=== PATIENT | female | born 1945 | race Caucasian/White ===

== ENCOUNTER 2016-06-28 12:12 | Inpatient (IN) | payer MEDICARE, OTHER ==
[2016-06-28] MEDS ORDERED: Ondansetron INJ* 2 MG/ML VIAL IV ONE (12:47)
[2016-06-28] MEDS ORDERED: NS 0.9% 1000 ML* 2,000 ML IV ONE (12:47)
[2016-06-28] MEDS ORDERED: HYDROmorphone* 2 MG/ML 1 ML SYR IV SLOW PU ONE (12:47)
[2016-06-28] MEDS ORDERED: Ondansetron INJ* 2 MG/ML VIAL IV PRN (13:35)
[2016-06-28 13:40] LABS: Hematocrit 31 % (35-47); Hemoglobin 10.1 g/dl (12.0-16.0); Mean Corpuscular HGB Conc 33 g/dl (31-36); Mean Corpuscular Hemoglobin 32 pg (27-31); Mean Corpuscular Volume 96 fL (80-97); Mean Platelet Volume 8 um3 (7.4-10.4); Red Blood Count 3.18 10^6/ul (4.0-5.4); Red Cell Distribution Width 15 % (10.5-15); White Blood Count 10.7 10^3/ul (3.5-10.8)
[2016-06-28] MEDS ORDERED: Loperamide CAP* 2 MG PO PRN (13:48)
[2016-06-28 13:55] LABS: Calcium 9.7 mg/dL (8.6-10.3); EGFR African American 76.4 (>60); EGFR Non-African American 59.4 (>60)
[2016-06-28] MEDS ORDERED: Cyclobenzaprine TAB* 10 MG PO PRN (14:13)
[2016-06-28] MEDS ORDERED: Al Hydrox/Mg Hydrox/Simet LIQ* 30 ML UDC PO PRN (14:27)
[2016-06-28] MEDS ORDERED: fentaNYL PATCH 12 MCG/HR TRANSDERM SCH (15:00)
[2016-06-28] MEDS: oxyCODONE TAB* 5 MG TAB PO PRN ×2 (15:47→22:02)
[2016-06-28] MEDS: Enoxaparin(*) 40 MG/0.4 ML SYR SUBCUT SCH (15:47)
[2016-06-28] MEDS: NS 0.9% 1000 ML* 1,000 ML IV SCH (15:56)
--- NOTE | 2016-06-28 16:33 | ED ---
Mod[place] Yan Adam, scribed for Gentry Hanley MD on 06/28/16 at 1237 . Back Pain - HPI Summary HPI Summary: Pt is a 71 year old female presenting with lower back pain. She was on hydrocodone for chronic back pain for years and she recently changed to oxycodone but she states that she has been vomiting them up recently. She also c /o diarrhea. She denies any burning during urination, blood in the urine, or any other urinary symptoms. Pt states that the back pain developed 6-7 weeks ago and after it persisted for 3 weeks she went to Dr. Cian. He set her up with a pain patch which she states does not alleviate the pain. Then she called Dr. Hathaway who set her up with an MRI on 06/21. She states that he called her and told her that the MRI revealed a slipped disc. The impression from the MRI report indicates degenerative disc disease, osteoarthritis, scoliosis, and multilevel neural foraminal narrowing. However, there is also an addendum stating: "On further review, there is an enhancing lesion of the pedicle of L2 on the right consistent with metastatic disease.. There is no significant epidural extension. There is mild paravertebral enhancement. This is best seen on axial image 21 of series 9." The pt is followed by Dr. Hathaway for her lung cancer. - History of Current Complaint Chief Complaint: EDBackInjuryPain Stated Complaint: BACK PAIN Time Seen by Provider: 06/28/16 12:28 Hx Obtained From: Patient Onset/Duration: Gradual Onset, Lasting Weeks, Still Present Onset/Duration: Atraumatic Timing: Constant Back Pain Location: Is Discrete @ - Lower back Severity Initially: Moderate Severity Currently: Moderate Pain Intensity: 10 Pain Scale Used: 0-10 Numeric Aggravating Symptom(s): Movement Alleviating Symptom(s): Nothing Associated Signs And Symptoms: Positive: Other - Nausea, vomiting, diarrhea - Allergies/Home Medications Allergies/Adverse Reactions: Allergies Allergy/AdvReac Type Severity Reaction Status Date / Time Carbamazepine Allergy Altered Verified 06/28/16 12:13 Mental Status Latex Allergy Unknown Verified 06/28/16 12:13 Reaction Details Nickel Allergy Unknown Verified 06/28/16 12:13 Reaction Details Hydrochlorothiazide AdvReac Mild See Comment Verified 06/28/16 12:13 w/Triamterene [From Dyazide] Home Medications: Home Medications Docusate CAP* [Colace Cap*] 100 mg PO DAILY 06/28/16 [History Confirmed 06/28/16 ] Fluocinolone Acetonide 0.01 % TOPICAL TID PRN 06/28/16 [History Confirmed ] Lidocaine PATCH 5%* [Lidoderm 5% Patch*] 1 patch TRANSDERM Q12HR 06/28/16 [ History Confirmed 06/28/16] Meloxicam(NF) [Mobic(NF)] 7.5 mg PO DAILY 06/28/16 [History Confirmed 06/28/16] Oxycodone TAB(NF) [Oxycodone HCl 10 MG] 10 - 20 mg PO Q4HR PRN MDD 80 mg [History Confirmed 06/28/16] Spironolactone TAB* [Aldactone TAB*] 25 mg PO DAILY 06/28/16 [History Confirmed 06/28/16] PMH/Surg Hx/FS Hx/Imm Hx Endocrine/Hematology History: Reports: Hx Systemic Lupus Erythematosus, Hx Thyroid Disease, Other Endocrine/Hematological Disorders - lupus Denies: Hx Diabetes Cardiovascular History: Reports: Hx Hypercholesterolemia, Hx Hypertension Denies: Hx Congestive Heart Failure, Hx Pacemaker/ICD Respiratory History: Reports: Hx Asthma, Hx Lung Cancer, Other Respiratory Problems/Disorders - ON 2L N/C AT HOME, O2 SAO2 ALWAYS LOW GI History: Reports: Other GI Disorders - hx of ulcers History: Denies: Hx Renal Disease Musculoskeletal History: Reports: Hx Arthritis - OSTEO, Hx Rheumatoid Arthritis , Hx Back Problems, Hx Scoliosis Sensory History: Reports: Hx Contacts or Glasses Denies: Hx Cataracts, Hx Hearing Aid Opthamlomology History: Reports: Hx Contacts or Glasses Denies: Hx Cataracts Neurological History: Reports: Other Neuro Impairments/Disorders - TRIGEMINAL NEURALAGIA Psychiatric History: Reports: Hx Depression Denies: Hx Panic Disorder - Cancer History Cancer Type, Location and Year: lung cancer-NO TREATMENT AT THIS TIME Hx Chemotherapy: Yes Hx Radiation Therapy: Yes - Surgical History Surgery Procedure, Year, and Place: Tonsillectomy and Adenoidectomy, D&C. Rt INDEX FINGER DEBRIDEMENT - FROM INFECTION Hx Anesthesia Reactions: No - Immunization History Date of Tetanus Vaccine: Up to date Date of Influenza Vaccine: Fall 2012 Infectious Disease History: No Infectious Disease History: Denies: Traveled Outside the [place] in Last 30 Days - Family History Known Family History: Positive: Other - cancer Family History: daughter lung cancer. mother, aunt breast cancer. sister colon and panceratic cancer - Social History Occupation: Retired Lives: With Family - Alcohol Use: Occasionally Alcohol Amount: 1 GLASS WINE MONTHLY Hx Substance Use: No Substance Use Type: Reports: None Hx Tobacco Use: Yes Smoking Status (MU): Former Smoker Review of Systems Negative: Fever, Chills Negative: Erythema Negative: Sore Throat Negative: Chest Pain Negative: Shortness Of Breath, Cough Positive: Vomiting, Diarrhea, Nausea. Negative: Abdominal Pain Negative: burning, dysuria, hematuria Positive: Myalgia - Lower back Negative: Rash Neurological: Other - Negative dizziness All Other Systems Reviewed And Are Negative: Yes Physical Exam - Summary Physical Exam Summary: Constitutional: Well-developed, Well-nourished, Alert. (-) Distressed Skin: Warm, Dry HENT: Normocephalic; Atraumatic Eyes: Conjunctiva normal Neck: Musculoskeletal ROM normal neck. (-) JVD, (-) Stridor, (-) Tracheal deviation Cardio: Rhythm regular, rate normal, Heart sounds normal; Intact distal pulses; The pedal pulses are 2+ and symmetric. Radial pulses are 2+ and symmetric. (-) Murmur Pulmonary/Chest wall: Effort normal. (-) Respiratory distress, (-) Wheezes, (-) Rales Abd: Soft, (-) Tenderness, (-) Distension, (-) Guarding, (-) Rebound Musculoskeletal: Profound tenderness in the lumbar area. Even the skin is sensitive to touch. Intact symmetric strength and sensation in bilateral lower extremities. Lymph: (-) Cervical adenopathy Neuro: Alert, Oriented x3 Psych: Mood and affect Normal Triage Information Reviewed: Yes Vital Signs On Initial Exam: Initial Vitals Temp Pulse Resp BP Pulse Ox 97.7 F 96 18 99/69 95 06/28/16 12:13 06/28/16 12:13 06/28/16 12:13 06/28/16 12:13 06/28/16 12:13 Vital Signs Reviewed: Yes Diagnostics - Vital Signs Vital Signs Temp Pulse Resp BP Pulse Ox 06/28/16 12:13 97.7 F 96 18 99/69 95 - Laboratory Lab Results: Lab Results 06/28/16 06/28/16 Range/Units 13:30 13:30 WBC 10.7 (3.5-10.8) 10^3/ul RBC 3.18 L (4.0-5.4) 10^6/ul Hgb 10.1 L (12.0-16.0) g/dl Hct 31 L (35-47) % MCV 96 (80-97) fL MCH 32 H (27-31) pg MCHC 33 (31-36) g/dl RDW 15 (10.5-15) % Plt Count 154 (150-450) 10^3/ul MPV 8 (7.4-10.4) um3 Sodium 134 (133-145) mmol/L Potassium 4.0 (3.5-5.0) mmol/L Chloride 95 L (101-111) mmol/L Carbon Dioxide 30 (22-32) mmol/L Anion Gap 9 (2-11) mmol/L BUN 27 H (6-24) mg/dL Creatinine 0.93 (0.51-0.95) mg/dL Est GFR ( Amer) 76.4 (>60) Est GFR (Non-Af Amer) 59.4 (>60) BUN/Creatinine Ratio 29.0 H (8-20) Glucose 112 H (70-100) mg/dL Calcium 9.7 (8.6-10.3) mg/dL Result Diagrams: 06/28/16 13:30 06/28/16 13:30 Lab Statement: Any lab studies that have been ordered have been reviewed, and results considered in the medical decision making process. Back Pain Course/Dx - Diagnoses Provider Diagnoses: Metastatic disease of bone, Low back pain, Failure to thrive - Provider Notifications Discussed Care of Patient With: Dr. Watson at 12:55. She agrees with the plan to give the patient IV fluids and pain control. Someone from oncology will come to the ED to consult with the patient and discuss the current status of her cancer. Tatum from oncology services at 13:35. They will admit the patient. Discharge - Discharge Plan Condition: Fair Disposition: ADMITTED TO [facility] The documentation as recorded by the Modesto silvestre Adam accurately reflects the service I personally performed and the decisions made by , Gentry Hanley MD.
[2016-06-28] MEDS: HYDROmorphone* 2 MG/ML 1 ML SYR IV SLOW PU PRN ×2 (18:29→23:32)
[2016-06-28] MEDS: fentaNYL Patch Check Q Shift 1 NOTE SCH (19:09)
[2016-06-28] MEDS ORDERED: Iodixanol* (CONTRAST) 320 MG/ML 100 ML SDV IV ONE (20:12)
--- NOTE | 2016-06-28 20:36 | RAD ---
HISTORY: Lung cancer COMPARISONS: CT of the chest dated June 06, 2016, PET/CT dated March 09, 2016 TECHNIQUE: Multiple contiguous axial CT scans were obtained of the chest, abdomen, and pelvis after the administration of intravenous contrast. Coronal and sagittal multiplanar reformations are submitted for review.. Oral contrast was administered. Delayed images were obtained through the abdomen and pelvis. FINDINGS: CHEST NECK AND THYROID: The lower neck and thyroid are unremarkable. CHEST WALL: There is no lower cervical, axillary, or supraclavicular lymphadenopathy by size criteria. HEART AND PERICARDIUM: The heart is unremarkable. AORTA AND PULMONARY VASCULATURE: There is calcification of the thoracic aorta. The pulmonary vasculature is unremarkable. MEDIASTINUM: There is no mediastinal lymphadenopathy by size criteria. ELLE: There are enlarged right hilar lymph nodes measuring up to 2 cm in short axis. AIRWAY AND ESOPHAGUS: There is bronchiectasis of the left upper lobe LUNG PARENCHYMA: There is diffuse centrilobular edematous change. There is persistent airspace disease of the left upper lobe. There is a 0.4 cm nodule of the left upper lobe on axial image 24. There is a transient nodule of the left lower lobe on axial image 32 measuring 0.6 cm. PLEURA: No pleural abnormalities are noted. BONES AND SOFT TISSUES: Degenerative changes are noted of the spine ABDOMEN/PELVIS: LIVER: The liver is normal in shape, size, contour, and attenuation. BILE DUCTS: There is no intrahepatic or extrahepatic biliary dilatation. GALLBLADDER: The gallbladder is normal, without pericholecystic inflammatory change. PANCREAS: The pancreas is normal, without mass or ductal dilatation. SPLEEN: Normal in size and appearance. UPPER GI TRACT: Evaluation of the gastrointestinal tract is limited by incomplete gastric distention. The upper GI tract is unremarkable. SMALL BOWEL \T\ MESENTERY: The small bowel is normal in contour, course, and caliber. There is no obstruction or dilatation. COLON: There are multiple diverticula of the distal colon. There is no pericolonic inflammatory change. ADRENALS: Normal bilaterally. KIDNEYS: The kidneys are normal in shape, size, contour, and axis. There is no hydronephrosis or nephrolithiasis. BLADDER: The bladder is smooth in contour. PELVIC ORGANS: The uterus is fibroid AORTA: There is calcific atherosclerotic disease of the abdominal aorta and its branches, without aneurysmal dilatation IVC: Unremarkable LYMPH NODES: There is no lymphadenopathy by size criteria. ABDOMINAL WALL: There is no evidence for abdominal wall hernia. BONES: There is a scoliotic curvature of the spine. There is degenerative change of the hips and spine OTHER: None IMPRESSION: PERSISTENT AIRSPACE DISEASE OF THE LEFT LUNG WITH MULTIPLE LEFT LUNG NODULES MEASURING UP TO 0.6 CM. RIGHT HILAR LYMPHADENOPATHY. ATHEROSCLEROSIS. DIVERTICULOSIS
[2016-06-28] MEDS: Lidocaine PATCH 5%* 1 PATCH TRANSDERM SCH (21:51)
[2016-06-28] MEDS: Gabapentin CAP(*) 300 MG PO SCH (22:02)
[2016-06-28] MEDS: Amitriptyline TAB* 25 MG PO PRN (22:12)
[2016-06-29] MEDS: NS 0.9% 1000 ML* 1,000 ML IV SCH ×2 (04:04→15:00)
[2016-06-29] MEDS: HYDROmorphone* 2 MG/ML 1 ML SYR IV SLOW PU PRN (04:47)
[2016-06-29] MEDS: Levothyroxine TAB* 125 MCG TAB PO SCH (06:16)
[2016-06-29 06:46] LABS: Hematocrit 28 % (35-47); Hemoglobin 9.3 g/dl (12.0-16.0); Mean Corpuscular HGB Conc 33 g/dl (31-36); Mean Corpuscular Hemoglobin 32 pg (27-31); Mean Corpuscular Volume 98 fL (80-97); Mean Platelet Volume 8 um3 (7.4-10.4); Red Blood Count 2.89 10^6/ul (4.0-5.4); Red Cell Distribution Width 14 % (10.5-15); White Blood Count 6.4 10^3/ul (3.5-10.8)
[2016-06-29 06:52] LABS: Albumin 3.1 g/dL (3.2-5.2); BUN/Creatinine Ratio 23.8 (8-20); Calcium 8.9 mg/dL (8.6-10.3); EGFR Non-African American 66.8 (>60); Globulin 3.4 g/dL (2-4); Total Bilirubin 0.8 mg/dL (0.2-1.0); Total Protein 6.5 g/dL (6.4-8.9)
[2016-06-29] MEDS: fentaNYL Patch Check Q Shift 1 NOTE SCH ×2 (07:13→19:09)
[2016-06-29 07:50] LABS: Urine Bacteria Absent (Absent); Urine Bilirubin Negative (Negative); Urine Glucose Negative (Negative); Urine Nitrite Negative (Negative)
[2016-06-29] MEDS: Aspirin Low Dose CHEW TAB* 81 MG PO SCH (08:51)
[2016-06-29] MEDS: Docusate CAP* 100 MG PO SCH (08:51)
[2016-06-29] MEDS: Gabapentin CAP(*) 300 MG PO SCH ×3 (08:51→20:30)
[2016-06-29] MEDS: Cetirizine* 10 MG TAB PO SCH (08:51)
[2016-06-29] MEDS: Atorvastatin* 10 MG TAB PO SCH (08:51)
[2016-06-29] MEDS: Cholecalciferol TAB* 1000 UNITS PO SCH (08:51)
[2016-06-29] MEDS: Omeprazole CAP* 20 MG PO SCH (08:52)
[2016-06-29] MEDS: Meloxicam(NF) 7.5 MG TAB PO SCH (11:17)
[2016-06-29] MEDS: Lidocaine Patch REMOVE* 1 NOTE MISC PATCH OFF SCH (11:25)
[2016-06-29] MEDS: Lidocaine PATCH 5%* 1 PATCH TRANSDERM SCH (11:25)
--- NOTE | 2016-06-29 12:23 | CONSULT ---
Consult Consult: Neurosurgery Consult Date of consult: 06/29/16 Reason for consult: Left lower extremity and low back pain HPI: This is a 71 year old female with past medical history significant for lung cancer, HTN, HLD, lupus, and hypothyroidism, who presented to the [facility] complaining of low back, left hip and left lower extremity pain for the past 6- 7 weeks. Currently she is experiencing low back pain with radiation primarily to the left hip and occasionally down the posterior thigh and into the lower leg , sparing the foot. Symptoms are worse with movement such as getting up out of bed. She has modified her gait to allow less weight bearing on the left leg, stating that she shuffles the left leg secondary to pain with weight bearing. Symptoms improve with laying down and limiting movement. She denies numbness, tingling and weakness of the lower extremities bilaterally. No pain in the right leg. She reports previous episodes of low back pain over the past 30 years for which she self medicated with pain medications and applied heat; symptoms always resolved. Allergies: 1. Carbamazepine 2. Latex 3. Nickel 4. Hydrochlorothiazide with Triamterene Home medications: 1. Amitriptyline TAB* [Elavil TAB*] 25 - 50 mg PO BEDTIME PRN 11/18/15 [History Confirmed 06/28/16] 2. Aspirin Low Dose CHEW TAB* [Aspirin Low Dose TAB*] 81 mg PO DAILY 11/18/15 [ History Confirmed 06/28/16] 3. Cholecalciferol TAB* [Vitamin D TAB*] 1,000 unit PO DAILY 11/18/15 [History Confirmed 06/28/16] 4. Gabapentin CAP(*) [Neurontin 300 CAP(*)] 900 mg PO TID 11/18/15 [History Confirmed 06/28/16] 5. Lansoprazole CAP (NF) [Prevacid CAP (NF)] 30 mg PO DAILY 11/18/15 [History Confirmed 06/28/16] 6. LevoCETirizine TAB (NF) [Xyzal TAB (NF)] 5 mg PO DAILY 11/18/15 [History Confirmed 06/28/16] 7. Levothyroxine TAB* [Synthroid 125 MCG TAB*] 125 mcg PO 0800 11/18/15 [ History Confirmed 06/28/16] 8. Pravastatin (NF) [Pravachol (NF)] 40 mg PO DAILY 11/18/15 [History Confirmed 06/28/16] 9. Acetaminophen TAB* [Tylenol TAB*] 650 mg PO Q6H PRN #0 tab 11/22/15 [Rx Confirmed 06/28/16] 10. Al Hydrox/Mg Hydrox/Matthew BULK* [Mylanta - BULK BOT*] 1 wyatt PO DAILY PRN 01/15 [History Confirmed 06/28/16] 11. Docusate CAP* [Colace Cap*] 100 mg PO DAILY 06/28/16 [History Confirmed ] 12. Fluocinolone Acetonide 0.01 % TOPICAL TID PRN 06/28/16 [History Confirmed ] 13. Lidocaine PATCH 5%* [Lidoderm 5% Patch*] 1 patch TRANSDERM Q12HR 06/28/16 [ History Confirmed 06/28/16] 14. Meloxicam(NF) [Mobic(NF)] 7.5 mg PO DAILY 06/28/16 [History Confirmed ] 15. Oxycodone TAB(NF) [Oxycodone HCl 10 MG] 10 - 20 mg PO Q4HR PRN MDD 80 mg [History Confirmed 06/28/16] 16. Spironolactone TAB* [Aldactone TAB*] 25 mg PO DAILY 06/28/16 [History Confirmed 06/28/16] Past medical history: 1. Lung cancer 2. HTN 3. Hypothyroidism 4. COPD 5. Hyperlipidemia 6. Lupus 7. GERD 8. Trigeminal neuralgia 9. Depression 10. Scoliosis Social history: The patient is retired and lives at home with her family. She is a former smoker. ROS: Full ROS completed and pertinent findings stated in HPI, all others negative. Physical Exam: Vital Signs: Temp Pulse Resp BP Pulse Ox 98.3 F 82 12 118/60 97 06/29/16 11:00 06/29/16 11:00 06/29/16 11:00 06/29/16 11:00 06/29/16 11:00 General: Alert and oriented elderly female, laying comfortably in bed. No distress HEENT: Head is normocephalic and atraumatic. PERRLA and EOMI. Sclerae anicteric. Corrective lenses in place. Gross hearing intact. Moist mucus membranes. Neck: Supple, symmetric. CV: Radial pulses 2+ and equal. Pedal pulses palpable and equal. Lungs: Breathing is nonlabored. Lungs are clear. Abdomen: NABS. Soft, nontender and nondistended. Hips: Severe tenderness with palpation of the left greater trochanter. Moderate pain with left hip rotation. No pain with palpation and rotation of right hip. Neuro: Speech is clear and coherent. CN II-XII intact. Strength in the bilateral lower extremities 5/5. Sensation intact to the bilateral lower extremities. SLR negative bilaterally. Imagin. MRI of the lumbar spine on 06/21/16 shows degenerative scoliosis most pronounced at L1-2 and disc displacement at L4-5 to the right. 2. Xray of the pelvis and left hip on 06/05/16 shows mild osteoarthritis. Assessment: This is a 71 year old female with a 6-7 week history of low back to left hip and lower extremity pain, not improved with rest, pain medication and heat. She presented to [facility] and was admitted for pain management. MRI of the lumbar spine shows HNP L4-5 to the right which is inconsistent with the patient' s symptoms. She is neurologically intact. Considering the patient's symptoms, physical exam findings and imaging results, there is no indication for neurosurgical intervention at this time. It is likely that her symptoms are related to the left hip. Plan: 1. Ortho consulted for evaluation of left hip. 2. Continue pain management. 3. No neurological surgery indicated.
[2016-06-29] MEDS ORDERED: methylPREDNISolone ACETATE 80* 80 MG/ML 1 ML VIAL IM ONE (13:44)
--- NOTE | 2016-06-29 14:18 | PN ---
Progress Note - Progress Note Note: After obtaining verbal and written consent, timeout in room preformed. Area of greatest tenderness palpated at Left greater trochanter. Region prepped with clora prep and alcohol swab. The left greater trochanteric bursa region was then injected with 80mg depomedrol and 8cc of 1% plain lidocaine without difficulty. Band aid applied to injection site. She understands that the area may become slightly more sore for a day or 2 prior to the cortisone becoming effective. She may follow up with Dr. Ruffin in the office 4-6 weeks if she continues to have lateral hip pain.
[2016-06-29] MEDS: Enoxaparin(*) 40 MG/0.4 ML SYR SUBCUT SCH (14:58)
--- NOTE | 2016-06-29 15:47 | CONS ---
ORTHOPEDIC CONSULTATION REPORT: DATE OF CONSULT: 06/29/16 SUPERVISING PHYSICIAN: Rose Ruffin MD (dictated by CHARLENE Jerry) CHIEF ORTHOPEDIC COMPLAINT: Left lateral hip pain. HISTORY OF PRESENT ILLNESS: The patient is a 71-year-old female with past medical history of hypertension, high cholesterol, lung cancer, lupus, hypothyroidism, who presented to the emergency department complaining of primarily low back pain and left lateral hip pain. She states this pain has been present for about 6 weeks. She states that she mentioned this to her primary care provider and pain medication was called in, but did not relieve her hip pain. She was frustrated that her pain is so severe that she has difficulty ambulating. She denies groin pain on the left and complained significantly of lateral leg pain with attempts at active or passive motion. She has had a longstanding history of lumbar degenerative back disease. She has been seen by Neurosurgery and it was felt that she does not have current radicular symptoms that would correlate with her current complaints. Orthopedic consultation, therefore, requested. PAST MEDICAL HISTORY: As above, hypertension, hyperlipidemia, lupus, hypothyroidism, chronic lumbar back pain, GERD, trigeminal neuralgia, depression , history of scoliosis. MEDICATIONS: 1. She takes Elavil 25 to 50 mg p.o. q.h.s. p.r.n. 2. Baby aspirin p.o. daily. 3. Vitamin D 1000 units p.o. daily. 4. Gabapentin 900 mg p.o. t.i.d. 5. Prevacid 30 mg p.o. daily. 6. Xyzal tablet 5 mg p.o. daily. 7. Levothyroxine 125 mcg p.o. daily. 8. Pravachol 40 mg p.o. daily. 9. Acetaminophen 650 mg p.o. q.h.s. p.r.n. 10. Mylanta p.o. daily p.r.n. 11. Fluocinolone topical cream t.i.d. 12. Lidoderm patch q.12 h. p.r.n. hip pain. 13. Meloxicam 7.5 mg p.o. daily. 14. Spironolactone 25 mg p.o. daily. 15. Oxycodone 10 to 20 mg p.o. q.4 h. p.r.n. severe pain. ALLERGIES: LATEX, NICKEL, HYDROCHLOROTHIAZIDE, CARBAMAZEPINE. SOCIAL HISTORY: The patient lives at home. She is a prior smoker. Denies use of alcohol. REVIEW OF SYSTEMS: Denies loss of consciousness, lightheadedness, dizziness, shortness of breath, chest pain, palpitations. Denies numbness or significant muscular weakness in either lower extremity, just complains of pain with motion to the lateral hip, the left lower extremity. PHYSICAL EXAMINATION: She is alert and oriented x3, in no acute distress. HEENT: PERRLA. EOMI. Lungs: Clear to auscultation. Heart: Regular rate and rhythm. Abdomen: Soft and nontender. Lumbar spine: She has diffuse tenderness to palpation throughout the lower lumbar segments without gross deformity, redness, swelling or erythema. The left hip fails to show any warmth , erythema or obvious edema. Passive motion of the hip does not elicit groin pain but causes lateral hip pain. She has exquisite point tenderness directly over the left greater trochanter. She has full active dorsiflexion and plantar flexion of the left ankle. EHL strength 5/5. Dorsiflexion strength 5/5. DIAGNOSTIC STUDIES/LAB DATA: X-ray examination of the pelvis reviewed with Dr. Ruffin shows minimal arthritic changes of the hip joint. No obvious fractures are identified. She does have degenerative changes noted at the lower lumbar segments of the lumbar spine. IMPRESSION: Trochanteric bursitis, left hip. PLAN: The patient is offered a Depo-Medrol injection to the trochanteric bursal region of the left hip. She elects to proceed as nothing else has been helpful in alleviating her pain. She understands risks including but not limited to irritation at the injection site, increased achiness post cortisone injection prior to improvement. We will see her in the office in followup in roughly 1 month to see how she responded to the cortisone injection. CHARLENE MCGINNIS [id number]/[facility] #: [id number] MICHAELA
[2016-06-29] MEDS: oxyCODONE TAB* 5 MG TAB PO PRN ×2 (16:29→20:30)
[2016-06-30] MEDS: oxyCODONE TAB* 5 MG TAB PO PRN ×5 (00:31→22:20)
[2016-06-30] MEDS: Amitriptyline TAB* 25 MG PO PRN ×3 (00:32→22:48)
[2016-06-30] MEDS: NS 0.9% 1000 ML* 1,000 ML IV SCH ×2 (00:55→12:26)
[2016-06-30] MEDS: Levothyroxine TAB* 125 MCG TAB PO SCH (05:24)
[2016-06-30 06:17] LABS: Albumin 2.8 g/dL (3.2-5.2); BUN/Creatinine Ratio 25.8 (8-20); Calcium 8.7 mg/dL (8.6-10.3); EGFR African American 113.5 (>60); EGFR Non-African American 88.3 (>60); Globulin 3.3 g/dL (2-4); Total Bilirubin 0.4 mg/dL (0.2-1.0); Total Protein 6.1 g/dL (6.4-8.9)
[2016-06-30] MEDS: fentaNYL Patch Check Q Shift 1 NOTE SCH ×2 (07:11→18:57)
[2016-06-30] MEDS: Docusate CAP* 100 MG PO SCH (09:33)
[2016-06-30] MEDS: Aspirin Low Dose CHEW TAB* 81 MG PO SCH (09:33)
[2016-06-30] MEDS: Gabapentin CAP(*) 300 MG PO SCH ×3 (09:33→19:54)
[2016-06-30] MEDS: Atorvastatin* 10 MG TAB PO SCH (09:34)
[2016-06-30] MEDS: Omeprazole CAP* 20 MG PO SCH (09:34)
[2016-06-30] MEDS: Cholecalciferol TAB* 1000 UNITS PO SCH (09:35)
[2016-06-30] MEDS: Lidocaine PATCH 5%* 1 PATCH TRANSDERM SCH (09:35)
[2016-06-30] MEDS: Cetirizine* 10 MG TAB PO SCH (09:35)
[2016-06-30] MEDS: Meloxicam(NF) 7.5 MG TAB PO SCH (09:43)
[2016-06-30] MEDS: Lidocaine Patch REMOVE* 1 NOTE MISC PATCH OFF SCH ×2 (09:44→22:19)
[2016-06-30] MEDS ORDERED: Metaxalone TAB* 800 MG PO ONE (10:26)
--- NOTE | 2016-06-30 11:27 | PN ---
Progress Note - Progress Note SOAP: Subjective: [71 y/o female admitted for back, hip pain. Patient had trochanteric bursa injection 06/29. Patient reports having decreased pain over her hip overnight and today, continues to have back pain and radiating pain down L leg. ] Objective: [General- appears in mild to moderate amount of pain, sitting in bed, AO MSK- Injection site over L hip without redness, drainage. Non-tender to mild palpation. ] Laboratory Results - last 24 hr 06/30/16 05:11 Sodium 133 Potassium 4.0 Chloride 99 L Carbon Dioxide 30 Anion Gap 4 BUN 17 Creatinine 0.66 Est GFR ( Amer) 113.5 Est GFR (Non-Af Amer) 88.3 BUN/Creatinine Ratio 25.8 H Glucose 119 H Calcium 8.7 Total Bilirubin 0.40 AST 48 H ALT 43 Alkaline Phosphatase 138 H Total Protein 6.1 L Albumin 2.8 L Globulin 3.3 Albumin/Globulin Ratio 0.8 L Vital Signs Temp 98.1 F 06/30/16 07:26 Pulse 65 06/30/16 07:26 Resp 18 06/30/16 09:34 BP 118/62 06/30/16 07:26 Pulse Ox 97 06/30/16 07:26 Intake & Output 06/29/16 06/30/16 06/30/16 18:59 06:59 18:59 Intake Total 2023 2205 230 Output Total 900 Balance 2023 1305 230 Intake: IV Fluids 1004 1545 NS (0.9%) 1004 1545 Oral 1020 660 230 Output: Urine 900 Other: Estimated Void Medium Small # Bowel Movements 0 0 # Voids 2 2 Assessment: [71 y/o with trochanteric bursitis s/p steroid injection 06/29 ] Plan: [- Follow up with Dr. Ruffin within 1 month for questions/ if pain returns. - Ortho to sign off. ]
[2016-06-30] MEDS: Enoxaparin(*) 40 MG/0.4 ML SYR SUBCUT SCH (13:37)
[2016-06-30] MEDS: HYDROmorphone* 1 MG/ML 1 ML SYR IV SLOW PU PRN ×2 (13:43→23:42)
[2016-06-30] MEDS ORDERED: oxyCODONE TAB* 5 MG TAB PO ONE (16:00)
[2016-06-30] MEDS ORDERED: fentaNYL PATCH 25 MCG/HR TRANSDERM SCH (18:05)
--- NOTE | 2016-06-30 18:18 | PN ---
Progress Note - Progress Note SOAP: ADDENDUM: sever pain, no better then admission. Not ambulatory and no support at home. Pain across pelvis and down leg. - Increase Fentanyl to 50 mcg - Oxycodone 10 mg q 3 - MRI pelvis, bone scan (can be in patient or out patient) - Bx L2 lesion (can be in patient or out patient)
[2016-06-30] MEDS ORDERED: Gadoteridol* (CONTRAST) 279.3 MG/ML 10 ML IV ONE (21:37)
[2016-06-30] MEDS: fentaNYL PATCH 50 MCG/HR TRANSDERM SCH (22:16)
[2016-07-01] MEDS: oxyCODONE TAB* 5 MG TAB PO PRN ×5 (02:52→21:06)
[2016-07-01] MEDS: NS 0.9% 1000 ML* 1,000 ML IV SCH ×2 (03:53→16:06)
[2016-07-01] MEDS: Levothyroxine TAB* 125 MCG TAB PO SCH (05:22)
[2016-07-01] MEDS: fentaNYL Patch Check Q Shift 1 NOTE SCH ×2 (06:53→19:10)
[2016-07-01] MEDS: HYDROmorphone* 1 MG/ML 1 ML SYR IV SLOW PU PRN (08:21)
--- NOTE | 2016-07-01 08:47 | PN ---
Progress Note - Progress Note SOAP: Subjective: very painful evening. can not get hip comfortable. lying flat for MRI very difficult. Objective: Vital Signs Temp Pulse Resp BP Pulse Ox 97.9 F 83 18 124/58 95 06/30/16 22:14 06/30/16 22:14 07/01/16 08:21 07/01/16 08:34 06/30/16 22:14 perr eomi op moist cta bl s1 s2 nl soft nt +bs ttp over left hip, did not move it warm legs no edema A+O x 3 MRI: personally reviewed with Dr. Mark. large tumor in left femur and neck with surrounding muscular edema Al Hydrox/Mg Hydrox/Simethicone (Maalox Plus*) 30 ml PO DAILY PRN PRN Reason: INDIGESTION Amitriptyline HCl (Elavil Tab*) 25 mg PO BEDTIME PRN PRN Reason: SLEEP Last Admin: 06/30/16 22:48 Dose: 25 mg Aspirin (Aspirin Low Dose Tab*) 81 mg PO DAILY [facility] Last Admin: 06/30/16 09:33 Dose: 81 mg Atorvastatin Calcium (Lipitor*) 10 mg PO DAILY [facility] PRN Reason: Protocol Last Admin: 06/30/16 09:34 Dose: 10 mg Cetirizine HCl (Zyrtec*) 10 mg PO DAILY [facility] Last Admin: 06/30/16 09:35 Dose: 10 mg Cholecalciferol (Vitamin D Tab*) 1,000 units PO DAILY [facility] Last Admin: 06/30/16 09:35 Dose: 1,000 units Docusate Sodium (Colace Cap*) 100 mg PO DAILY [facility] Last Admin: 06/30/16 09:33 Dose: 100 mg Enoxaparin Sodium (Lovenox(*)) 40 mg SUBCUT Q24H [facility] Last Admin: 06/30/16 13:37 Dose: 40 mg Fentanyl (Duragesic Patch 50 Mcg/Hr*) 50 mcg TRANSDERM Q72H [facility] Last Admin: 06/30/16 22:16 Dose: 50 mcg Gabapentin (Neurontin Cap(*)) 900 mg PO TID [facility] Last Admin: 06/30/16 19:54 Dose: 900 mg Hydromorphone HCl (Dilaudid Iv*) 0.5 mg IV SLOW PU Q4H PRN PRN Reason: PAIN - UNRELIEVED Last Admin: 07/01/16 08:21 Dose: 0.5 mg Sodium Chloride (Ns 0.9% 1000 Ml*) 1,000 mls @ 100 mls/hr IV PER RATE [facility] Last Admin: 07/01/16 03:53 Dose: 100 mls/hr Levothyroxine Sodium (Synthroid Tab*) 125 mcg PO 0600 [facility] Last Admin: 07/01/16 05:22 Dose: 125 mcg Lidocaine (Lidoderm 5% Patch*) 1 patch TRANSDERM DAILY [facility] Last Admin: 06/30/16 09:35 Dose: 1 patch Loperamide HCl (Imodium Cap*) 2 mg PO .SEE DIRECTIONS PRN PRN Reason: DIARRHEA Omeprazole (Prilosec Cap*) 20 mg PO DAILY [facility] PRN Reason: Protocol Last Admin: 06/30/16 09:34 Dose: 20 mg Ondansetron HCl (Zofran Inj*) 4 mg IV Q6H PRN PRN Reason: NAUSEA Oxycodone HCl (Roxycodone Tab*) 10 mg PO Q3H PRN PRN Reason: moderate pain Last Admin: 07/01/16 02:52 Dose: 10 mg Pharmacy Profile Note (Fentanyl Patch Check Q Shift) 1 note N/A 0700,1900 [facility] Last Admin: 07/01/16 06:53 Dose: 1 note Pharmacy Profile Note (Lidocaine Patch Remove*) 1 note PATCH OFF 2100 [facility] Last Admin: 06/30/16 22:19 Dose: 1 note Assessment: 71 yo F w PMH of locally advanced lung cancer in surveillance now admitted with intractable pain and found to have a large left femur lesion. Plan: -Dr. Ruffin to see today. I suspect that she will need surgical repair of this to stabilize the femur and get pathology. likely RT after -increase pain control today (increase dilaudid to 1 mg IV) -hold meloxicam pending likely surgery at some point in the next few days -cont lovenox sc DVT prophylaxis -full code
[2016-07-01] MEDS: Gabapentin CAP(*) 300 MG PO SCH ×3 (09:35→21:07)
[2016-07-01] MEDS: Atorvastatin* 10 MG TAB PO SCH (09:36)
[2016-07-01] MEDS: Omeprazole CAP* 20 MG PO SCH (09:36)
[2016-07-01] MEDS: Aspirin Low Dose CHEW TAB* 81 MG PO SCH (09:36)
[2016-07-01] MEDS: Cholecalciferol TAB* 1000 UNITS PO SCH (09:37)
[2016-07-01] MEDS: Cetirizine* 10 MG TAB PO SCH (09:37)
[2016-07-01] MEDS: Lidocaine PATCH 5%* 1 PATCH TRANSDERM SCH (09:37)
[2016-07-01] MEDS: Docusate CAP* 100 MG PO SCH (09:37)
--- NOTE | 2016-07-01 10:30 | RAD ---
INDICATION: Lung cancer, left hip pain. COMPARISON: Comparison is made with a prior MRI of the lumbar spine from June 21, [address] of the chest, abdomen and pelvis from June 28, 2016. TECHNIQUE: Axial, sagittal and coronal T1 and T2-weighted images of the pelvis were obtained. In addition axial, sagittal and coronal T1-weighted images were obtained following intravenous injection of 15 ml of ProHance nonionic contrast. FINDINGS: There is a large area of decreased signal intensity in T1-weighted images and increased signal intensity on T2-weighted images present within the left femoral neck, intertrochanteric region and proximal diaphysis. This is heterogeneous on T1-weighted images. There is diffuse contrast enhancement throughout this area. There is also increased signal intensity in T2-weighted images in the soft tissues surrounding the proximal femur with abnormal enhancement in this region. No fracture is seen. No other focal osseous abnormalities are noted. Incidental note is made of small fluid collections within both trochanteric bursa. No enlarged pelvic or inguinal lymph nodes are seen. No free intraperitoneal fluid is present. IMPRESSION: LARGE LESION WITHIN THE PROXIMAL LEFT FEMUR MOST CONSISTENT WITH METASTATIC DISEASE GIVEN THE PATIENT'S CLINICAL HISTORY. THIS WOULD PREDISPOSE INCREASED RISK FOR FRACTURE. THERE IS ALSO ABNORMAL SIGNAL AND ENHANCEMENT IN THE SURROUNDING SOFT TISSUES SUSPICIOUS FOR LOCAL TUMOR EXTENSION OR LOCALIZED INFLAMMATORY CHANGE.
--- NOTE | 2016-07-01 10:45 | PN ---
Progress Note - Progress Note SOAP: Subjective: Pt. reports 7 weeks of L lower back and L lateral hip/proximal thigh pain. She has difficulty moving hip and weightbearing. Recent consultation showed extreme ttp L greater trochanter and severe bursitis. The bursa was injected and this did not alleviate the pain. In the setting of lung cancer history and suspicious lesion L2, MRI pelvis was ordered by Dr. Hathaway. This shows metastatic disease to L proximal femur. Today patient reports 8/10 pain L lateral hip and low back. Objective: LLE - extreme ttp L paraspinal muscles and greater trochanteric region. Hip flexion to 90 degrees with lower back and lateral hip pain, no groin pain. Skin intact with no abrasions or open wounds. Distally nvi. Vital Signs: Temp Pulse Resp BP Pulse Ox 97.9 F 83 16 124/58 95 06/30/16 22:14 06/30/16 22:14 07/01/16 09:36 07/01/16 08:34 06/30/16 22:14 Assessment: 71 yo F with prior lung cancer, now presenting with likely metastasis to lumbar spine and L proximal femur. She is unable to ambulate or weightbear on LLE and has uncontrolled pain. Plan: I discussed MRI results and options with the patient and her daughter today. I gave them nonoperative options (XRT and chemo) vs operative options ( prophylactic IM nail with subsequent XRT and chemo). We discussed risks and benefits of both options. Patient wants to ambulate as soon as possible and chooses option that will prevent a fracture with the most certainty. She would like to proceed with prophylactic IM nail. I can biopsy the lesion at the time of surgery. She understands she will likely need postoperative chemo and radiation. I will order xrays L femur and knee. I will order MRI for 4/3 L femur. These films are for preop planning. Plan will be 07/04/16 L femur prophylactic IM nailing for metastatic disease and inability to ambulate. Of note, I did offer transfer of care to an orthopedic tumor specialist in [place] or [place]. The patient would like to avoid travel and wishes to be treated here. I discussed this plan with Dr. Watson who feels it is appropriate. She will facilitate management and preoperative medical optimization. Thank you for this orthopedic consultation.
--- NOTE | 2016-07-01 11:41 | RAD ---
INDICATION: Metastatic disease left femur. TECHNIQUE: 2 views of the left knee were obtained. FINDINGS: The bones are in normal alignment. No significant focal osseous abnormality or fracture is seen. No joint effusion is present. There is mild osteoarthritic change in the medial compartment of the knee. IMPRESSION: NO FOCAL OSSEOUS ABNORMALITY IS SEEN.
--- NOTE | 2016-07-01 11:44 | RAD ---
INDICATION: Left femur metastatic disease. TECHNIQUE: 2 views of the left femur were obtained. FINDINGS: The bones are in normal alignment. No significant focal osseous abnormality is noted to correlate with the prior MRI lesion in the proximal femur. IMPRESSION: NO FOCAL OSSEOUS ABNORMALITY IS SEEN TO CORRELATE WITH THE METASTATIC LESION NOTED ON THE PRIOR MRI STUDY.
[2016-07-01] MEDS: Enoxaparin(*) 40 MG/0.4 ML SYR SUBCUT SCH (13:07)
[2016-07-01] MEDS: Lidocaine Patch REMOVE* 1 NOTE MISC PATCH OFF SCH (21:13)
[2016-07-01] MEDS: Amitriptyline TAB* 25 MG PO PRN (23:35)
[2016-07-02] MEDS: NS 0.9% 1000 ML* 1,000 ML IV SCH ×2 (02:22→13:01)
[2016-07-02] MEDS: Levothyroxine TAB* 125 MCG TAB PO SCH (05:43)
[2016-07-02] MEDS: HYDROmorphone* 1 MG/ML 1 ML SYR IV SLOW PU PRN ×4 (07:22→23:34)
[2016-07-02] MEDS: oxyCODONE TAB* 5 MG TAB PO PRN ×2 (07:23→14:22)
[2016-07-02] MEDS: fentaNYL Patch Check Q Shift 1 NOTE SCH ×2 (07:28→20:00)
[2016-07-02] MEDS: Atorvastatin* 10 MG TAB PO SCH (08:31)
[2016-07-02] MEDS: Aspirin Low Dose CHEW TAB* 81 MG PO SCH (08:31)
[2016-07-02] MEDS: Omeprazole CAP* 20 MG PO SCH (08:31)
[2016-07-02] MEDS: Cetirizine* 10 MG TAB PO SCH (08:32)
[2016-07-02] MEDS: Docusate CAP* 100 MG PO SCH (08:32)
[2016-07-02] MEDS: Cholecalciferol TAB* 1000 UNITS PO SCH (08:32)
[2016-07-02] MEDS: Gabapentin CAP(*) 300 MG PO SCH ×3 (08:32→19:51)
[2016-07-02] MEDS: Lidocaine PATCH 5%* 1 PATCH TRANSDERM SCH (08:33)
--- NOTE | 2016-07-02 09:33 | PN ---
Subjective Date of Service: 07/02/16 Interval History: Patient A+O x3 sitting up on the side of the bed eating breakfast. She reports her pain is "much much better today" rating it 5/6 down from "14" reporting mostly low back pain with occasional left femur pain. Is able to bear weight but is uncomfortable. Denies any fever or chills. Reports good appetite. No N/V/ D. Denies SOB or CP. Is on home oxygen of 2L NC Objective Active Medications: Al Hydrox/Mg Hydrox/Simethicone (Maalox Plus*) 30 ml PO DAILY PRN PRN Reason: INDIGESTION Amitriptyline HCl (Elavil Tab*) 25 mg PO BEDTIME PRN PRN Reason: SLEEP Last Admin: 07/01/16 23:35 Dose: 25 mg Aspirin (Aspirin Low Dose Tab*) 81 mg PO DAILY [facility] Last Admin: 07/02/16 08:31 Dose: 81 mg Atorvastatin Calcium (Lipitor*) 10 mg PO DAILY [facility] PRN Reason: Protocol Last Admin: 07/02/16 08:31 Dose: 10 mg Cetirizine HCl (Zyrtec*) 10 mg PO DAILY [facility] Last Admin: 07/02/16 08:32 Dose: 10 mg Cholecalciferol (Vitamin D Tab*) 1,000 units PO DAILY [facility] Last Admin: 07/02/16 08:32 Dose: 1,000 units Docusate Sodium (Colace Cap*) 100 mg PO DAILY [facility] Last Admin: 07/02/16 08:32 Dose: 100 mg Enoxaparin Sodium (Lovenox(*)) 40 mg SUBCUT Q24H [facility] Last Admin: 07/01/16 13:07 Dose: 40 mg Fentanyl (Duragesic Patch 50 Mcg/Hr*) 50 mcg TRANSDERM Q72H [facility] Last Admin: 06/30/16 22:16 Dose: 50 mcg Gabapentin (Neurontin Cap(*)) 900 mg PO TID [facility] Last Admin: 07/02/16 08:32 Dose: 900 mg Hydromorphone HCl (Dilaudid Iv*) 1 mg IV SLOW PU Q4H PRN PRN Reason: PAIN - UNRELIEVED Last Admin: 07/02/16 07:22 Dose: 1 mg Sodium Chloride (Ns 0.9% 1000 Ml*) 1,000 mls @ 100 mls/hr IV PER RATE [facility] Last Admin: 07/02/16 02:22 Dose: 100 mls/hr Levothyroxine Sodium (Synthroid Tab*) 125 mcg PO 0600 [facility] Last Admin: 07/02/16 05:43 Dose: 125 mcg Lidocaine (Lidoderm 5% Patch*) 1 patch TRANSDERM DAILY [facility] Last Admin: 07/02/16 08:33 Dose: 1 patch Loperamide HCl (Imodium Cap*) 2 mg PO .SEE DIRECTIONS PRN PRN Reason: DIARRHEA Omeprazole (Prilosec Cap*) 20 mg PO DAILY [facility] PRN Reason: Protocol Last Admin: 07/02/16 08:31 Dose: 20 mg Ondansetron HCl (Zofran Inj*) 4 mg IV Q6H PRN PRN Reason: NAUSEA Oxycodone HCl (Roxycodone Tab*) 10 mg PO Q3H PRN PRN Reason: moderate pain Last Admin: 07/02/16 07:23 Dose: 10 mg Pharmacy Profile Note (Fentanyl Patch Check Q Shift) 1 note N/A 0700,1900 [facility] Last Admin: 07/02/16 07:28 Dose: 1 note Pharmacy Profile Note (Lidocaine Patch Remove*) 1 note PATCH OFF 2100 [facility] Last Admin: 07/01/16 21:13 Dose: Not Given Vital Signs 07/01/16 07/01/16 07/02/16 23:06 23:07 00:16 Temperature 97.9 F Pulse Rate 79 Respiratory 16 16 16 Rate Blood Pressure 103/58 (mmHg) O2 Sat by Pulse 93 Oximetry 07/02/16 07/02/16 07/02/16 07:09 07:22 07:23 Temperature 98.4 F Pulse Rate 74 Respiratory 18 16 16 Rate Blood Pressure 116/61 (mmHg) O2 Sat by Pulse 97 Oximetry 07/02/16 07/02/16 07/02/16 08:00 08:22 08:32 Temperature Pulse Rate Respiratory 18 18 18 Rate Blood Pressure (mmHg) O2 Sat by Pulse Oximetry Oxygen Devices in Use Now: Nasal Cannula - 2L NC Appearance: 71 yo female sitting up A+O x3 in NAD Eyes: No Scleral Icterus, PERRLA Ears/Nose/Mouth/Throat: NL Teeth, Lips, Gums, Mucous Membranes Moist Neck: NL Appearance and Movements; NL JVP Respiratory: Symmetrical Chest Expansion and Respiratory Effort, Clear to Auscultation Cardiovascular: NL Sounds; No Murmurs; No JVD, RRR, No Edema Abdominal: NL Sounds; No Tenderness; No Distention Extremities: No Edema, No Clubbing, Cyanosis, - - strength 5/5 throughout - no pain to palpation of Left femur. Skin: No Rash or Ulcers, No Nodules or Sclerosis Neurological: Alert and Oriented x 3 Lines/Tubes/Other Access: Clean, Dry and Intact Peripheral IV Nutrition: Taking PO's Result Diagrams: 06/29/16 05:46 06/30/16 05:11 Additional Lab and Data: Lab Results 06/28/16 06/28/16 Range/Units 13:30 13:30 WBC 10.7 (3.5-10.8) 10^3/ul RBC 3.18 L (4.0-5.4) 10^6/ul Hgb 10.1 L (12.0-16.0) g/dl Hct 31 L (35-47) % MCV 96 (80-97) fL MCH 32 H (27-31) pg MCHC 33 (31-36) g/dl RDW 15 (10.5-15) % Plt Count 154 (150-450) 10^3/ul MPV 8 (7.4-10.4) um3 Sodium 134 (133-145) mmol/L Potassium 4.0 (3.5-5.0) mmol/L Chloride 95 L (101-111) mmol/L Carbon Dioxide 30 (22-32) mmol/L Anion Gap 9 (2-11) mmol/L BUN 27 H (6-24) mg/dL Creatinine 0.93 (0.51-0.95) mg/dL Est GFR ( Amer) 76.4 (>60) Est GFR (Non-Af Amer) 59.4 (>60) BUN/Creatinine Ratio 29.0 H (8-20) Glucose 112 H (70-100) mg/dL Calcium 9.7 (8.6-10.3) mg/dL Assess/Plan/Problems-Billing Assessment: 71 yo F w PMH of locally advanced lung cancer in surveillance now admitted with intractable pain and found to have a large left femur lesion. - Patient Problems (1) Left femur lesion Comment: - Dispo per Ortho and Onc - Plan to take the patient to the OR on 4/4 L Femur prophylatic IM nailing for metastatic disease. Plan for pre-op MRI tomorrow. - Improved pain control, continue pain management (2) HTN (hypertension) Comment: - controlled off medication (3) Hypothyroid Comment: - continue synthroid (4) Full code status (5) DVT prophylaxis Comment: - lovenox SQ daily Status and Disposition: inpatient. Dispo per Ortho and ONC.
[2016-07-02] MEDS: Enoxaparin(*) 40 MG/0.4 ML SYR SUBCUT SCH (13:00)
[2016-07-02] MEDS: Amitriptyline TAB* 25 MG PO PRN (23:34)
[2016-07-02] MEDS: Lidocaine Patch REMOVE* 1 NOTE MISC PATCH OFF SCH (23:37)
[2016-07-03] MEDS: NS 0.9% 1000 ML* 1,000 ML IV SCH (02:04)
[2016-07-03] MEDS: Levothyroxine TAB* 125 MCG TAB PO SCH (05:02)
[2016-07-03] MEDS: HYDROmorphone* 1 MG/ML 1 ML SYR IV SLOW PU PRN ×3 (05:02→19:53)
[2016-07-03] MEDS: fentaNYL Patch Check Q Shift 1 NOTE SCH ×2 (06:59→23:24)
[2016-07-03] MEDS: oxyCODONE TAB* 5 MG TAB PO PRN ×3 (07:39→16:17)
[2016-07-03] MEDS: Gabapentin CAP(*) 300 MG PO SCH ×3 (10:13→21:50)
[2016-07-03] MEDS: Atorvastatin* 10 MG TAB PO SCH (10:14)
[2016-07-03] MEDS: Cholecalciferol TAB* 1000 UNITS PO SCH (10:15)
[2016-07-03] MEDS: Omeprazole CAP* 20 MG PO SCH (10:15)
[2016-07-03] MEDS: Docusate CAP* 100 MG PO SCH (10:15)
[2016-07-03] MEDS: Lidocaine PATCH 5%* 1 PATCH TRANSDERM SCH (10:15)
[2016-07-03] MEDS: Aspirin Low Dose CHEW TAB* 81 MG PO SCH (10:15)
[2016-07-03] MEDS: Cetirizine* 10 MG TAB PO SCH (10:15)
--- NOTE | 2016-07-03 11:08 | PN ---
Progress Note - Progress Note SOAP: Subjective: []Pain is better, 4/10 at rest, but still 10/10 with activity. She had difficulty with scan on Sunday. Planning bone scan and MRI today followed by surgery. She is worried about caring for her 8 year old grandson for whom she has custody. Al Hydrox/Mg Hydrox/Simethicone (Maalox Plus*) 30 ml PO DAILY PRN PRN Reason: INDIGESTION Amitriptyline HCl (Elavil Tab*) 25 mg PO BEDTIME PRN PRN Reason: SLEEP Last Admin: 07/02/16 23:34 Dose: 25 mg Aspirin (Aspirin Low Dose Tab*) 81 mg PO DAILY [facility] Last Admin: 07/03/16 10:15 Dose: 81 mg Atorvastatin Calcium (Lipitor*) 10 mg PO DAILY [facility] PRN Reason: Protocol Last Admin: 07/03/16 10:14 Dose: 10 mg Cetirizine HCl (Zyrtec*) 10 mg PO DAILY [facility] Last Admin: 07/03/16 10:15 Dose: 10 mg Cholecalciferol (Vitamin D Tab*) 1,000 units PO DAILY [facility] Last Admin: 07/03/16 10:15 Dose: 1,000 units Docusate Sodium (Colace Cap*) 100 mg PO DAILY [facility] Last Admin: 07/03/16 10:15 Dose: 100 mg Enoxaparin Sodium (Lovenox(*)) 40 mg SUBCUT Q24H [facility] Last Admin: 07/02/16 13:00 Dose: 40 mg Fentanyl (Duragesic Patch 50 Mcg/Hr*) 50 mcg TRANSDERM Q72H [facility] Last Admin: 06/30/16 22:16 Dose: 50 mcg Gabapentin (Neurontin Cap(*)) 900 mg PO TID [facility] Last Admin: 07/03/16 10:13 Dose: 900 mg Hydromorphone HCl (Dilaudid Iv*) 1 mg IV SLOW PU Q4H PRN PRN Reason: PAIN - UNRELIEVED Last Admin: 07/03/16 05:02 Dose: 1 mg Sodium Chloride (Ns 0.9% 1000 Ml*) 1,000 mls @ 75 mls/hr IV PER RATE [facility] Last Admin: 07/03/16 02:04 Dose: 75 mls/hr Levothyroxine Sodium (Synthroid Tab*) 125 mcg PO 0600 [facility] Last Admin: 07/03/16 05:02 Dose: 125 mcg Lidocaine (Lidoderm 5% Patch*) 1 patch TRANSDERM DAILY [facility] Last Admin: 07/03/16 10:15 Dose: 1 patch Loperamide HCl (Imodium Cap*) 2 mg PO .SEE DIRECTIONS PRN PRN Reason: DIARRHEA Omeprazole (Prilosec Cap*) 20 mg PO DAILY [facility] PRN Reason: Protocol Last Admin: 07/03/16 10:15 Dose: 20 mg Ondansetron HCl (Zofran Inj*) 4 mg IV Q6H PRN PRN Reason: NAUSEA Oxycodone HCl (Roxycodone Tab*) 10 mg PO Q3H PRN PRN Reason: moderate pain Last Admin: 07/03/16 10:44 Dose: 10 mg Pharmacy Profile Note (Fentanyl Patch Check Q Shift) 1 note N/A 0700,1900 [facility] Last Admin: 07/03/16 06:59 Dose: 1 note Pharmacy Profile Note (Lidocaine Patch Remove*) 1 note PATCH OFF 2100 [facility] Last Admin: 07/02/16 23:37 Dose: Not Given Objective: [] Vital Signs Temp Pulse Resp BP Pulse Ox 98.6 F 87 18 126/55 96 07/03/16 07:38 07/03/16 07:38 07/03/16 10:44 07/03/16 07:38 07/03/16 07:38 HEENT:Mucosa moist CTA RRR S1S2 +BS, NT/ND Ext good pulses and warm Assessment: []71 year old with recurrent lung cancer with disease in left femur, bone unstable, intractable pain. Plan: []1. MRI and Bone scan today to complete staging and pre-op testing. 2. Pulmonary function was adequate for surgery based on PFTs from 05/2016 3. Low risk surgery, consult Hospitalist service for cardiac risk stratification. 4. Plan surgical fixation of hip followed by Radiation and [facility] 5. Biopsy of tumor with surgery, send for PD-1 and likely [facility]. 6. No change in pain medication today, will give one time IV prior to scans.
[2016-07-03] MEDS ORDERED: HYDROmorphone* 2 MG/ML 1 ML SYR IV SLOW PU ONE (11:11)
--- NOTE | 2016-07-03 12:38 | PN ---
Progress Note - Progress Note SOAP: Subjective: Pt. is alert today, continues to have wb pain. She would like to proceed with surgery. Objective: LLE - distally nvi. pain with L hip motion. Vital Signs: Temp Pulse Resp BP Pulse Ox 98.6 F 87 18 126/55 96 07/03/16 07:38 07/03/16 07:38 07/03/16 10:44 07/03/16 07:38 07/03/16 07:38 Assessment: 71 yo with metastastic lung carcinoma. LLE intractable pain and difficulty ambulating. MRI shows L proximal femur mets with cortical involvement. Plan: NPO after midnight for prophylactic IM nail L femur Discussed plan with Dr. Hathaway protected wb lle with RW prn analgesia plan MRI L femur and bone scan today to complete staging. plan XRT and IV postop for full treatment
[2016-07-03 13:01] LABS: EGFR African American 89.6 (>60); EGFR Non-African American 69.7 (>60)
--- NOTE | 2016-07-03 14:05 | RAD ---
INDICATION: History of low back and LEFT leg pain. History of lung carcinoma. Metastatic lesion at the proximal LEFT femur on MRI. COMPARISON: July 01, 2016 LEFT femur and knee radiographs. June 28, 2016 CT chest, abdomen, pelvis. June 30, 2016 MRI pelvis. TECHNIQUE: 20.880 mCi of Tc-99m MDP were injected IV. The whole body was scanned in anterior and posterior projections approximately 2 hours after the injection. FINDINGS: There is increased activity at the intratrochanteric and subtrochanteric region of the LEFT proximal femur corresponding with the metastatic lesion on recent pelvic MRI. Focal increased activity at the RIGHT L2 pedicle level noted without definitive corresponding osteolytic or osteoblastic lesion on CT possibly reflecting a CT occult osseous metastasis or reactive change secondary to degenerative facet joint arthropathy. Mild increased at the hands and feet as well as the shoulders typical for presence of arthropathy. The kidneys are normal in size and position and without evidence for obstructive uropathy. IMPRESSION: 1. Increased activity at the osseous metastasis at the proximal LEFT femur documented on June 30, 2016 MRI. 2. Potential additional osseous metastasis involving the RIGHT L2 pedicle. MRI of the lumbar sacral spine pending for further assessment. CPT II: CPT II Codes: 3570F
[2016-07-03] MEDS: Enoxaparin(*) 40 MG/0.4 ML SYR SUBCUT SCH (14:58)
[2016-07-03] MEDS ORDERED: Gadoteridol* (CONTRAST) 279.3 MG/ML 10 ML IV ONE (15:48)
[2016-07-03 16:26] LABS: Hematocrit 26 % (35-47); Hemoglobin 8.8 g/dl (12.0-16.0); Mean Corpuscular HGB Conc 34 g/dl (31-36); Mean Corpuscular Hemoglobin 33 pg (27-31); Mean Corpuscular Volume 97 fL (80-97); Mean Platelet Volume 9 um3 (7.4-10.4); Red Blood Count 2.69 10^6/ul (4.0-5.4); Red Cell Distribution Width 14 % (10.5-15); White Blood Count 6.2 10^3/ul (3.5-10.8)
[2016-07-03 17:12] LABS: Albumin 3.1 g/dL (3.2-5.2); BUN/Creatinine Ratio 16.7 (8-20); Calcium 8.7 mg/dL (8.6-10.3); EGFR African American 93.6 (>60); EGFR Non-African American 72.8 (>60); Globulin 3.3 g/dL (2-4); Potassium 4.3 mmol/L (3.5-5.0); Total Bilirubin 0.4 mg/dL (0.2-1.0); Total Protein 6.4 g/dL (6.4-8.9)
[2016-07-03] MEDS: fentaNYL PATCH 50 MCG/HR TRANSDERM SCH (17:28)
--- NOTE | 2016-07-03 17:33 | HOSP.PREOP ---
Subjective Date of Service: 07/03/16 Interval History: . Patient A+Ox3 sitting up in bed in [facility] visiting with family. She reports intermittent leg pain but states it is better controlled. [place] ever having CP. Reports she was very active up until 7 weeks ago when she developed leg/low back pain. She reports good exercise activity. Denies ever having CP. Reports SOB at her baseline with home oxygen 2L NC 23/10 but states this doesn't slow her down with being active. No Hx of CAD or CVA. Denies problems in the past with anesthesia. Review of Systems - Measurements Intake and Output: Intake and Output Last 24 Hours 07/01/16 07/02/16 07/03/16 07/04/16 06:59 06:59 06:59 06:59 Intake Total 2490 4337 2760 3156 Output Total 3250 4175 1925 1675 Balance -760 110 634 4391 Weight 157 lb 157 lb Intake: IV Fluids 1620 1607 1150 2726 NS (0.9%) 1620 1607 1150 2726 Oral 870 2730 1610 430 Output: Urine 3250 4175 1925 1675 Other: Estimated Void Large Small # Bowel Movements 0 0 Estimated Stool Amount Medium # Voids 4 1 - Review of Systems Constitutional Symptoms: Positive: Fatigue Dermatology: Positive: Normal HEENT: Positive: Normal Eyes: Positive: Normal Thyroid: Positive: Normal Pulmonary: Positive: Cough, COPD, Home Oxygen Cardiology: Negative: Chest Pain, Swelling of Ankles, Syncope, Orthopnoea Gastroenterology: Positive: Normal Genital - Urinary: Positive: Normal Genitourinay - Female: Positive: Menopause Endocrinology: Positive: Normal Neurology: Positive: Normal Psychiatry: Positive: Normal Objective Active Medications: Al Hydrox/Mg Hydrox/Simethicone (Maalox Plus*) 30 ml PO DAILY PRN PRN Reason: INDIGESTION Amitriptyline HCl (Elavil Tab*) 25 mg PO BEDTIME PRN PRN Reason: SLEEP Last Admin: 07/02/16 23:34 Dose: 25 mg Aspirin (Aspirin Low Dose Tab*) 81 mg PO DAILY JYOTHI Last Admin: 07/03/16 10:15 Dose: 81 mg Atorvastatin Calcium (Lipitor*) 10 mg PO DAILY JYOTHI PRN Reason: Protocol Last Admin: 07/03/16 10:14 Dose: 10 mg Cetirizine HCl (Zyrtec*) 10 mg PO DAILY [facility] Last Admin: 07/03/16 10:15 Dose: 10 mg Cholecalciferol (Vitamin D Tab*) 1,000 units PO DAILY [facility] Last Admin: 07/03/16 10:15 Dose: 1,000 units Docusate Sodium (Colace Cap*) 100 mg PO DAILY [facility] Last Admin: 07/03/16 10:15 Dose: 100 mg Enoxaparin Sodium (Lovenox(*)) 40 mg SUBCUT Q24H [facility] Last Admin: 07/03/16 14:58 Dose: 40 mg Fentanyl (Duragesic Patch 50 Mcg/Hr*) 50 mcg TRANSDERM Q72H [facility] Last Admin: 07/03/16 17:28 Dose: 50 mcg Gabapentin (Neurontin Cap(*)) 900 mg PO TID [facility] Last Admin: 07/03/16 14:58 Dose: 900 mg Hydromorphone HCl (Dilaudid Iv*) 1 mg IV SLOW PU Q4H PRN PRN Reason: PAIN - UNRELIEVED Last Admin: 07/03/16 12:39 Dose: 1 mg Sodium Chloride (Ns 0.9% 1000 Ml*) 1,000 mls @ 75 mls/hr IV PER RATE [facility] Last Admin: 07/03/16 02:04 Dose: 75 mls/hr Levothyroxine Sodium (Synthroid Tab*) 125 mcg PO 0600 [facility] Last Admin: 07/03/16 05:02 Dose: 125 mcg Lidocaine (Lidoderm 5% Patch*) 1 patch TRANSDERM DAILY [facility] Last Admin: 07/03/16 10:15 Dose: 1 patch Loperamide HCl (Imodium Cap*) 2 mg PO .SEE DIRECTIONS PRN PRN Reason: DIARRHEA Omeprazole (Prilosec Cap*) 20 mg PO DAILY [facility] PRN Reason: Protocol Last Admin: 07/03/16 10:15 Dose: 20 mg Ondansetron HCl (Zofran Inj*) 4 mg IV Q6H PRN PRN Reason: NAUSEA Oxycodone HCl (Roxycodone Tab*) 10 mg PO Q3H PRN PRN Reason: moderate pain Last Admin: 07/03/16 16:17 Dose: 10 mg Pharmacy Profile Note (Fentanyl Patch Check Q Shift) 1 note N/A 0700,1900 [facility] Last Admin: 07/03/16 06:59 Dose: 1 note Pharmacy Profile Note (Lidocaine Patch Remove*) 1 note PATCH OFF 2100 JYOTHI Last Admin: 07/02/16 23:37 Dose: Not Given Vital Signs 07/02/16 07/02/16 07/02/16 19:45 19:46 19:51 Temperature Pulse Rate Respiratory 20 20 20 Rate Blood Pressure (mmHg) O2 Sat by Pulse Oximetry 07/02/16 07/02/16 07/02/16 20:00 20:46 21:51 Temperature Pulse Rate Respiratory 20 16 16 Rate Blood Pressure (mmHg) O2 Sat by Pulse Oximetry 07/02/16 07/02/16 07/03/16 23:22 23:34 00:34 Temperature 98.3 F Pulse Rate 87 Respiratory 18 20 18 Rate Blood Pressure 150/63 (mmHg) O2 Sat by Pulse 100 Oximetry 07/03/16 07/03/16 07/03/16 05:02 06:02 07:38 Temperature 98.6 F Pulse Rate 87 Respiratory 16 18 18 Rate Blood Pressure 126/55 (mmHg) O2 Sat by Pulse 96 Oximetry 07/03/16 07/03/16 07/03/16 07:39 08:00 09:39 Temperature Pulse Rate Respiratory 16 18 18 Rate Blood Pressure (mmHg) O2 Sat by Pulse Oximetry 07/03/16 07/03/16 07/03/16 10:13 10:44 12:39 Temperature Pulse Rate Respiratory 16 18 18 Rate Blood Pressure (mmHg) O2 Sat by Pulse Oximetry 07/03/16 07/03/16 07/03/16 13:39 14:58 15:49 Temperature 98.9 F Pulse Rate 85 Respiratory 16 18 16 Rate Blood Pressure 121/59 (mmHg) O2 Sat by Pulse 91 Oximetry 07/03/16 07/03/16 16:17 17:28 Temperature Pulse Rate Respiratory 18 16 Rate Blood Pressure (mmHg) O2 Sat by Pulse Oximetry Oxygen Devices in Use Now: Nasal Cannula - 2L NC Appearance: 71 yo female sitting up in bed in NAD. A+O x3 Eyes: No Scleral Icterus, PERRLA Ears/Nose/Mouth/Throat: Clear Oropharnyx, Mucous Membranes Moist Neck: NL Appearance and Movements; NL JVP Respiratory: Symmetrical Chest Expansion and Respiratory Effort, Clear to Auscultation Cardiovascular: NL Sounds; No Murmurs; No JVD, RRR, No Edema Abdominal: NL Sounds; No Tenderness; No Distention Extremities: No Edema, No Clubbing, Cyanosis Skin: No Rash or Ulcers, No Nodules or Sclerosis Neurological: Alert and Oriented x 3, NL Sensation, - - guarded with LLE Lines/Tubes/Other Access: Clean, Dry and Intact Peripheral IV Nutrition: Taking PO's Result Diagrams: 07/03/16 15:43 07/03/16 15:43 Additional Lab and Data: Lab Results 06/28/16 06/28/16 Range/Units 13:30 13:30 WBC 10.7 (3.5-10.8) 10^3/ul RBC 3.18 L (4.0-5.4) 10^6/ul Hgb 10.1 L (12.0-16.0) g/dl Hct 31 L (35-47) % MCV 96 (80-97) fL MCH 32 H (27-31) pg MCHC 33 (31-36) g/dl RDW 15 (10.5-15) % Plt Count 154 (150-450) 10^3/ul MPV 8 (7.4-10.4) um3 Sodium 134 (133-145) mmol/L Potassium 4.0 (3.5-5.0) mmol/L Chloride 95 L (101-111) mmol/L Carbon Dioxide 30 (22-32) mmol/L Anion Gap 9 (2-11) mmol/L BUN 27 H (6-24) mg/dL Creatinine 0.93 (0.51-0.95) mg/dL Est GFR ( Amer) 76.4 (>60) Est GFR (Non-Af Amer) 59.4 (>60) BUN/Creatinine Ratio 29.0 H (8-20) Glucose 112 H (70-100) mg/dL Calcium 9.7 (8.6-10.3) mg/dL Assessment/Plan - Billing Assessment: 71 yo F w PMH of locally advanced lung cancer in surveillance now admitted with intractable pain and found to have a large left femur lesion. PRE-OP RISK EVALUATION: Patient seen and evaluated at the bedside. Her RCRI pre- op risk score is 0 placing her at a 0.4% risk of major cardiac event. She has a METS > 4 prior to pain in LE 7 weeks ago. Obtained and reviewed EKG: NSR with noted RBBB; no changes compared to prior EKG from 2014. There is no further recommended cardiac testing, patient is optimized for surgery. Patients biggest risk is respiratory with hx of COPD and lung cancer. May want to consider monitoring patient overnight post-operatively in ICCU on continuous monitoring, with post-op pulmonary toileting.
--- NOTE | 2016-07-03 22:06 | RAD ---
Indication: History of lung cancer. LEFT leg pain. Comparison: June 30, 2016 MRI pelvis, July 03, 2016 bone scan, June 28, 2016 CT. Technique: Pre and postcontrast MRI LEFT femur from the intratrochanteric region proximally through the femoral condyles distally. 15 mL ProHance administered IV. MoPalsa 1.5 Judit [id number] with GEM suite. Report: Ill-defined marrow edema at the intratrochanteric and neck and subtrochanteric region of the femur as well as 2 adjacent 1.5 cm maximum dimension T2 hyperintense lesions at the proximal diaphysis on the precontrast T2 series. The postcontrast series demonstrates diffuse enhancement of the femur from the proximal margin of the field of view through the junction of the proximal to mid diaphysis. No additional mid to distal lesions of the LEFT femur evident. The postcontrast series demonstrates periosteal edema surrounding the intratrochanteric through junction of the proximal to mid diaphyseal region of the femur as well as enhancement of the surrounding quadriceps and hip adductor musculature. The precontrast T2 weighted series demonstrate extensive interstitial edema throughout the LEFT hip adductor, quadriceps, and obturator internus and externus muscles and to a lesser extent the hamstring muscles. There is also edema within the LEFT sciatic nerve. No pathologic fracture evident. No loculated soft tissue plane hematoma evident. The RIGHT femur is included in the [id number] on the pre and postcontrast coronal series and is negative for focal osseous lesions. IMPRESSION: Osseous metastasis at the LEFT femur. Based on correlation with the pelvis MRI of June 30, 2016 and July 03, 2016 bone scan the tumor involvement extends from the femoral neck proximally through the junction of the proximal and mid diaphyses. No pathologic fracture evident. Associated periosteal reaction and surrounding infiltrative edema and enhancement within the skeletal musculature and sciatic nerve as described. The soft tissue edema and enhancement may reflect direct extension of tumor or may be reactive.
[2016-07-03] MEDS: Lidocaine Patch REMOVE* 1 NOTE MISC PATCH OFF SCH (23:03)
[2016-07-03] MEDS: Amitriptyline TAB* 25 MG PO PRN (23:26)
[2016-07-04] MEDS: Levothyroxine TAB* 125 MCG TAB PO SCH (06:00)
[2016-07-04] MEDS: fentaNYL Patch Check Q Shift 1 NOTE SCH ×2 (07:25→23:00)
[2016-07-04] MEDS: Cholecalciferol TAB* 1000 UNITS PO SCH (07:34)
[2016-07-04] MEDS: Gabapentin CAP(*) 300 MG PO SCH ×3 (07:34→22:32)
[2016-07-04] MEDS: Atorvastatin* 10 MG TAB PO SCH (07:34)
[2016-07-04] MEDS: Omeprazole CAP* 20 MG PO SCH (07:34)
[2016-07-04] MEDS: Cetirizine* 10 MG TAB PO SCH (07:34)
[2016-07-04] MEDS: Aspirin Low Dose CHEW TAB* 81 MG PO SCH (07:34)
[2016-07-04] MEDS: Docusate CAP* 100 MG PO SCH (07:35)
[2016-07-04] MEDS: Lidocaine PATCH 5%* 1 PATCH TRANSDERM SCH (07:35)
--- NOTE | 2016-07-04 07:37 | PN ---
Progress Note - Progress Note SOAP: Subjective: Pt. is alert, reports L hip pain continues, she would like to proceed with surgery. Objective: LLE - hip flexion to 90 degrees. distally nvi. Vital Signs: Temp Pulse Resp BP Pulse Ox 98.8 F 85 18 123/61 96 07/03/16 23:15 07/03/16 23:15 07/03/16 23:39 07/03/16 23:15 07/03/16 23:15 Laboratory Results - last 24 hr 07/03/16 07/03/16 07/03/16 11:58 15:43 15:43 WBC 6.2 RBC 2.69 L Hgb 8.8 L Hct 26 L MCV 97 MCH 33 H MCHC 34 RDW 14 Plt Count 141 L MPV 9 Neut % (Auto) 77.4 Lymph % (Auto) 8.7 L [place] % (Auto) 10.7 H Eos % (Auto) 2.9 Baso % (Auto) 0.3 Absolute Neuts (auto) 4.8 Absolute Lymphs (auto) 0.5 L Absolute Monos (auto) 0.7 Absolute Eos (auto) 0.2 Absolute Basos (auto) 0 Absolute Nucleated RBC 0 Nucleated RBC % 0 INR (Anticoag Therapy) 1.13 H APTT 30.0 Sodium Potassium Chloride Carbon Dioxide Anion Gap BUN Creatinine 0.81 Est GFR ( Amer) 89.6 Est GFR (Non-Af Amer) 69.7 BUN/Creatinine Ratio Glucose Calcium Total Bilirubin AST ALT Alkaline Phosphatase Total Protein Albumin Globulin Albumin/Globulin Ratio 07/03/16 15:43 WBC RBC Hgb Hct MCV MCH MCHC RDW Plt Count MPV Neut % (Auto) Lymph % (Auto) [place] % (Auto) Eos % (Auto) Baso % (Auto) Absolute Neuts (auto) Absolute Lymphs (auto) Absolute Monos (auto) Absolute Eos (auto) Absolute Basos (auto) Absolute Nucleated RBC Nucleated RBC % INR (Anticoag Therapy) APTT Sodium 134 Potassium 4.3 Chloride 92 L Carbon Dioxide 37 H Anion Gap 5 BUN 13 Creatinine 0.78 Est GFR ( Amer) 93.6 Est GFR (Non-Af Amer) 72.8 BUN/Creatinine Ratio 16.7 Glucose 126 H Calcium 8.7 Total Bilirubin 0.40 AST 43 H ALT 52 Alkaline Phosphatase 106 H Total Protein 6.4 Albumin 3.1 L Globulin 3.3 Albumin/Globulin Ratio 0.9 L Assessment: 71 yo F with metastatic lung cancer to L prox femur. Plan: protected wb lle npo after light breakfast plan prophylactic IM nail L femur today approx 4 pm
--- NOTE | 2016-07-04 09:45 | PN ---
Progress Note - Progress Note SOAP: Subjective: []Feeling better then on admission, lower back pain and left hip pain still limiting activity. Plan surgery today for trochanter fixation approx. [address] Ruffin. No BM in approx. 3 days, passing gas and denies feeling bloated. Pt. denies questions and concerns. Medications: Al Hydrox/Mg Hydrox/Simethicone (Maalox Plus*) 30 ml PO DAILY PRN PRN Reason: INDIGESTION Amitriptyline HCl (Elavil Tab*) 25 mg PO BEDTIME PRN PRN Reason: SLEEP Last Admin: 07/03/16 23:26 Dose: 25 mg Aspirin (Aspirin Low Dose Tab*) 81 mg PO DAILY [facility] Last Admin: 07/04/16 07:34 Dose: 81 mg Atorvastatin Calcium (Lipitor*) 10 mg PO DAILY [facility] PRN Reason: Protocol Last Admin: 07/04/16 07:34 Dose: 10 mg Cetirizine HCl (Zyrtec*) 10 mg PO DAILY [facility] Last Admin: 07/04/16 07:34 Dose: 10 mg Cholecalciferol (Vitamin D Tab*) 1,000 units PO DAILY [facility] Last Admin: 07/04/16 07:34 Dose: 1,000 units Docusate Sodium (Colace Cap*) 100 mg PO DAILY [facility] Last Admin: 07/04/16 07:35 Dose: 100 mg Fentanyl (Duragesic Patch 50 Mcg/Hr*) 50 mcg TRANSDERM Q72H [facility] Last Admin: 07/03/16 17:28 Dose: 50 mcg Gabapentin (Neurontin Cap(*)) 900 mg PO TID [facility] Last Admin: 07/04/16 07:34 Dose: 900 mg Hydromorphone HCl (Dilaudid Iv*) 1 mg IV SLOW PU Q4H PRN PRN Reason: PAIN - UNRELIEVED Last Admin: 07/03/16 19:53 Dose: 1 mg Sodium Chloride (Ns 0.9% 1000 Ml*) 1,000 mls @ 75 mls/hr IV PER RATE [facility] Last Admin: 07/03/16 02:04 Dose: 75 mls/hr Levothyroxine Sodium (Synthroid Tab*) 125 mcg PO 0600 [facility] Last Admin: 07/04/16 06:00 Dose: 125 mcg Lidocaine (Lidoderm 5% Patch*) 1 patch TRANSDERM DAILY [facility] Last Admin: 07/04/16 07:35 Dose: 1 patch Loperamide HCl (Imodium Cap*) 2 mg PO .SEE DIRECTIONS PRN PRN Reason: DIARRHEA Omeprazole (Prilosec Cap*) 20 mg PO DAILY [facility] PRN Reason: Protocol Last Admin: 07/04/16 07:34 Dose: 20 mg Ondansetron HCl (Zofran Inj*) 4 mg IV Q6H PRN PRN Reason: NAUSEA Oxycodone HCl (Roxycodone Tab*) 10 mg PO Q3H PRN PRN Reason: moderate pain Last Admin: 07/03/16 16:17 Dose: 10 mg Pharmacy Profile Note (Fentanyl Patch Check Q Shift) 1 note N/A 0700,1900 [facility] Last Admin: 07/04/16 07:25 Dose: 1 note Pharmacy Profile Note (Lidocaine Patch Remove*) 1 note PATCH OFF 2100 [facility] Last Admin: 07/03/16 23:03 Dose: Not Given Polyethylene Glycol/Electrolytes (Miralax*) 17 gm PO DAILY [facility] Senna (Senokot Tab*) 1 tab PO DAILY PRN PRN Reason: constipation/no BM Objective: [] Vital Signs Temp Pulse Resp BP Pulse Ox 98.9 F 86 20 100/57 94 07/04/16 07:49 07/04/16 07:49 07/04/16 08:33 07/04/16 07:49 07/04/16 07:49 A&Ox3, EOMI, QUESADA, neuro grossly non-focal, good strength bilat. UE and LE HRR, S1S2 LS clear, resp. even and non-labored +BS, abd. soft and non-tender +PP=bilat., no edema Laboratory Results - last 24 hr 07/03/16 07/03/16 07/03/16 11:58 15:43 15:43 WBC 6.2 RBC 2.69 L Hgb 8.8 L Hct 26 L MCV 97 MCH 33 H MCHC 34 RDW 14 Plt Count 141 L MPV 9 Neut % (Auto) 77.4 Lymph % (Auto) 8.7 L [place] % (Auto) 10.7 H Eos % (Auto) 2.9 Baso % (Auto) 0.3 Absolute Neuts (auto) 4.8 Absolute Lymphs (auto) 0.5 L Absolute Monos (auto) 0.7 Absolute Eos (auto) 0.2 Absolute Basos (auto) 0 Absolute Nucleated RBC 0 Nucleated RBC % 0 INR (Anticoag Therapy) 1.13 H APTT 30.0 Sodium Potassium Chloride Carbon Dioxide Anion Gap BUN Creatinine 0.81 Est GFR ( Amer) 89.6 Est GFR (Non-Af Amer) 69.7 BUN/Creatinine Ratio Glucose Calcium Total Bilirubin AST ALT Alkaline Phosphatase Total Protein Albumin Globulin Albumin/Globulin Ratio Blood Type Antibody Screen Crossmatch 07/03/16 07/03/16 15:43 15:43 WBC RBC Hgb Hct MCV MCH MCHC RDW Plt Count MPV Neut % (Auto) Lymph % (Auto) [place] % (Auto) Eos % (Auto) Baso % (Auto) Absolute Neuts (auto) Absolute Lymphs (auto) Absolute Monos (auto) Absolute Eos (auto) Absolute Basos (auto) Absolute Nucleated RBC Nucleated RBC % INR (Anticoag Therapy) APTT Sodium 134 Potassium 4.3 Chloride 92 L Carbon Dioxide 37 H Anion Gap 5 BUN 13 Creatinine 0.78 Est GFR ( Amer) 93.6 Est GFR (Non-Af Amer) 72.8 BUN/Creatinine Ratio 16.7 Glucose 126 H Calcium 8.7 Total Bilirubin 0.40 AST 43 H ALT 52 Alkaline Phosphatase 106 H Total Protein 6.4 Albumin 3.1 L Globulin 3.3 Albumin/Globulin Ratio 0.9 L Blood Type A Positive Antibody Screen Negative Crossmatch See Detail Assessment: []71 yo f with history of locally advanced NSCLC admitted with uncontrolled pain felt to be related to newly discovered lytic lesion of proximal left femur with plan for fixation today with Dr. Ruffin. Overall pain better controlled with initiation of long acting narcotics. Plan: []1. Lytic lesion: pending surgery, will send for path (including PD1 per Dr. Hath[facility]), hold Lovenox today 2. NSCLC: presumed now metastatic and will need RT to hip and zometa, further systemic therapy based on above path 3. Pain: continue current regimen, no change for now, expect some increase in pain post surgery, but then improvement. May be good candidate for rehab 4. Anemia: follow labs tomorrow AM /p surgery
[2016-07-04] MEDS ORDERED: Buffered Lidocaine 1% SYRIN* 3 ML/SYR SYRINGE INTRADERM ONE (15:10)
[2016-07-04] MEDS ORDERED: Famotidine IV* 10 MG/ML 2 ML (20 mg) IV ONE (15:10)
[2016-07-04] MEDS ORDERED: Morphine INJ* 2 MG/ML 1 ML SYRINGE IV PRN (15:17)
[2016-07-04] MEDS ORDERED: HYDROcodone/ACETAMIN 5-325 MG* 1 TAB PO PRN (15:17)
[2016-07-04] MEDS ORDERED: fentaNYL* 50 MCG/ML 2 ML VIAL (100 MCG VIAL) ONE ×2 (15:17→20:08)
[2016-07-04] MEDS ORDERED: PROCHLORPERAZINE INJ 5 MG/ML 2 ML VIAL IV PRN (15:17)
[2016-07-04] MEDS ORDERED: KETAMINE HCL* 50 MG/ML 10 ML VIAL ONE (15:17)
[2016-07-04] MEDS ORDERED: Midazolam* 1 MG/ML 5 ML VIAL (5 MG) ONE (15:17)
[2016-07-04] MEDS ORDERED: Atracurium* 10 MG/ML 10 ML VIAL ONE (15:59)
[2016-07-04] MEDS ORDERED: Famotidine IV* 10 MG/ML 2 ML (20 mg) ONE (16:05)
[2016-07-04] MEDS ORDERED: ceFAZolin 2 GM PREMIX(*) 2 GM/50 ML BAG IVPB ONE (16:13)
[2016-07-04] MEDS ORDERED: Phenylephrine INJ* 10 MG/ML 1 ML VIAL (10 MG) ONE (17:43)
[2016-07-04] MEDS ORDERED: Lidocaine 2% PF* 5 ML VIAL ONE (18:02)
[2016-07-04] MEDS ORDERED: Glycopyrrolate IV* 0.2 MG/ML 1 ML VIAL ONE (18:02)
[2016-07-04] MEDS ORDERED: Dexamethasone IV* 4 MG/ML 1 ML (4 MG) ONE (18:02)
[2016-07-04] MEDS ORDERED: Neostigmine Methylsulfate* 2 MG/2 ML SYRINGE ONE (18:02)
[2016-07-04] MEDS ORDERED: Propofol* 10 MG/ML 20 ML BTL IV PUSH ONE (18:02)
[2016-07-04] MEDS ORDERED: Ondansetron INJ* 2 MG/ML VIAL ONE (18:02)
[2016-07-04 18:22] LABS: Hematocrit 25 % (35-47); Hemoglobin 8.2 g/dl (12.0-16.0)
[2016-07-04] MEDS ORDERED: Morphine INJ* 10 MG/ML 1 ML SYRINGE ONE (18:53)
[2016-07-04] MEDS ORDERED: Bupivacaine 0.5% SDV PF* 30 ML VIAL ONE (18:56)
[2016-07-04 20:12] LABS: Hematocrit 28 % (35-47); Hemoglobin 9.3 g/dl (12.0-16.0)
[2016-07-04] MEDS: fentaNYL* 50 MCG/ML 2 ML VIAL (100 MCG VIAL) IV PRN ×4 (20:12→21:53)
--- NOTE | 2016-07-04 21:26 | RAD ---
CPT II Codes: 6045F INDICATION: Pathologic fracture of the left hip and femur TECHNIQUE: Intraoperative fluoroscopy was provided during left hip and femur ORIF. FINDINGS: 5 spot films depict anatomic placement of a left hip gamma nail with a lenora extending down the left femoral shaft. Limited intraoperative images depict anatomic alignment of the orthopedic hardware.. Fluoroscopy time: 77.5 seconds IMPRESSION: As above.
[2016-07-04] MEDS: Lidocaine Patch REMOVE* 1 NOTE MISC PATCH OFF SCH (22:28)
[2016-07-04] MEDS ORDERED: Gabapentin CAP(*) 300 MG ONE (22:32)
[2016-07-04] MEDS ORDERED: oxyCODONE TAB* 5 MG TAB ONE (22:35)
[2016-07-04] MEDS: oxyCODONE TAB* 5 MG TAB PO PRN (22:36)
[2016-07-05] MEDS: HYDROmorphone* 1 MG/ML 1 ML SYR IV SLOW PU PRN ×5 (00:21→22:55)
[2016-07-05] MEDS: Amitriptyline TAB* 25 MG PO PRN (01:25)
[2016-07-05] MEDS: oxyCODONE TAB* 5 MG TAB PO PRN ×4 (01:45→15:55)
[2016-07-05] MEDS: ceFAZolin 1 GM in Dextrose (*) 1 GM/50 ML BAG IVPB SCH ×3 (01:54→17:18)
[2016-07-05] MEDS: Levothyroxine TAB* 125 MCG TAB PO SCH (05:35)
[2016-07-05 06:31] LABS: Hematocrit 25 % (35-47); Hemoglobin 8.5 g/dl (12.0-16.0); Mean Corpuscular HGB Conc 34 g/dl (31-36); Mean Corpuscular Hemoglobin 32 pg (27-31); Mean Corpuscular Volume 96 fL (80-97); Mean Platelet Volume 8 um3 (7.4-10.4); Red Blood Count 2.61 10^6/ul (4.0-5.4); Red Cell Distribution Width 14 % (10.5-15); White Blood Count 6.3 10^3/ul (3.5-10.8)
[2016-07-05 07:02] LABS: Albumin 2.9 g/dL (3.2-5.2); BUN/Creatinine Ratio 20.8 (8-20); Calcium 8.8 mg/dL (8.6-10.3); EGFR African American 102.7 (>60); EGFR Non-African American 79.9 (>60); Globulin 3.5 g/dL (2-4); Potassium 4.3 mmol/L (3.5-5.0); Total Bilirubin 0.4 mg/dL (0.2-1.0); Total Protein 6.4 g/dL (6.4-8.9)
[2016-07-05] MEDS: fentaNYL Patch Check Q Shift 1 NOTE SCH ×2 (07:02→18:53)
--- NOTE | 2016-07-05 07:36 | PN ---
Progress Note - Progress Note SOAP: Subjective: Pt. reports pain is controlled. Objective: LLE - dressings c/d/i. thigh swollen but soft. distally nvi. Vital Signs: Temp Pulse Resp BP Pulse Ox 98.6 F 76 18 104/38 94 07/05/16 04:50 07/05/16 04:50 07/05/16 06:27 07/05/16 04:50 07/05/16 04:50 Laboratory Results - last 24 hr 07/03/16 07/04/16 07/04/16 15:43 18:11 19:47 WBC RBC Hgb 8.2 L 9.3 L Hct 25 L 28 L MCV MCH MCHC RDW Plt Count MPV Neut % (Auto) Lymph % (Auto) [place] % (Auto) Eos % (Auto) Baso % (Auto) Absolute Neuts (auto) Absolute Lymphs (auto) Absolute Monos (auto) Absolute Eos (auto) Absolute Basos (auto) Absolute Nucleated RBC Nucleated RBC % Sodium Potassium Chloride Carbon Dioxide Anion Gap BUN Creatinine Est GFR ( Amer) Est GFR (Non-Af Amer) BUN/Creatinine Ratio Glucose Calcium Total Bilirubin AST ALT Alkaline Phosphatase Total Protein Albumin Globulin Albumin/Globulin Ratio Blood Type A Positive Antibody Screen Negative Crossmatch See Detail 07/05/16 07/05/16 05:57 05:57 WBC 6.3 RBC 2.61 L Hgb 8.5 L Hct 25 L MCV 96 MCH 32 H MCHC 34 RDW 14 Plt Count 140 L MPV 8 Neut % (Auto) 88.4 H Lymph % (Auto) 5.6 L [place] % (Auto) 5.8 Eos % (Auto) 0.1 Baso % (Auto) 0.1 Absolute Neuts (auto) 5.6 Absolute Lymphs (auto) 0.4 L Absolute Monos (auto) 0.4 Absolute Eos (auto) 0 Absolute Basos (auto) 0 Absolute Nucleated RBC 0 Nucleated RBC % 0 Sodium 131 L Potassium 4.3 Chloride 90 L Carbon Dioxide 35 H Anion Gap 6 BUN 15 Creatinine 0.72 Est GFR ( Amer) 102.7 Est GFR (Non-Af Amer) 79.9 BUN/Creatinine Ratio 20.8 H Glucose 132 H Calcium 8.8 Total Bilirubin 0.40 AST 32 ALT 50 Alkaline Phosphatase 98 Total Protein 6.4 Albumin 2.9 L Globulin 3.5 Albumin/Globulin Ratio 0.8 L Blood Type Antibody Screen Crossmatch Assessment: 71 yo F pod 1 s/p prophylactic IM nail L femur with metastatic tumor and intractable pain. Plan: wbat lle pt/ot prn analgesia recommend pmru consult
[2016-07-05] MEDS: Aspirin Low Dose CHEW TAB* 81 MG PO SCH (08:14)
[2016-07-05] MEDS: Cetirizine* 10 MG TAB PO SCH (08:14)
[2016-07-05] MEDS: Atorvastatin* 10 MG TAB PO SCH (08:14)
[2016-07-05] MEDS: Omeprazole CAP* 20 MG PO SCH (08:14)
[2016-07-05] MEDS: Docusate CAP* 100 MG PO SCH (08:14)
[2016-07-05] MEDS: Gabapentin CAP(*) 300 MG PO SCH ×3 (08:14→21:00)
[2016-07-05] MEDS: Cholecalciferol TAB* 1000 UNITS PO SCH (08:15)
[2016-07-05] MEDS: Polyethylene Glycol 3350* 17 GM PACKET PO SCH (08:15)
[2016-07-05] MEDS: Enoxaparin(*) 30 MG/0.3 ML SYR SUBCUT SCH (08:18)
[2016-07-05] MEDS: Lidocaine PATCH 5%* 1 PATCH TRANSDERM SCH (09:31)
--- NOTE | 2016-07-05 09:40 | PN ---
Progress Note - Progress Note SOAP: Subjective: []Post op Day 1: left hip fixation Feeling OK, but pain in left hip near incision site not super well controlled at this exact time. "The oxycodone doesn't do anything." Has a cough and some pain in left lower quad. Still no BM. Woo in and worried about when it comes out getting to bathroom. Medications: Al Hydrox/Mg Hydrox/Simethicone (Maalox Plus*) 30 ml PO DAILY PRN PRN Reason: INDIGESTION Amitriptyline HCl (Elavil Tab*) 25 mg PO BEDTIME PRN PRN Reason: SLEEP Last Admin: 07/05/16 01:25 Dose: 25 mg Aspirin (Aspirin Low Dose Tab*) 81 mg PO DAILY [facility] Last Admin: 07/05/16 08:14 Dose: 81 mg Atorvastatin Calcium (Lipitor*) 10 mg PO DAILY [facility] PRN Reason: Protocol Last Admin: 07/05/16 08:14 Dose: 10 mg Cetirizine HCl (Zyrtec*) 10 mg PO DAILY [facility] Last Admin: 07/05/16 08:14 Dose: 10 mg Cholecalciferol (Vitamin D Tab*) 1,000 units PO DAILY [facility] Last Admin: 07/05/16 08:15 Dose: 1,000 units Docusate Sodium (Colace Cap*) 100 mg PO DAILY [facility] Last Admin: 07/05/16 08:14 Dose: 100 mg Enoxaparin Sodium (Lovenox(*)) 30 mg SUBCUT Q24H [facility] Last Admin: 07/05/16 08:18 Dose: 30 mg Fentanyl (Duragesic Patch 50 Mcg/Hr*) 50 mcg TRANSDERM Q72H [facility] Last Admin: 07/03/16 17:28 Dose: 50 mcg Gabapentin (Neurontin Cap(*)) 900 mg PO TID [facility] Last Admin: 07/05/16 08:14 Dose: 900 mg Hydromorphone HCl (Dilaudid Iv*) 1 mg IV SLOW PU Q4H PRN PRN Reason: PAIN - UNRELIEVED Last Admin: 07/05/16 05:27 Dose: 1 mg Lactated Ringer's (Lactated Ringers 1000 Ml Bag*) 1,000 mls @ 125 mls/hr IV PER RATE [facility] Last Admin: 07/05/16 09:36 Dose: 125 mls/hr Cefazolin Sodium/Dextrose (Kefzol 1 Gm In Dextrose Duplex (*)) 1 gm in 50 mls @ 200 mls/hr IVPB Q8H [facility] Stop: 07/05/16 17:44 Last Admin: 07/05/16 09:29 Dose: 200 mls/hr Levothyroxine Sodium (Synthroid Tab*) 125 mcg PO 0600 [facility] Last Admin: 07/05/16 05:35 Dose: 125 mcg Lidocaine (Lidoderm 5% Patch*) 1 patch TRANSDERM DAILY [facility] Last Admin: 07/05/16 09:31 Dose: 1 patch Loperamide HCl (Imodium Cap*) 2 mg PO .SEE DIRECTIONS PRN PRN Reason: DIARRHEA Omeprazole (Prilosec Cap*) 20 mg PO DAILY [facility] PRN Reason: Protocol Last Admin: 07/05/16 08:14 Dose: 20 mg Ondansetron HCl (Zofran Inj*) 4 mg IV Q6H PRN PRN Reason: NAUSEA Oxycodone HCl (Roxycodone Tab*) 10 mg PO Q3H PRN PRN Reason: moderate pain Last Admin: 07/05/16 08:15 Dose: 10 mg Pharmacy Profile Note (Fentanyl Patch Check Q Shift) 1 note N/A 0700,1900 [facility] Last Admin: 07/05/16 07:02 Dose: 1 note Pharmacy Profile Note (Lidocaine Patch Remove*) 1 note PATCH OFF 2100 [facility] Last Admin: 07/04/16 22:28 Dose: 1 note Polyethylene Glycol/Electrolytes (Miralax*) 17 gm PO DAILY [facility] Last Admin: 07/05/16 08:15 Dose: 17 gm Senna (Senokot Tab*) 1 tab PO DAILY PRN PRN Reason: constipation/no BM Objective: [] Vital Signs Temp Pulse Resp BP Pulse Ox 97.4 F 75 16 119/62 96 07/05/16 07:39 07/05/16 07:39 07/05/16 08:15 07/05/16 07:39 07/05/16 07:39 A&Ox3, EOMI, QUESADA, neuro grossly non-focal HRR, S1S2 LS clear, harsh wet cough with deep breaths +BS, abd. soft, non-tender +PP=bilat., no edema noted Left hip incisions benign, dressing CDI Laboratory Results - last 24 hr 07/05/16 07/05/16 05:57 05:57 WBC 6.3 RBC 2.61 L Hgb 8.5 L Hct 25 L MCV 96 MCH 32 H MCHC 34 RDW 14 Plt Count 140 L MPV 8 Neut % (Auto) 88.4 H Lymph % (Auto) 5.6 L [place] % (Auto) 5.8 Eos % (Auto) 0.1 Baso % (Auto) 0.1 Absolute Neuts (auto) 5.6 Absolute Lymphs (auto) 0.4 L Absolute Monos (auto) 0.4 Absolute Eos (auto) 0 Absolute Basos (auto) 0 Absolute Nucleated RBC 0 Nucleated RBC % 0 Sodium 131 L Potassium 4.3 Chloride 90 L Carbon Dioxide 35 H Anion Gap 6 BUN 15 Creatinine 0.72 Est GFR ( Amer) 102.7 Est GFR (Non-Af Amer) 79.9 BUN/Creatinine Ratio 20.8 H Glucose 132 H Calcium 8.8 Total Bilirubin 0.40 AST 32 ALT 50 Alkaline Phosphatase 98 Total Protein 6.4 Albumin 2.9 L Globulin 3.5 Albumin/Globulin Ratio 0.8 L Blood Type Antibody Screen Crossmatch Assessment: []71 yo f w NSCLC now metastatic to bones (conformational path pending) post op d1 left hip fixation d/t intractable pain from proximal femoral lesion. Plan: []1. Wt. bearing per ortho 2. PMRU consult 3. SCDs, inspirometer 4. Recheck CBC in AM (stable post op with minimal blood loss, but @ 71 y.o. may benefit from 1 unit if still <9) 5. No change in pain meds for now, though will monitor closely
--- NOTE | 2016-07-05 17:19 | OP ---
DATE OF OPERATION: 07/04/16 - ROOM #335 DATE OF : 45 SURGEON: Rose Ruffin MD TELE RN: Dayana Reina LPN ANESTHESIOLOGIST: Dr. Dockery. ANESTHESIA: General. PRE-OP DIAGNOSIS: Impending pathologic fracture of the left proximal femur. POST-OP DIAGNOSIS: Impending pathologic fracture of the left proximal femur. OPERATIVE PROCEDURE: Prophylactic placement of a left cephalomedullary device in the femur for impending pathologic fracture from lung cancer metastasis. INDICATIONS: Ms. Laura is a 71-year-old female with metastatic lung carcinoma. She was admitted to the hospital last week for inability to ambulate on the left lower extremity, hip pain, back pain, and uncontrolled pain. MRI of the left hip and femur showed metastatic disease involving the proximal femur with cortical involvement. Due to the patient's intractable pain and inability to ambulate, she elected prophylactic IM nailing of the left femur impending pathologic fracture. Informed consent was obtained from the patient. She understood the risks of the procedure included but were not limited to bleeding, infection, damage to nearby structures, continued pain, need for further surgery, intraoperative fracture, nerve palsy or damage, fat embolism, pulmonary embolism, respiratory distress, stroke, heart attack, blood clot, and . She wished to proceed. This plan was arrived at in working with the medical and oncology team. Plan for radiation therapy and further IV meds after the patient has healed from the surgery. HARDWARE USED: This is a gamma nail from [employer] 11 x 400 x 125 with a 125 neck angle long gamma nail with a 105-mm proximal lag screw and a 52.5 distal locking screw. COMPLICATIONS: None. ESTIMATED BLOOD LOSS: 350 cc. SPECIMEN: Multiple femoral reamings and femoral canal specimen sent to Pathology for further evaluation. INTRAOPERATIVE FINDINGS: Intraoperatively, there was satisfactory bone quality. What appeared to tumor cells were collected from the femoral reaming and sent to Pathology. DESCRIPTION OF PROCEDURE: Ms. Laura is identified in the preanesthesia unit. Her left lower extremity was marked as the correct operative side. Informed consent was signed and placed in the chart. The patient was taken to the operating room and placed under general anesthesia without difficulty. A Woo catheter was placed. The patient was placed on the fracture table. The left lower extremity was placed in the traction boot, although no traction was applied. The right lower extremity was placed in the lithotomy position with adequate padding. The left lower extremity was prepped and draped in the usual sterile fashion. Preop time- out was made to correctly identify the patient's side and site. A 4-cm incision was made proximal to the tip of the greater trochanter. Electrocautery was used to dissect down to the tip of the greater trochanter. Using AP and lateral C-arm views, tip of the greater trochanter starting point was chosen and the awl was used to find a starting point. Satisfactory starting point was chosen with the awl using AP and lateral C-arm views. A guidewire was placed through the cannulated portion of the awl and placed down the femoral canal. Next, there was very minimal reaming performed. One 13-mm reamer was placed on the length of the femur one time and specimen was collected. Proximally, the femur was reamed to 15.5. The guidewire was measured at 400 mm. A 400 x 11 x 125 degree long gamma nail was chosen. This was placed over the guidewire and advanced to satisfactory amount. AP and lateral C-arm views showed proper placement of the long gamma nail. The guidewire was removed. Using the lateral gamma nail guide, the 2-cm incision was made and the guide for the proximal lag screw was advanced down to bone. A guidewire was placed in the central position across the femoral neck into the head. This was measured at 105 mm in length. Drilling was performed over the guidewire. A 105-mm proximal lag screw was then placed over the guidewire. AP and lateral C- arm views confirmed satisfactory position of the lag screw. The guidewire was carefully removed. A set screw was placed proximally. The lateral gamma nail guide was removed. Attention was turned to placement of the single distal locking screw. A 2-cm incision was made at the appropriate lateral distal femoral place. A perfect [place] technique was used with a drill to place a distal locking screw which was 52.5 mm in length. At this point, all the incisions were carefully irrigated with sterile saline. The specimen collected was sent to Pathology for further evaluation. The AP and lateral C-arm views confirmed satisfactory placement of the long gamma nail and no additional findings were noted. The incisions were closed in a layered fashion using #1 Vicryls on lateral fascial layer first. The rest of the incisions were closed in a layered fashion using 0 and 2-0 Vicryls. The skin was closed using running 3-0 nylon suture. Sterile Xeroform, 4x4s, and paper tape were used to cover the incisions. The patient's anesthesia was reversed without difficulty. She was taken to the PACU in stable condition. Intended weightbearing will be weightbearing as tolerated with aggressive rehab. Intended DVT prophylaxis will be Lovenox or the medical team's choice. [id number]/[facility] #: [id number] MICHAELA
[2016-07-05] MEDS: Senna TAB PO PRN (18:03)
[2016-07-05] MEDS: Lidocaine Patch REMOVE* 1 NOTE MISC PATCH OFF SCH ×2 (18:52→20:55)
[2016-07-06] MEDS: oxyCODONE TAB* 5 MG TAB PO PRN ×6 (01:34→21:52)
[2016-07-06] MEDS: Levothyroxine TAB* 125 MCG TAB PO SCH (05:07)
[2016-07-06] MEDS: HYDROmorphone* 1 MG/ML 1 ML SYR IV SLOW PU PRN ×5 (05:11→23:01)
[2016-07-06] MEDS: fentaNYL Patch Check Q Shift 1 NOTE SCH ×2 (06:41→19:05)
[2016-07-06 06:43] LABS: Hematocrit 25 % (35-47); Hemoglobin 8.4 g/dl (12.0-16.0); Mean Corpuscular HGB Conc 34 g/dl (31-36); Mean Corpuscular Hemoglobin 33 pg (27-31); Mean Corpuscular Volume 96 fL (80-97); Mean Platelet Volume 8 um3 (7.4-10.4); Red Blood Count 2.57 10^6/ul (4.0-5.4); Red Cell Distribution Width 15 % (10.5-15); White Blood Count 5.8 10^3/ul (3.5-10.8)
[2016-07-06 07:05] LABS: BUN/Creatinine Ratio 18.9 (8-20); Calcium 8.7 mg/dL (8.6-10.3); EGFR African American 99.5 (>60); EGFR Non-African American 77.4 (>60)
--- NOTE | 2016-07-06 07:55 | PN ---
Progress Note - Progress Note SOAP: Subjective: Pt. reports pain LLE, states she is "not doing well". Objective: LLE - dressings changed, incisions c/d/i. min swelling. distally nvi. Vital Signs: Temp Pulse Resp BP Pulse Ox 99.5 F 88 17 126/63 94 07/06/16 07:36 07/06/16 07:36 07/06/16 07:36 07/06/16 07:36 07/06/16 07:36 Laboratory Results - last 24 hr 07/06/16 07/06/16 06:19 06:19 WBC 5.8 RBC 2.57 L Hgb 8.4 L Hct 25 L MCV 96 MCH 33 H MCHC 34 RDW 15 Plt Count 139 L MPV 8 Neut % (Auto) 77.5 Lymph % (Auto) 10.7 L [place] % (Auto) 9.0 Eos % (Auto) 2.6 Baso % (Auto) 0.2 Absolute Neuts (auto) 4.5 Absolute Lymphs (auto) 0.6 L Absolute Monos (auto) 0.5 Absolute Eos (auto) 0.1 Absolute Basos (auto) 0 Absolute Nucleated RBC 0 Nucleated RBC % 0 Sodium 129 L Potassium 4.0 Chloride 87 L Carbon Dioxide 37 H Anion Gap 5 BUN 14 Creatinine 0.74 Est GFR ( Amer) 99.5 Est GFR (Non-Af Amer) 77.4 BUN/Creatinine Ratio 18.9 Glucose 106 H Calcium 8.7 Assessment: 71 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 Ruffin 2 weeks, call [phone] for appointment
[2016-07-06] MEDS: Gabapentin CAP(*) 300 MG PO SCH ×3 (08:48→21:52)
[2016-07-06] MEDS: Omeprazole CAP* 20 MG PO SCH (08:49)
[2016-07-06] MEDS: Cetirizine* 10 MG TAB PO SCH (08:49)
[2016-07-06] MEDS: Cholecalciferol TAB* 1000 UNITS PO SCH (08:49)
[2016-07-06] MEDS: Atorvastatin* 10 MG TAB PO SCH (08:49)
[2016-07-06] MEDS: Enoxaparin(*) 30 MG/0.3 ML SYR SUBCUT SCH (08:49)
[2016-07-06] MEDS: Docusate CAP* 100 MG PO SCH (08:49)
[2016-07-06] MEDS: Aspirin Low Dose CHEW TAB* 81 MG PO SCH (08:49)
[2016-07-06] MEDS: Polyethylene Glycol 3350* 17 GM PACKET PO SCH (08:49)
[2016-07-06] MEDS: Lidocaine PATCH 5%* 1 PATCH TRANSDERM SCH (08:51)
[2016-07-06] MEDS: fentaNYL PATCH 50 MCG/HR TRANSDERM SCH (18:12)
[2016-07-06] MEDS: Senna TAB PO PRN (21:52)
[2016-07-06] MEDS: Lidocaine Patch REMOVE* 1 NOTE MISC PATCH OFF SCH (21:53)
[2016-07-07] MEDS: oxyCODONE TAB* 5 MG TAB PO PRN ×2 (05:00→07:58)
[2016-07-07] MEDS: HYDROmorphone* 1 MG/ML 1 ML SYR IV SLOW PU PRN (05:00)
[2016-07-07] MEDS: Levothyroxine TAB* 125 MCG TAB PO SCH (05:01)
[2016-07-07] MEDS: fentaNYL Patch Check Q Shift 1 NOTE SCH ×2 (06:43→19:00)
[2016-07-07] MEDS: Polyethylene Glycol 3350* 17 GM PACKET PO SCH (07:56)
[2016-07-07] MEDS: Docusate CAP* 100 MG PO SCH (07:57)
[2016-07-07] MEDS: Cetirizine* 10 MG TAB PO SCH (07:57)
[2016-07-07] MEDS: Aspirin Low Dose CHEW TAB* 81 MG PO SCH (07:57)
[2016-07-07] MEDS: Cholecalciferol TAB* 1000 UNITS PO SCH (07:57)
[2016-07-07] MEDS: Atorvastatin* 10 MG TAB PO SCH (07:57)
[2016-07-07] MEDS: Gabapentin CAP(*) 300 MG PO SCH ×3 (07:58→20:28)
[2016-07-07] MEDS: Omeprazole CAP* 20 MG PO SCH (07:59)
[2016-07-07] MEDS: Enoxaparin(*) 30 MG/0.3 ML SYR SUBCUT SCH (07:59)
[2016-07-07] MEDS: Lidocaine PATCH 5%* 1 PATCH TRANSDERM SCH (08:09)
--- NOTE | 2016-07-07 08:54 | PN ---
Progress Note - Progress Note SOAP: Subjective: [] patient resting comfortably with no complaints, hasn't been OOB yet. Objective: Vital Signs Temp Pulse Resp BP Pulse Ox 98.5 F 85 16 113/60 94 07/07/16 03:54 07/07/16 07:38 07/07/16 07:58 07/07/16 07:38 07/07/16 07:38 Laboratory Last Values WBC 5.8 10^3/ul (3.5-10.8) 07/06/16 06:19 RBC 2.57 10^6/ul (4.0-5.4) L 07/06/16 06:19 Hgb 8.4 g/dl (12.0-16.0) L 07/06/16 06:19 Hct 25 % (35-47) L 07/06/16 06:19 MCV 96 fL (80-97) 07/06/16 06:19 MCH 33 pg (27-31) H 07/06/16 06:19 MCHC 34 g/dl (31-36) 07/06/16 06:19 RDW 15 % (10.5-15) 07/06/16 06:19 Plt Count 139 10^3/ul (150-450) L 07/06/16 06:19 MPV 8 um3 (7.4-10.4) 07/06/16 06:19 Neut % (Auto) 77.5 % (38-83) 07/06/16 06:19 Lymph % (Auto) 10.7 % (25-47) L 07/06/16 06:19 [place] % (Auto) 9.0 % (1-9) 07/06/16 06:19 Eos % (Auto) 2.6 % (0-6) 07/06/16 06:19 Baso % (Auto) 0.2 % (0-2) 07/06/16 06:19 Absolute Neuts (auto) 4.5 10^3/ul (1.5-7.7) 07/06/16 06:19 Absolute Lymphs (auto) 0.6 10^3/ul (1.0-4.8) L 07/06/16 06:19 Absolute Monos (auto) 0.5 10^3/ul (0-0.8) 07/06/16 06:19 Absolute Eos (auto) 0.1 10^3/ul (0-0.6) 07/06/16 06:19 Absolute Basos (auto) 0 10^3/ul (0-0.2) 07/06/16 06:19 Absolute Nucleated RBC 0 10^3/ul 07/06/16 06:19 Nucleated RBC % 0 07/06/16 06:19 INR (Anticoag Therapy) 1.13 (0.89-1.11) H 07/03/16 15:43 APTT 30.0 seconds (26.0-36.3) 07/03/16 15:43 Sodium 129 mmol/L (133-145) L 07/06/16 06:19 Potassium 4.0 mmol/L (3.5-5.0) 07/06/16 06:19 Chloride 87 mmol/L (101-111) L 07/06/16 06:19 Carbon Dioxide 37 mmol/L (22-32) H 07/06/16 06:19 Anion Gap 5 mmol/L (2-11) 07/06/16 06:19 BUN 14 mg/dL (6-24) 07/06/16 06:19 Creatinine 0.74 mg/dL (0.51-0.95) 07/06/16 06:19 Est GFR ( Amer) 99.5 (>60) 07/06/16 06:19 Est GFR (Non-Af Amer) 77.4 (>60) 07/06/16 06:19 BUN/Creatinine Ratio 18.9 (8-20) 07/06/16 06:19 Glucose 106 mg/dL (70-100) H 07/06/16 06:19 Calcium 8.7 mg/dL (8.6-10.3) 07/06/16 06:19 Total Bilirubin 0.40 mg/dL (0.2-1.0) 07/05/16 05:57 AST 32 U/L (13-39) 07/05/16 05:57 ALT 50 U/L (7-52) 07/05/16 05:57 Alkaline Phosphatase 98 U/L (34-104) 07/05/16 05:57 Total Protein 6.4 g/dL (6.4-8.9) 07/05/16 05:57 Albumin 2.9 g/dL (3.2-5.2) L 07/05/16 05:57 Globulin 3.5 g/dL (2-4) 07/05/16 05:57 Albumin/Globulin Ratio 0.8 (1-3) L 07/05/16 05:57 Amylase 53 U/L (29-103) 06/29/16 05:46 Lipase 22 U/L (11.0-82.0) 06/29/16 05:46 Urine Color Yellow 06/29/16 07:08 Urine Appearance Cloudy 06/29/16 07:08 Urine pH 5.0 (5-9) 06/29/16 07:08 Ur Specific [place] 1.033 (1.010-1.030) H 06/29/16 07:08 Urine Protein Negative (Negative) 06/29/16 07:08 Urine Ketones Negative (Negative) 06/29/16 07:08 Urine Blood Negative (Negative) 06/29/16 07:08 Urine Nitrate Negative (Negative) 06/29/16 07:08 Urine Bilirubin Negative (Negative) 06/29/16 07:08 Urine Urobilinogen Negative (Negative) 06/29/16 07:08 Ur Leukocyte Esterase 1+ (Negative) H 06/29/16 07:08 Urine WBC (Auto) 2+(11-20/hpf) (Absent) H 06/29/16 07:08 Urine RBC (Auto) Trace(0-2/hpf) (Absent) 06/29/16 07:08 Ur Squamous Epith Cells Present (Absent) H 06/29/16 07:08 Ur Transition Epith Cell Present (Absent) H 06/29/16 07:08 Urine Bacteria Absent (Absent) 06/29/16 07:08 Hyaline Casts Present (Absent) H 06/29/16 07:08 Granular Casts Present (Absent) H 06/29/16 07:08 Urine Glucose Negative (Negative) 06/29/16 07:08 Blood Type A Positive 07/03/16 15:43 Antibody Screen Negative 07/03/16 15:43 Crossmatch See Detail 07/03/16 15:43 incision: c/d/i PE: intact B/L LE strengths, intact sensation. 2+ DP pulses Assessment: s/p IM nail left femur Plan: 1) Continue PT/OT- WBAT 2) Continue Lovenox for DVT prophylaxis 3) Medicine following 4) PMRU pending 5) OK from Ortho standpoint for D/C
[2016-07-07] MEDS ORDERED: HYDROmorphone* 1 MG/ML 1 ML SYR IV SLOW PU PRN (09:49)
--- NOTE | 2016-07-07 09:57 | PN ---
Progress Note - Progress Note SOAP: Subjective: []OOB to chair this AM. Has been upright for approx. 40 min. and feeling OK. Still having a lot of pain in left hip, no c/o pain elsewhere. Feeling very tired. Pain currently 8/10 and states her goal is to not be "dying." Though admits being up is better today then yesterday. Doesn't feel like she gets any relief from oxycodone. Wants to be able to go to PMRU, aware she'll need to be able to tolerate more interventions. No BM, but feels like she needs to go. Medications: Al Hydrox/Mg Hydrox/Simethicone (Maalox Plus*) 30 ml PO DAILY PRN PRN Reason: INDIGESTION Amitriptyline HCl (Elavil Tab*) 25 mg PO BEDTIME PRN PRN Reason: SLEEP Last Admin: 07/05/16 01:25 Dose: 25 mg Aspirin (Aspirin Low Dose Tab*) 81 mg PO DAILY [facility] Last Admin: 07/07/16 07:57 Dose: 81 mg Atorvastatin Calcium (Lipitor*) 10 mg PO DAILY [facility] PRN Reason: Protocol Last Admin: 07/07/16 07:57 Dose: 10 mg Cetirizine HCl (Zyrtec*) 10 mg PO DAILY [facility] Last Admin: 07/07/16 07:57 Dose: 10 mg Cholecalciferol (Vitamin D Tab*) 1,000 units PO DAILY [facility] Last Admin: 07/07/16 07:57 Dose: 1,000 units Docusate Sodium (Colace Cap*) 100 mg PO DAILY [facility] Last Admin: 07/07/16 07:57 Dose: 100 mg Enoxaparin Sodium (Lovenox(*)) 30 mg SUBCUT Q24H [facility] Last Admin: 07/07/16 07:59 Dose: 30 mg Gabapentin (Neurontin Cap(*)) 900 mg PO TID [facility] Last Admin: 07/07/16 07:58 Dose: 900 mg Levothyroxine Sodium (Synthroid Tab*) 125 mcg PO 0600 [facility] Last Admin: 07/07/16 05:01 Dose: 125 mcg Lidocaine (Lidoderm 5% Patch*) 1 patch TRANSDERM DAILY [facility] Last Admin: 07/07/16 08:09 Dose: 1 patch Loperamide HCl (Imodium Cap*) 2 mg PO .SEE DIRECTIONS PRN PRN Reason: DIARRHEA Omeprazole (Prilosec Cap*) 20 mg PO DAILY [facility] PRN Reason: Protocol Last Admin: 07/07/16 07:59 Dose: 20 mg Ondansetron HCl (Zofran Inj*) 4 mg IV Q6H PRN PRN Reason: NAUSEA Pharmacy Profile Note (Fentanyl Patch Check Q Shift) 1 note N/A 0700,1900 [facility] Last Admin: 07/07/16 06:43 Dose: 1 note Pharmacy Profile Note (Lidocaine Patch Remove*) 1 note PATCH OFF 2100 [facility] Last Admin: 07/06/16 21:53 Dose: 1 note Polyethylene Glycol/Electrolytes (Miralax*) 17 gm PO DAILY [facility] Last Admin: 07/07/16 07:56 Dose: 17 gm Senna (Senokot Tab*) 1 tab PO DAILY PRN PRN Reason: constipation/no BM Last Admin: 07/06/16 21:52 Dose: 1 tab Objective: [] Vital Signs Temp Pulse Resp BP Pulse Ox 98.5 F 85 16 113/60 94 07/07/16 03:54 07/07/16 07:38 07/07/16 07:58 07/07/16 07:38 07/07/16 07:38 A&Ox3, EOMI, QUESADA, neuro grossly non-focal HRR, S1S2 LS clear throughout, resp. even and non-labored +BS, abd. soft and non-tender +PP=bilat., no edema L hip dressing CDI Assessment: []71 yo f with severe pain felt to be related to new bone mets s/p left hip fixation. Plan: []1. Increase Fentanyl to 75 mcg, stop oxycodone and start PO dilaudid 2 mg q2hrs PRN, decrease frequency of IV dilaudid. 2. Continue PT, provided support and encouragement to pt., motivated by goal of getting home independently 3. Mild hyponatremia yesterday, but good PO intake, will recheck tomorrow 4. Path pending but once confirmed will consider RT
[2016-07-07] MEDS: HYDROmorphone TAB* 2 MG PO PRN ×3 (10:08→18:36)
[2016-07-07] MEDS: fentaNYL PATCH 75 MCG/HR* 75 MCG TRANSDERM SCH (12:42)
[2016-07-07] MEDS: Lidocaine Patch REMOVE* 1 NOTE MISC PATCH OFF SCH (20:29)
[2016-07-08] MEDS: HYDROmorphone TAB* 2 MG PO PRN ×4 (06:12→21:07)
[2016-07-08] MEDS: Levothyroxine TAB* 125 MCG TAB PO SCH (06:12)
[2016-07-08 06:54] LABS: Hematocrit 24 % (35-47); Hemoglobin 8.3 g/dl (12.0-16.0); Mean Corpuscular HGB Conc 34 g/dl (31-36); Mean Corpuscular Hemoglobin 33 pg (27-31); Mean Corpuscular Volume 96 fL (80-97); Mean Platelet Volume 8 um3 (7.4-10.4); Red Blood Count 2.54 10^6/ul (4.0-5.4); Red Cell Distribution Width 15 % (10.5-15); White Blood Count 5.9 10^3/ul (3.5-10.8)
[2016-07-08] MEDS: fentaNYL Patch Check Q Shift 1 NOTE SCH ×2 (07:05→18:55)
[2016-07-08 07:10] LABS: BUN/Creatinine Ratio 29.7 (8-20); Calcium 8.6 mg/dL (8.6-10.3); EGFR African American 117.6 (>60); EGFR Non-African American 91.5 (>60)
--- NOTE | 2016-07-08 08:53 | PN ---
Progress Note - Progress Note SOAP: Subjective: seems more inclined to try acute inpatient rehab. she understands very clearly that she can not go home right now because there is no one to care for her there. no BM in 7 dys Objective: Vital Signs Temp Pulse Resp BP Pulse Ox 98.7 F 81 18 115/55 98 07/08/16 07:50 07/08/16 07:50 07/08/16 07:50 07/08/16 07:50 07/08/16 07:50 sitting up in nad perr eomi op dry CTA bl s1 s2 nl soft nt +Bs mild edema left leg, warm A+O x 3 Laboratory Results - last 24 hr 07/08/16 07/08/16 06:44 06:46 WBC 5.9 RBC 2.54 L Hgb 8.3 L Hct 24 L MCV 96 MCH 33 H MCHC 34 RDW 15 Plt Count 130 L MPV 8 Sodium 128 L Potassium 4.0 Chloride 85 L Carbon Dioxide 38 H Anion Gap 5 BUN 19 Creatinine 0.64 Est GFR ( Amer) 117.6 Est GFR (Non-Af Amer) 91.5 BUN/Creatinine Ratio 29.7 H Glucose 103 H Calcium 8.6 Al Hydrox/Mg Hydrox/Simethicone (Maalox Plus*) 30 ml PO DAILY PRN PRN Reason: INDIGESTION Amitriptyline HCl (Elavil Tab*) 25 mg PO BEDTIME PRN PRN Reason: SLEEP Last Admin: 07/05/16 01:25 Dose: 25 mg Aspirin (Aspirin Low Dose Tab*) 81 mg PO DAILY [facility] Last Admin: 07/07/16 07:57 Dose: 81 mg Atorvastatin Calcium (Lipitor*) 10 mg PO DAILY [facility] PRN Reason: Protocol Last Admin: 07/07/16 07:57 Dose: 10 mg Cetirizine HCl (Zyrtec*) 10 mg PO DAILY [facility] Last Admin: 07/07/16 07:57 Dose: 10 mg Cholecalciferol (Vitamin D Tab*) 1,000 units PO DAILY [facility] Last Admin: 07/07/16 07:57 Dose: 1,000 units Docusate Sodium (Colace Cap*) 100 mg PO DAILY [facility] Last Admin: 07/07/16 07:57 Dose: 100 mg Enoxaparin Sodium (Lovenox(*)) 30 mg SUBCUT Q24H [facility] Last Admin: 07/07/16 07:59 Dose: 30 mg Fentanyl (Duragesic Patch 75 Mcg/Hr*) 75 mcg TRANSDERM Q72H [facility] Last Admin: 07/07/16 12:42 Dose: 75 mcg Gabapentin (Neurontin Cap(*)) 900 mg PO TID [facility] Last Admin: 07/07/16 20:28 Dose: 900 mg Hydromorphone HCl (Dilaudid Tab*) 2 mg PO Q2H PRN PRN Reason: PAIN Last Admin: 07/08/16 06:12 Dose: 2 mg Hydromorphone HCl (Dilaudid Iv*) 1 mg IV SLOW PU Q6HR PRN PRN Reason: PAIN - UNRELIEVED Sodium Chloride (Ns 0.9% 1000 Ml*) 1,000 mls @ 150 mls/hr IV PER RATE [facility] Stop: 07/09/16 15:24 Lactulose (Lactulose*) 30 ml PO TID [facility] Levothyroxine Sodium (Synthroid Tab*) 125 mcg PO 0600 [facility] Last Admin: 07/08/16 06:12 Dose: 125 mcg Lidocaine (Lidoderm 5% Patch*) 1 patch TRANSDERM DAILY [facility] Last Admin: 07/07/16 08:09 Dose: 1 patch Loperamide HCl (Imodium Cap*) 2 mg PO .SEE DIRECTIONS PRN PRN Reason: DIARRHEA Omeprazole (Prilosec Cap*) 20 mg PO DAILY [facility] PRN Reason: Protocol Last Admin: 07/07/16 07:59 Dose: 20 mg Ondansetron HCl (Zofran Inj*) 4 mg IV Q6H PRN PRN Reason: NAUSEA Pharmacy Profile Note (Fentanyl Patch Check Q Shift) 1 note N/A 0700,1900 [facility] Last Admin: 07/08/16 07:05 Dose: 1 note Pharmacy Profile Note (Lidocaine Patch Remove*) 1 note PATCH OFF 2100 [facility] Last Admin: 07/07/16 20:29 Dose: 1 note Polyethylene Glycol/Electrolytes (Miralax*) 17 gm PO DAILY [facility] Last Admin: 07/07/16 07:56 Dose: 17 gm Senna (Senokot Tab*) 1 tab PO DAILY PRN PRN Reason: constipation/no BM Last Admin: 07/06/16 21:52 Dose: 1 tab Assessment: 71 yo F w newly found metastatic disease to her left hip, interestingly staining TTF-1 negative unlike her initial lung cancer. special stains pending. We discussed at length today that she will either need to be able to do 3 hours of acute inpatient rehab OR go to a SNF with rehab because she CAN NOT care for self at home. She is now in agreement with this. we will have PMRU re- evaluate her on Sunday. Plan: hyponatremia: ?SIADH vs. hypovolemia. dry on exam, will give 2 L NS today, check serum and urine osms, and have asked her to limit free water intake pain control: seems better on current regimen obstipation: add lactulose today cont lovenox full code
[2016-07-08] MEDS: Lidocaine PATCH 5%* 1 PATCH TRANSDERM SCH (08:54)
[2016-07-08] MEDS: NS 0.9% 1000 ML* 1,000 ML IV SCH ×2 (08:56→23:13)
[2016-07-08] MEDS: Omeprazole CAP* 20 MG PO SCH (08:56)
[2016-07-08] MEDS: Atorvastatin* 10 MG TAB PO SCH (08:57)
[2016-07-08] MEDS: Docusate CAP* 100 MG PO SCH (08:57)
[2016-07-08] MEDS: Aspirin Low Dose CHEW TAB* 81 MG PO SCH (08:57)
[2016-07-08] MEDS: Cetirizine* 10 MG TAB PO SCH (08:57)
[2016-07-08] MEDS: Senna TAB PO PRN (08:57)
[2016-07-08] MEDS: Gabapentin CAP(*) 300 MG PO SCH ×3 (08:57→21:08)
[2016-07-08] MEDS: Cholecalciferol TAB* 1000 UNITS PO SCH (08:57)
[2016-07-08] MEDS: Polyethylene Glycol 3350* 17 GM PACKET PO SCH (08:58)
[2016-07-08] MEDS: Enoxaparin(*) 30 MG/0.3 ML SYR SUBCUT SCH (08:58)
--- NOTE | 2016-07-08 09:59 | PN ---
Progress Note - Progress Note SOAP: Subjective: [71 y/o F S/P IM nailing L hip 4/[address] Ruffin. Patient concerned about DC. Feeling well overall, pain better controlled. Febrile overnight to 101.5, CXR, UA ordered. ] Objective: [General- Sitting in bed, eating breakfast, NAD AO MSK- Dressing changed from 3 surgical sites, minimal bloody drainage seen on superior wound, others C/D/I. + DF/PF R LE, mild edema RLE. ] Vital Signs Temp 98.7 F 07/08/16 07:50 Pulse 81 07/08/16 07:50 Resp 20 07/08/16 08:57 BP 115/55 07/08/16 07:50 Pulse Ox 98 07/08/16 07:50 Intake & Output 07/07/16 07/08/16 07/08/16 18:59 06:59 18:59 Intake Total 240 380 Output Total 300 900 Balance -60 -520 Intake: Oral 240 380 Output: Woo 300 900 Laboratory Results - last 24 hr 07/08/16 07/08/16 06:44 06:46 WBC 5.9 RBC 2.54 L Hgb 8.3 L Hct 24 L MCV 96 MCH 33 H MCHC 34 RDW 15 Plt Count 130 L MPV 8 Sodium 128 L Potassium 4.0 Chloride 85 L Carbon Dioxide 38 H Anion Gap 5 BUN 19 Creatinine 0.64 Est GFR ( Amer) 117.6 Est GFR (Non-Af Amer) 91.5 BUN/Creatinine Ratio 29.7 H Glucose 103 H Calcium 8.6 Assessment: [71 y/o F S/P IM nailing L hip 4/[address] Ruffin.] Plan: [- Hyponatremia- fluid restrictions, NS per onc. - Continue PT- PMRU consult with better pain control - F/U UA, CXR - H&H stable - Path - Met adenoCA - DVT prophylaxis- lovenox Active Medications Generic Name Dose Route Start Last Admin Trade Name Freq PRN Reason Stop Dose Admin Al Hydrox/Mg Hydrox/Simethicone 30 ml 06/28/16 14:27 Maalox Plus* PO DAILY PRN INDIGESTION Amitriptyline HCl 25 mg 06/28/16 14:27 07/05/16 01:25 Elavil Tab* PO 25 mg BEDTIME PRN Administration SLEEP Aspirin 81 mg 06/29/16 09:00 07/08/16 08:57 Aspirin Low Dose Tab* PO 81 mg DAILY JYOTHI Administration Atorvastatin Calcium 10 mg 06/29/16 09:00 07/08/16 08:57 Lipitor* PO 10 mg DAILY JYOTHI Administration Protocol Cetirizine HCl 10 mg 06/29/16 09:00 07/08/16 08:57 Zyrtec* PO 10 mg DAILY JYOTHI Administration Cholecalciferol 1,000 units 06/29/16 09:00 07/08/16 08:57 Vitamin D Tab* PO 1,000 units DAILY JYOTHI Administration Docusate Sodium 100 mg 06/29/16 09:00 07/08/16 08:57 Colace Cap* PO 100 mg DAILY JYOTHI Administration Enoxaparin Sodium 30 mg 07/05/16 08:00 07/08/16 08:58 Lovenox(*) SUBCUT 30 mg Q24H JYOTHI Administration Fentanyl 75 mcg 07/07/16 10:00 07/07/16 12:42 Duragesic Patch 75 Mcg/Hr* TRANSDERM 75 mcg Q72H JYOTHI Administration Gabapentin 900 mg 06/28/16 21:00 07/08/16 08:57 Neurontin Cap(*) PO 900 mg TID JYOTHI Administration Hydromorphone HCl 2 mg 07/07/16 09:49 07/08/16 06:12 Dilaudid Tab* PO 2 mg Q2H PRN Administration PAIN Hydromorphone HCl 1 mg 07/07/16 09:49 Dilaudid Iv* IV SLOW PU Q6HR PRN PAIN - UNRELIEVED Sodium Chloride 1,000 mls @ 150 mls/hr 07/08/16 08:45 07/08/16 08:56 Ns 0.9% 1000 Ml* IV 07/09/16 15:24 150 mls/hr PER RATE JYOTHI Administration Lactulose 30 ml 07/08/16 09:00 Lactulose* PO TID JYOTHI Levothyroxine Sodium 125 mcg 06/29/16 06:00 07/08/16 06:12 Synthroid Tab* PO 125 mcg 0600 JYOTHI Administration Lidocaine 1 patch 06/30/16 09:00 07/08/16 08:54 Lidoderm 5% Patch* TRANSDERM 1 patch DAILY JYOTHI Administration Loperamide HCl 2 mg 06/28/16 13:48 Imodium Cap* PO .SEE DIRECTIONS PRN DIARRHEA Omeprazole 20 mg 06/29/16 09:00 07/08/16 08:56 Prilosec Cap* PO 20 mg DAILY JYOTHI Administration Protocol Ondansetron HCl 4 mg 06/28/16 13:35 Zofran Inj* IV Q6H PRN NAUSEA Pharmacy Profile Note 1 note 06/28/16 19:00 07/08/16 07:05 Fentanyl Patch Check Q Shift N/A 1 note 0700,1900 JYOTHI Administration Pharmacy Profile Note 1 note 06/30/16 21:00 07/07/16 20:29 Lidocaine Patch Remove* PATCH OFF 1 note 2100 JYOTHI Administration Polyethylene Glycol/Electrolytes 17 gm 07/05/16 09:00 07/08/16 08:58 Miralax* PO 17 gm DAILY JYOTHI Administration Senna 1 tab 07/04/16 09:41 07/08/16 08:57 Senokot Tab* PO 1 tab DAILY PRN Administration constipation/no BM ]
--- NOTE | 2016-07-08 10:00 | RAD ---
INDICATION: Postoperative. Fever COMPARISON: Chest x-ray December 11, 2015; CT chest/abdomen/pelvis June 28, 2016 TECHNIQUE: PA and lateral dual-energy views were obtained. FINDINGS: Bones/Soft Tissues: There are no acute bony findings. Cardiomediastinal/lung: The correct silhouette is unchanged and the CAT scan. There is left perihilar infiltrate extending into the left upper lobe and infiltrate and/or adenopathy in the right hilar/infrahilar region region. The remaining lung olmedo are clear Pleura: There are no pleural effusions. Other: None IMPRESSION: ABNORMAL CARDIAC SILHOUETTE WITH ADENOPATHY AND INFILTRATES. HYPERINFLATION. NO SUBSTANTIAL CHANGE SINCE THE RECENT CT.
[2016-07-08] MEDS: LACTULOSE* 30 ML UDC PO SCH ×3 (10:24→21:08)
[2016-07-08 11:18] LABS: Urine Bacteria Absent (Absent); Urine Bilirubin Negative (Negative); Urine Glucose Negative (Negative); Urine Nitrite Negative (Negative)
[2016-07-08] MEDS: Lidocaine Patch REMOVE* 1 NOTE MISC PATCH OFF SCH (21:11)
[2016-07-09] MEDS: HYDROmorphone TAB* 2 MG PO PRN ×3 (05:38→16:26)
[2016-07-09] MEDS: Levothyroxine TAB* 125 MCG TAB PO SCH (05:39)
[2016-07-09] MEDS: fentaNYL Patch Check Q Shift 1 NOTE SCH ×2 (06:45→18:57)
[2016-07-09] MEDS: Omeprazole CAP* 20 MG PO SCH (07:58)
[2016-07-09] MEDS: Docusate CAP* 100 MG PO SCH (07:58)
[2016-07-09] MEDS: Gabapentin CAP(*) 300 MG PO SCH ×3 (07:58→21:14)
[2016-07-09] MEDS: Aspirin Low Dose CHEW TAB* 81 MG PO SCH (07:59)
[2016-07-09] MEDS: Cetirizine* 10 MG TAB PO SCH (07:59)
[2016-07-09] MEDS: Atorvastatin* 10 MG TAB PO SCH (07:59)
[2016-07-09] MEDS: Cholecalciferol TAB* 1000 UNITS PO SCH (07:59)
[2016-07-09] MEDS: Enoxaparin(*) 30 MG/0.3 ML SYR SUBCUT SCH (07:59)
[2016-07-09] MEDS: Lidocaine PATCH 5%* 1 PATCH TRANSDERM SCH (08:01)
[2016-07-09] MEDS: Polyethylene Glycol 3350* 17 GM PACKET PO SCH (08:26)
[2016-07-09] MEDS: LACTULOSE* 30 ML UDC PO SCH ×3 (08:26→21:03)
--- NOTE | 2016-07-09 08:44 | PN ---
Subjective Date of Service: 07/09/16 Interval History: Pt feels well, wants to go home. Objective Active Medications: Al Hydrox/Mg Hydrox/Simethicone (Maalox Plus*) 30 ml PO DAILY PRN PRN Reason: INDIGESTION Amitriptyline HCl (Elavil Tab*) 25 mg PO BEDTIME PRN PRN Reason: SLEEP Last Admin: 07/05/16 01:25 Dose: 25 mg Aspirin (Aspirin Low Dose Tab*) 81 mg PO DAILY [facility] Last Admin: 07/09/16 07:59 Dose: 81 mg Atorvastatin Calcium (Lipitor*) 10 mg PO DAILY [facility] PRN Reason: Protocol Last Admin: 07/09/16 07:59 Dose: 10 mg Cetirizine HCl (Zyrtec*) 10 mg PO DAILY [facility] Last Admin: 07/09/16 07:59 Dose: 10 mg Cholecalciferol (Vitamin D Tab*) 1,000 units PO DAILY [facility] Last Admin: 07/09/16 07:59 Dose: 1,000 units Docusate Sodium (Colace Cap*) 100 mg PO DAILY [facility] Last Admin: 07/09/16 07:58 Dose: 100 mg Enoxaparin Sodium (Lovenox(*)) 30 mg SUBCUT Q24H [facility] Last Admin: 07/09/16 07:59 Dose: 30 mg Fentanyl (Duragesic Patch 75 Mcg/Hr*) 75 mcg TRANSDERM Q72H [facility] Last Admin: 07/07/16 12:42 Dose: 75 mcg Gabapentin (Neurontin Cap(*)) 900 mg PO TID [facility] Last Admin: 07/09/16 07:58 Dose: 900 mg Hydromorphone HCl (Dilaudid Tab*) 2 mg PO Q2H PRN PRN Reason: PAIN Last Admin: 07/09/16 05:38 Dose: 2 mg Hydromorphone HCl (Dilaudid Iv*) 1 mg IV SLOW PU Q6HR PRN PRN Reason: PAIN - UNRELIEVED Sodium Chloride (Ns 0.9% 1000 Ml*) 1,000 mls @ 150 mls/hr IV PER RATE [facility] Stop: 07/09/16 15:24 Last Admin: 07/08/16 23:13 Dose: 150 mls/hr Lactulose (Lactulose*) 30 ml PO TID [facility] Last Admin: 07/09/16 08:26 Dose: Not Given Levothyroxine Sodium (Synthroid Tab*) 125 mcg PO 0600 [facility] Last Admin: 07/09/16 05:39 Dose: 125 mcg Lidocaine (Lidoderm 5% Patch*) 1 patch TRANSDERM DAILY [facility] Last Admin: 07/09/16 08:01 Dose: 1 patch Loperamide HCl (Imodium Cap*) 2 mg PO .SEE DIRECTIONS PRN PRN Reason: DIARRHEA Omeprazole (Prilosec Cap*) 20 mg PO DAILY [facility] PRN Reason: Protocol Last Admin: 07/09/16 07:58 Dose: 20 mg Ondansetron HCl (Zofran Inj*) 4 mg IV Q6H PRN PRN Reason: NAUSEA Pharmacy Profile Note (Fentanyl Patch Check Q Shift) 1 note N/A 0700,1900 [facility] Last Admin: 07/09/16 06:45 Dose: 1 note Pharmacy Profile Note (Lidocaine Patch Remove*) 1 note PATCH OFF 2100 [facility] Last Admin: 07/08/16 21:11 Dose: 1 note Polyethylene Glycol/Electrolytes (Miralax*) 17 gm PO DAILY [facility] Last Admin: 07/09/16 08:26 Dose: Not Given Senna (Senokot Tab*) 1 tab PO DAILY PRN PRN Reason: constipation/no BM Last Admin: 07/08/16 08:57 Dose: 1 tab Vital Signs 07/08/16 07/08/16 07/08/16 08:57 10:25 10:57 Temperature Pulse Rate Respiratory 20 16 20 Rate Blood Pressure (mmHg) O2 Sat by Pulse Oximetry 07/08/16 07/08/16 07/08/16 12:25 13:56 15:59 Temperature 99.9 F 98.6 F Pulse Rate 95 90 Respiratory 18 18 17 Rate Blood Pressure 134/53 112/60 (mmHg) O2 Sat by Pulse 95 94 Oximetry 07/08/16 07/08/16 07/08/16 16:00 18:11 18:54 Temperature Pulse Rate Respiratory 18 Rate Blood Pressure (mmHg) O2 Sat by Pulse 93 93 Oximetry 07/08/16 07/08/16 07/08/16 19:28 20:46 20:54 Temperature 99.2 F Pulse Rate 88 Respiratory 20 16 16 Rate Blood Pressure 124/53 (mmHg) O2 Sat by Pulse 94 Oximetry 07/08/16 07/08/16 07/09/16 21:07 23:07 00:00 Temperature Pulse Rate Respiratory 16 14 Rate Blood Pressure (mmHg) O2 Sat by Pulse 96 Oximetry 07/09/16 07/09/16 07/09/16 00:17 03:50 05:38 Temperature 98.3 F 98.1 F Pulse Rate 84 79 Respiratory 16 16 16 Rate Blood Pressure 114/57 122/53 (mmHg) O2 Sat by Pulse 94 96 Oximetry 07/09/16 07/09/16 07:38 07:58 Temperature Pulse Rate Respiratory 16 18 Rate Blood Pressure (mmHg) O2 Sat by Pulse Oximetry Oxygen Devices in Use Now: Nasal Cannula - 2L NC Appearance: 71 yo F in nAD, aAOx3 Eyes: No Scleral Icterus, PERRLA Ears/Nose/Mouth/Throat: NL Teeth, Lips, Gums, Mucous Membranes Moist Neck: NL Appearance and Movements; NL JVP, Trachea Midline Respiratory: Symmetrical Chest Expansion and Respiratory Effort, - - scant b/l mid lung wheeze Cardiovascular: NL Sounds; No Murmurs; No JVD, RRR Abdominal: NL Sounds; No Tenderness; No Distention, No Hepatosplenomegaly Lymphatic: No Cervical Adenopathy Extremities: No Clubbing, Cyanosis Skin: No Nodules or Sclerosis, - - left mid thigh incision -not uncovered Neurological: Alert and Oriented x 3, NL Muscle Strength and Tone Result Diagrams: 07/09/16 08:23 07/09/16 08:23 Additional Lab and Data: Lab Results 06/28/16 06/28/16 Range/Units 13:30 13:30 WBC 10.7 (3.5-10.8) 10^3/ul RBC 3.18 L (4.0-5.4) 10^6/ul Hgb 10.1 L (12.0-16.0) g/dl Hct 31 L (35-47) % MCV 96 (80-97) fL MCH 32 H (27-31) pg MCHC 33 (31-36) g/dl RDW 15 (10.5-15) % Plt Count 154 (150-450) 10^3/ul MPV 8 (7.4-10.4) um3 Sodium 134 (133-145) mmol/L Potassium 4.0 (3.5-5.0) mmol/L Chloride 95 L (101-111) mmol/L Carbon Dioxide 30 (22-32) mmol/L Anion Gap 9 (2-11) mmol/L BUN 27 H (6-24) mg/dL Creatinine 0.93 (0.51-0.95) mg/dL Est GFR ( Amer) 76.4 (>60) Est GFR (Non-Af Amer) 59.4 (>60) BUN/Creatinine Ratio 29.0 H (8-20) Glucose 112 H (70-100) mg/dL Calcium 9.7 (8.6-10.3) mg/dL Assess/Plan/Problems-Billing Assessment: 71 yo F w PMH of locally advanced lung cancer in surveillance now admitted with intractable pain and found to have a large left femur lesion. Hx of COPD on 2 L 02 t home) and lung cancer ( inoperable lung cancer stage III s/p curative intent cisplatin/etoposide/RT in mid 2015) S/p left femur pinning on 07/04/16 - Patient Problems (1) Left femur lesion Comment: Dispo per Ortho and Onc s/p left femur nail placement on 07/04/16. post op fever on 07/07/16-no recurrnce. W/up with questionable UA. No antibiotics for now. Awaiting cx. D/c Woo today. (2) Hyponatremia Comment: urine studies and BMP pending for today. S/p 2 L IVF on 07/08/16 (3) Hypothyroid Comment: continue synthroid (4) Postoperative anemia due to acute blood loss Comment: Hb down to 8 from baseline 10, now stable. No need for transfusion (5) Hypoxia Comment: due to COPD(not in exacerbtion) and lung cancer On her baseline oxygen at 2 L chronic (6) DVT prophylaxis Comment: lovenox Status and Disposition: inpatient. Dispo per Ortho and ONC.
[2016-07-09 08:57] LABS: Albumin 2.7 g/dL (3.2-5.2); BUN/Creatinine Ratio 26.3 (8-20); Calcium 8.4 mg/dL (8.6-10.3); EGFR African American 134.5 (>60); EGFR Non-African American 104.6 (>60); Globulin 3.3 g/dL (2-4); Potassium 3.9 mmol/L (3.5-5.0); Total Bilirubin 0.6 mg/dL (0.2-1.0)
[2016-07-09 09:06] LABS: Hematocrit 25 % (35-47); Hemoglobin 8.1 g/dl (12.0-16.0); Mean Corpuscular HGB Conc 33 g/dl (31-36); Mean Corpuscular Hemoglobin 32 pg (27-31); Mean Corpuscular Volume 97 fL (80-97); Mean Platelet Volume 9 um3 (7.4-10.4); Red Blood Count 2.56 10^6/ul (4.0-5.4); Red Cell Distribution Width 14 % (10.5-15); White Blood Count 5.8 10^3/ul (3.5-10.8)
--- NOTE | 2016-07-09 09:35 | PN ---
Progress Note - Progress Note SOAP: Subjective: Pt. reports pain is improving. Objective: LLE - inc's c/d/i. distally nvi. Vital Signs: Temp Pulse Resp BP Pulse Ox 98.0 F 86 18 110/71 91 07/09/16 08:11 07/09/16 08:11 07/09/16 08:11 07/09/16 08:11 07/09/16 08:11 Laboratory Results - last 24 hr 07/08/16 07/09/16 07/09/16 10:45 08:23 08:23 WBC 5.8 RBC 2.56 L Hgb 8.1 L Hct 25 L MCV 97 MCH 32 H MCHC 33 RDW 14 Plt Count 140 L MPV 9 Neut % (Auto) 79.0 Lymph % (Auto) 7.2 L [place] % (Auto) 9.3 H Eos % (Auto) 4.2 Baso % (Auto) 0.3 Absolute Neuts (auto) 4.6 Absolute Lymphs (auto) 0.4 L Absolute Monos (auto) 0.5 Absolute Eos (auto) 0.2 Absolute Basos (auto) 0 Absolute Nucleated RBC 0 Nucleated RBC % 0.1 Sodium 129 L Potassium 3.9 Chloride 89 L Carbon Dioxide 34 H Anion Gap 6 BUN 15 Creatinine 0.57 Est GFR ( Amer) 134.5 Est GFR (Non-Af Amer) 104.6 BUN/Creatinine Ratio 26.3 H Glucose 98 Calcium 8.4 L Total Bilirubin 0.60 AST 98 H ALT 106 H Alkaline Phosphatase 216 H Total Protein 6.0 L Albumin 2.7 L Globulin 3.3 Albumin/Globulin Ratio 0.8 L Urine Color Yellow Urine Appearance Clear Urine pH 6.0 Ur Specific [place] 1.017 Urine Protein 2+(100 mg/dl) H Urine Ketones Negative Urine Blood 1+ H Urine Nitrate Negative Urine Bilirubin Negative Urine Urobilinogen Positive H Ur Leukocyte Esterase Trace H Urine WBC (Auto) 1+(6-10/hpf) H Urine RBC (Auto) 3+(>10/hpf) H Ur Squamous Epith Cells Present H Urine Bacteria Absent Hyaline Casts Present H Urine Glucose Negative Assessment: 71 yo F pod 5 s/p prophylactic IM nailing L femur. Plan: wbat lle pt/ot pmru re-look today, possible d/c
[2016-07-09] MEDS: Lidocaine Patch REMOVE* 1 NOTE MISC PATCH OFF SCH (21:03)
[2016-07-10] MEDS: HYDROmorphone TAB* 2 MG PO PRN ×4 (00:57→15:38)
[2016-07-10] MEDS: Levothyroxine TAB* 125 MCG TAB PO SCH (06:07)
[2016-07-10] MEDS: fentaNYL Patch Check Q Shift 1 NOTE SCH (06:57)
[2016-07-10 07:04] LABS: Hematocrit 24 % (35-47); Mean Corpuscular HGB Conc 34 g/dl (31-36); Mean Corpuscular Hemoglobin 32 pg (27-31); Mean Corpuscular Volume 96 fL (80-97); Mean Platelet Volume 9 um3 (7.4-10.4); Red Blood Count 2.47 10^6/ul (4.0-5.4); Red Cell Distribution Width 14 % (10.5-15)
[2016-07-10 07:28] LABS: BUN/Creatinine Ratio 21.9 (8-20); Calcium 8.6 mg/dL (8.6-10.3); EGFR African American 117.6 (>60); EGFR Non-African American 91.5 (>60); Potassium 3.7 mmol/L (3.5-5.0)
[2016-07-10] MEDS: Enoxaparin(*) 30 MG/0.3 ML SYR SUBCUT SCH (08:25)
[2016-07-10] MEDS: Gabapentin CAP(*) 300 MG PO SCH ×2 (08:26→14:05)
[2016-07-10] MEDS: Atorvastatin* 10 MG TAB PO SCH (08:26)
[2016-07-10] MEDS: Aspirin Low Dose CHEW TAB* 81 MG PO SCH (08:27)
[2016-07-10] MEDS: Cholecalciferol TAB* 1000 UNITS PO SCH (08:27)
[2016-07-10] MEDS: Docusate CAP* 100 MG PO SCH (08:27)
[2016-07-10] MEDS: Cetirizine* 10 MG TAB PO SCH (08:28)
[2016-07-10] MEDS: Omeprazole CAP* 20 MG PO SCH (08:28)
[2016-07-10] MEDS: LACTULOSE* 30 ML UDC PO SCH ×2 (08:48→14:03)
[2016-07-10] MEDS: Polyethylene Glycol 3350* 17 GM PACKET PO SCH (08:48)
--- NOTE | 2016-07-10 09:29 | PN ---
Progress Note - Progress Note SOAP: Subjective: []Patient seen OOB in chair. Pain well managed. No other current complaints. Objective: [] Vital Signs Temp 97.9 F 07/10/16 03:35 Pulse 86 07/10/16 03:35 Resp 16 07/10/16 08:28 BP 117/55 07/10/16 03:35 Pulse Ox 95 07/10/16 03:35 Intake & Output 07/09/16 07/10/16 07/10/16 18:59 06:59 18:59 Intake Total 860 550 Output Total 1700 850 Balance -840 -300 Intake: Oral 860 550 Output: Urine 300 850 Woo 1400 Other: # Bowel Movements 3 Estimated Stool Amount Medium Laboratory Results - last 24 hr 07/09/16 07/10/16 07/10/16 16:19 06:30 06:30 WBC 6.0 RBC 2.47 L Hgb 8.0 L Hct 24 L MCV 96 MCH 32 H MCHC 34 RDW 14 Plt Count 150 MPV 9 Sodium 130 L Potassium 3.7 Chloride 88 L Carbon Dioxide 36 H Anion Gap 6 BUN 14 Creatinine 0.64 Est GFR ( Amer) 117.6 Est GFR (Non-Af Amer) 91.5 BUN/Creatinine Ratio 21.9 H Glucose 101 H Calcium 8.6 Ur Random Sodium 95 Left LE incisions are healing well, no drainage, open to air calf NT and soft, mild LE edema +DF/PF left ankle Assessment: []s/p prophylactic IM nail left femur POD #4 Plan: []PT/OT WBAT LLE Await rehab bed transfer
[2016-07-10] MEDS: Lidocaine PATCH 5%* 1 PATCH TRANSDERM SCH (10:27)
--- NOTE | 2016-07-10 10:29 | PN ---
Progress Note - Progress Note SOAP: Subjective: []Doing better. Pain improved and was walking down wood today. Re-evaluation for PMRU. Eating well. No fever or chills. Al Hydrox/Mg Hydrox/Simethicone (Maalox Plus*) 30 ml PO DAILY PRN PRN Reason: INDIGESTION Amitriptyline HCl (Elavil Tab*) 25 mg PO BEDTIME PRN PRN Reason: SLEEP Last Admin: 07/05/16 01:25 Dose: 25 mg Aspirin (Aspirin Low Dose Tab*) 81 mg PO DAILY [facility] Last Admin: 07/10/16 08:27 Dose: 81 mg Atorvastatin Calcium (Lipitor*) 10 mg PO DAILY [facility] PRN Reason: Protocol Last Admin: 07/10/16 08:26 Dose: 10 mg Cetirizine HCl (Zyrtec*) 10 mg PO DAILY [facility] Last Admin: 07/10/16 08:28 Dose: 10 mg Cholecalciferol (Vitamin D Tab*) 1,000 units PO DAILY [facility] Last Admin: 07/10/16 08:27 Dose: 1,000 units Docusate Sodium (Colace Cap*) 100 mg PO DAILY [facility] Last Admin: 07/10/16 08:27 Dose: 100 mg Enoxaparin Sodium (Lovenox(*)) 30 mg SUBCUT Q24H [facility] Last Admin: 07/10/16 08:25 Dose: 30 mg Fentanyl (Duragesic Patch 75 Mcg/Hr*) 75 mcg TRANSDERM Q72H [facility] Last Admin: 07/07/16 12:42 Dose: 75 mcg Gabapentin (Neurontin Cap(*)) 900 mg PO TID [facility] Last Admin: 07/10/16 08:26 Dose: 900 mg Hydromorphone HCl (Dilaudid Tab*) 2 mg PO Q2H PRN PRN Reason: PAIN Last Admin: 07/10/16 08:28 Dose: 2 mg Hydromorphone HCl (Dilaudid Iv*) 1 mg IV SLOW PU Q6HR PRN PRN Reason: PAIN - UNRELIEVED Lactulose (Lactulose*) 30 ml PO TID [facility] Last Admin: 07/10/16 08:48 Dose: Not Given Levothyroxine Sodium (Synthroid Tab*) 125 mcg PO 0600 [facility] Last Admin: 07/10/16 06:07 Dose: 125 mcg Lidocaine (Lidoderm 5% Patch*) 1 patch TRANSDERM DAILY [facility] Last Admin: 07/09/16 08:01 Dose: 1 patch Loperamide HCl (Imodium Cap*) 2 mg PO .SEE DIRECTIONS PRN PRN Reason: DIARRHEA Omeprazole (Prilosec Cap*) 20 mg PO DAILY [facility] PRN Reason: Protocol Last Admin: 07/10/16 08:28 Dose: 20 mg Ondansetron HCl (Zofran Inj*) 4 mg IV Q6H PRN PRN Reason: NAUSEA Pharmacy Profile Note (Fentanyl Patch Check Q Shift) 1 note N/A 0700,1900 [facility] Last Admin: 07/10/16 06:57 Dose: 1 note Pharmacy Profile Note (Lidocaine Patch Remove*) 1 note PATCH OFF 2100 [facility] Last Admin: 07/09/16 21:03 Dose: 1 note Polyethylene Glycol/Electrolytes (Miralax*) 17 gm PO DAILY [facility] Last Admin: 07/10/16 08:48 Dose: Not Given Senna (Senokot Tab*) 1 tab PO DAILY PRN PRN Reason: constipation/no BM Last Admin: 07/08/16 08:57 Dose: 1 tab Objective: [] Vital Signs Temp Pulse Resp BP Pulse Ox 97.9 F 81 16 107/54 95 07/10/16 07:39 07/10/16 07:39 07/10/16 08:28 07/10/16 07:39 07/10/16 07:39 HEENT- Pale CTA RRR S1S2 +BS, NT ND Left hip with two incisions, healing well Pathology: well differentiated adenocarcinoma, 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 TTF1 negative. Additional stains are pending. Reviewed with Dr. Dorantes Assessment: []71 year old with T2N2 lung cancer and now with L2 and left femur metastatic disease. Status post pin in hip for stability and recovering well. Plan: []1. Pain improving and possible transfer to PMRU 2. Will plan XRT to hip and L2 lesion, 2 weeks post op. 3. Discussed diagnosis of metastatic lung cancer. Will plan observation after lung cancer. Chemotherapy only for additional recurrence. Discussed that disease is likely not curable. Goals of therapy are QOL. She has low burden disease and favorable histology. Can have good QOL with therapy but prognosis limited. She is not sure over long term care pharmacist how much treatment for her lung cancer she will want. 4. Anemia. Check Iron and B12. No transfusion today. 5. Will continue to follow in PMRU 30 min with chart and at bedside.
[2016-07-10] MEDS: fentaNYL PATCH 75 MCG/HR* 75 MCG TRANSDERM SCH (11:24)
[2016-07-10 13:05] VITALS: BP 122/59
[2016-07-11 13:47] LABS: EGFR Specimen ID S17-2881-2A
== END 2016-07-10 16:31 | DRG 481 ==
LOC: ED 12:12 → MED 13:35 → OBSVTOIN 06-29 14:15 → SSU 07-04 22:49
PROVIDERS: ADMIT Internal Medicine Hematology & Oncology; ATTEND Internal Medicine Hematology & Oncology
PROC: 3E0V33Z Introduction of Anti-inflammatory into Bones, Percutaneous Approach (ICD-10-PCS; principal; 2016-06-29)
PROC: 0QH736Z Insertion of Intramedullary Internal Fixation Device into Left Upper Femur, Percutaneous Approach (ICD-10-PCS; 2016-07-04)
DX: C79.51 Secondary malignant neoplasm of bone (principal); E87.1 Hypo-osmolality and hyponatremia; M32.9 Systemic lupus erythematosus, unspecified; Z99.81 Dependence on supplemental oxygen; J44.9 Chronic obstructive pulmonary disease, unspecified; D62 Acute posthemorrhagic anemia; C34.90 Malignant neoplasm of unspecified part of unspecified bronchus or lung; G89.29 Other chronic pain; M41.9 Scoliosis, unspecified; E78.00 Pure hypercholesterolemia, unspecified; I10 Essential (primary) hypertension; J45.909 Unspecified asthma, uncomplicated; M19.90 Unspecified osteoarthritis, unspecified site; M06.9 Rheumatoid arthritis, unspecified; F32.9 Major depressive disorder, single episode, unspecified; G50.0 Trigeminal neuralgia; M54.9 Dorsalgia, unspecified; K21.9 Gastro-esophageal reflux disease without esophagitis; E78.5 Hyperlipidemia, unspecified; K22.2 Esophageal obstruction; E03.9 Hypothyroidism, unspecified; K27.9 Peptic ulcer, site unspecified, unspecified as acute or chronic, without hemorrhage or perforation; M54.10 Radiculopathy, site unspecified; A08.4 Viral intestinal infection, unspecified; M70.62 Trochanteric bursitis, left hip; K59.00 Constipation, unspecified; R50.82 Postprocedural fever; Z88.8 Allergy status to other drugs, medicaments and biological substances; Z91.040 Latex allergy status; Z91.048 Other nonmedicinal substance allergy status; Z92.21 Personal history of antineoplastic chemotherapy; Z92.3 Personal history of irradiation; Z80.3 Family history of malignant neoplasm of breast; Z80.1 Family history of malignant neoplasm of trachea, bronchus and lung; Z80.0 Family history of malignant neoplasm of digestive organs; Z87.891 Personal history of nicotine dependence; Z98.51 Tubal ligation status
CPT/HCPCS: 36415; 71020; 71260; 72197; 74177; 78306; 80048; 80053; 81003; 81015; 81235; 82150; 82565; 83690; 83930; 83935; 84300; 85014; 85018; 85025; 85027; 85610; 85730; 86850; 86900; 86901; 86922; 87086; 88304; 88341; 88342; 93005; 94760; 99220; 99225; 99232; 99233; A9270-GY; A9503; A9579; C1713; C1776; G0378; G8978-GP-CN; G8979-GP-CJ; J0690; J1040; J1100; J1170; J1650; J2250; J2270; J2405; J2704; J3010; Q9967

== ENCOUNTER 2016-07-23 12:46 | Inpatient (IN) | payer MEDICARE, OTHER ==
[2016-07-23] MEDS ORDERED: NS 0.9% 1000 ML*IV.FLUID IV ONE (12:53)
[2016-07-23] MEDS ORDERED: Acetaminophen TAB* 325 MG PO ONE (12:53)
[2016-07-23] MEDS ORDERED: Acetaminophen SUPP* 650 MG SUPP ONE (13:18)
[2016-07-23] MEDS ORDERED: Acetaminophen SUPP* 325 MG SUPP PR ONE (13:21)
[2016-07-23] MEDS ORDERED: Acetaminophen SUPP* 650 MG SUPP PR ONE (13:25)
--- NOTE | 2016-07-23 13:29 | RAD ---
Indication: Fever, tachycardia. Single frontal view of the chest performed at 1258 hours was reviewed. Comparison is made with previous exam dated July 16, 2016. Cardiomegaly is noted. Left upper lobe infiltrate and right infrahilar mass organ identified. Airspace disease in left upper lobe appears to progressed since prior exam. IMPRESSION: PROGRESSION OF LEFT UPPER LOBE AIRSPACE DISEASE AND RIGHT LOWER LOBE AND RIGHT INFRAHILAR MASS.
[2016-07-23 13:43] LABS: Hematocrit 22 % (35-47); Hemoglobin 7.2 g/dl (12.0-16.0); Mean Corpuscular HGB Conc 32 g/dl (31-36); Mean Corpuscular Hemoglobin 31 pg (27-31); Mean Corpuscular Volume 96 fL (80-97); Mean Platelet Volume 8 um3 (7.4-10.4); Red Blood Count 2.32 10^6/ul (4.0-5.4); Red Cell Distribution Width 15 % (10.5-15); White Blood Count 5.4 10^3/ul (3.5-10.8)
[2016-07-23 13:59] LABS: Albumin 2.6 g/dL (3.2-5.2); BUN/Creatinine Ratio 19.1 (8-20); C Reactive Protein 195.34 mg/L (< 5.00); Calcium 8.2 mg/dL (8.6-10.3); EGFR African American 109.7 (>60); EGFR Non-African American 85.3 (>60); Globulin 3.1 g/dL (2-4); Total Bilirubin 0.4 mg/dL (0.2-1.0); Total Protein 5.7 g/dL (6.4-8.9)
[2016-07-23 14:06] LABS: Troponin I 0.05 ng/mL (<0.04)
[2016-07-23] MEDS ORDERED: Cefepime(*) 2 GM in NS 0.9% 50 ML* 50 ML IVPB ONE (14:24)
[2016-07-23] MEDS ORDERED: Vancomycin(*) 1,000 MG in NS 0.9% 250 ML* 250 ML IVPB ONE (14:24)
--- NOTE | 2016-07-23 15:03 | RAD ---
Indication: Fever, confusion. CT of the brain was performed without IV contrast. Comparison is made with previous exam dated January 15, 2014. Ventricular structures are midline. No midline shift is noted. The extra-axial spaces are unremarkable. There is no evidence of intrarenal mass or hemorrhage. No other high or low density lesions are identified. Mastoid air cells and paranasal sinuses are unremarkable. Bony calvaria is unremarkable. IMPRESSION: There is no intracranial mass or hemorrhage noted.
[2016-07-23] MEDS ORDERED: Ondansetron ODT TAB* 4 MG PO PRN (15:12)
[2016-07-23] MEDS: NS 0.9% 1000 ML* 1,000 ML IV SCH (15:23)
[2016-07-23] MEDS ORDERED: Vancomycin per Pharmacy* NOTE FOLLOW UP PRN (15:54)
[2016-07-23] MEDS: Cefepime(*) 1 GM in NS 0.9% 50 ML* 50 ML IVPB SCH (16:04)
[2016-07-23] MEDS: Vancomycin(*) 1,000 MG in NS 0.9% 250 ML* 250 ML IVPB SCH (16:55)
--- NOTE | 2016-07-23 17:35 | ED ---
Mariangel Yan Michael, scribed for Racheal Salvador MD on 07/23/16 at 1311 . Altered Mental Status - HPI Summary HPI Summary: 71 y/o female was BIBA to the ED presenting with AMS that started 2 days ago. Pt has hx lung CA metastatic to bone, left leg DVT, is S/P recent ORIF left femur and radiation treatment to this leg, and pt was DC'd from [facility] 2 days ago. During her stay in [facility] she had low grade fevers, and pneumonia, was treated with Levaquin. She has a decreased appetite, more confused than her baseline recently, and febrile. Currently at the ED, the pt's temperature is 100.2, repeated 101. The PMHx is significant for Lupus and lung CA. The HPI is limited due to AMS (level 5 caveat) and pt meets SIRS criteria. - History Of Current Complaint Stated Complaint: SOB Time Seen by Provider: 07/23/16 12:53 Hx Obtained From: EMS, Medical Records Hx From Patient Unobtainable Due To: Altered Mental Status Onset/Duration: Still Present Timing: Constant Severity Initially: Moderate Severity Currently: Moderate Character: Confusion, Responsiveness Aggravating Factor(s): Unknown Alleviating Factor(s): Unknown Associated Signs And Symptoms: Positive: Fever - confusion. decreased appetite. - Allergies/Home Medications Allergies/Adverse Reactions: Allergies Allergy/AdvReac Type Severity Reaction Status Date / Time Carbamazepine Allergy Altered Verified 06/28/16 12:13 Mental Status Latex Allergy Unknown Verified 06/28/16 12:13 Reaction Details Nickel Allergy Unknown Verified 06/28/16 12:13 Reaction Details Hydrochlorothiazide AdvReac Mild See Comment Verified 06/28/16 12:13 w/Triamterene [From Dyazide] PMH/Surg Hx/FS Hx/Imm Hx Endocrine/Hematology History: Reports: Hx Anticoagulant Therapy, Hx Blood Disorders - hx DVT , Hx Systemic Lupus Erythematosus, Hx Thyroid Disease, Hx Anemia Denies: Hx Diabetes Cardiovascular History: Reports: Hx Hypercholesterolemia, Hx Hypertension Denies: Hx Congestive Heart Failure, Hx Pacemaker/ICD Respiratory History: Reports: Hx Asthma, Hx Chronic Obstructive Pulmonary Disease (COPD) - on 2L home O2, Hx Lung Cancer, Hx Pneumonia GI History: Reports: Hx Gastroesophageal Reflux Disease, Hx Ulcer History: Denies: Hx Renal Disease Musculoskeletal History: Reports: Hx Arthritis, Hx Rheumatoid Arthritis, Hx Back Problems, Hx Scoliosis Sensory History: Reports: Hx Contacts or Glasses Denies: Hx Cataracts, Hx Hearing Aid Opthamlomology History: Reports: Hx Contacts or Glasses Denies: Hx Cataracts Neurological History: Reports: Other Neuro Impairments/Disorders - TRIGEMINAL NEURALGIA Psychiatric History: Reports: Hx Depression Denies: Hx Panic Disorder - Cancer History Cancer Type, Location and Year: lung Cancer Stage 3 Hx Chemotherapy: Yes Hx Radiation Therapy: Yes - Surgical History Surgery Procedure, Year, and Place: Tonsillectomy and Adenoidectomy, D&C, TUBAL. Rt INDEX FINGER DEBRIDEMENT - FROM INFECTION. ORIF left femur 2016 Hx Anesthesia Reactions: No - Immunization History Date of Tetanus Vaccine: Up to date Date of Influenza Vaccine: Fall 2012 Infectious Disease History: Denies: Traveled Outside the [place] in Last 30 Days - Family History Known Family History: Positive: Other - cancer Family History: daughter lung cancer. mother, aunt breast cancer. sister colon and panceratic cancer - Social History Occupation: Disabled Lives: With Family Alcohol Use: Occasionally Alcohol Amount: 1 GLASS WINE MONTHLY Hx Substance Use: No Substance Use Type: Reports: None Hx Tobacco Use: Yes Smoking Status (MU): Former Smoker Type: Cigarettes Amount Used/How Often: 3ppd Length of Time of Smoking/Using Tobacco: 24 Have You Smoked in the Last Year: No Review of Systems - ROS Summary Review of Systems Summary: level 5 Caveat, pt with altered mental status, in extremis Positive: Fever Positive: Other - decreased appetite. Neurological: Other - AMS.confusion. All Other Systems Reviewed And Are Negative: Yes Physical Exam Triage Information Reviewed: Yes Vital Signs On Initial Exam: Initial Vitals Pulse Resp BP Pulse Ox 107 15 116/75 92 07/23/16 12:58 07/23/16 12:58 07/23/16 12:58 07/23/16 12:58 Vital Signs Reviewed: Yes Completion Of Physical Exam Limited Due To: Extremis Appearance: Positive: No Pain Distress, Well-Nourished, Ill-Appearing Skin: Positive: Dry, Cold, Pale Head/Face: Positive: Normal Head/Face Inspection Eyes: Positive: Conjunctiva Clear ENT: Positive: Hearing grossly normal, Other - dry oral mucosa. Negative: Muffled/hoarse voice Neck: Positive: Supple Respiratory/Lung Sounds: Positive: Decreased Breath Sounds, Rhonchi, Unable to speak in full sentences Cardiovascular: Positive: Pulses are Symmetrical in both Upper and Lower Extremities, Tachycardia. Negative: Murmur Abdomen Description: Positive: Nontender, Soft. Negative: Splenomegaly Musculoskeletal: Positive: Strength/ROM Intact, Other - twitchy, fasciculation, swelling left leg, surg site left femur clean and dry Neurological: Positive: Disoriented, Slurred Speech - undistinguished words, Dysarthric Aphasia. Negative: Facial Droop, Focal Deficit @ Psychiatric: Positive: Patient Uncooperative for Exam - due to extremis, unable to asses affect and mood Diagnostics - Vital Signs Vital Signs Temp Pulse Resp BP Pulse Ox 07/23/16 14:00 102 18 65 07/23/16 13:45 101 14 124/96 83 07/23/16 13:30 125/71 07/23/16 13:18 103 12 108/87 95 07/23/16 13:07 100.2 F 107 24 125/61 92 07/23/16 13:01 100.2 F 107 24 125/61 92 07/23/16 13:00 105/56 07/23/16 12:58 107 15 116/75 92 - Laboratory Lab Results: Lab Results 07/23/16 07/23/16 07/23/16 Range/Units 13:15 13:15 13:15 WBC 5.4 (3.5-10.8) 10^3/ul RBC 2.32 L (4.0-5.4) 10^6/ul Hgb 7.2 L (12.0-16.0) g/dl Hct 22 L (35-47) % MCV 96 (80-97) fL MCH 31 (27-31) pg MCHC 32 (31-36) g/dl RDW 15 (10.5-15) % Plt Count 137 L (150-450) 10^3/ul MPV 8 (7.4-10.4) um3 Neut % (Auto) 81.9 (38-83) % Lymph % (Auto) 8.7 L (25-47) % Nicollet % (Auto) 8.7 (1-9) % Eos % (Auto) 0.4 (0-6) % Baso % (Auto) 0.3 (0-2) % Absolute Neuts (auto) 4.4 (1.5-7.7) 10^3/ul Absolute Lymphs (auto) 0.5 L (1.0-4.8) 10^3/ul Absolute Monos (auto) 0.5 (0-0.8) 10^3/ul Absolute Eos (auto) 0 (0-0.6) 10^3/ul Absolute Basos (auto) 0 (0-0.2) 10^3/ul Absolute Nucleated RBC 0 10^3/ul Nucleated RBC % 0 INR (Anticoag Therapy) 1.94 H (0.89-1.11) APTT 33.1 (26.0-36.3) seconds Sodium 132 L (133-145) mmol/L Potassium 4.0 (3.5-5.0) mmol/L Chloride 90 L (101-111) mmol/L Carbon Dioxide 35 H (22-32) mmol/L Anion Gap 7 (2-11) mmol/L BUN 13 (6-24) mg/dL Creatinine 0.68 (0.51-0.95) mg/dL Est GFR ( Amer) 109.7 (>60) Est GFR (Non-Af Amer) 85.3 (>60) BUN/Creatinine Ratio 19.1 (8-20) Glucose 102 H (70-100) mg/dL Lactic Acid (0.5-2.0) mmol/L Calcium 8.2 L (8.6-10.3) mg/dL Total Bilirubin 0.40 (0.2-1.0) mg/dL AST 38 (13-39) U/L ALT 41 (7-52) U/L Alkaline Phosphatase 101 (34-104) U/L Total Creatine Kinase 32 (10-223) U/L Troponin I 0.05 H* (<0.04) ng/mL C-Reactive Protein 195.34 H (< 5.00) mg/L B-Natriuretic Peptide ( - 100) pg/mL Total Protein 5.7 L (6.4-8.9) g/dL Albumin 2.6 L (3.2-5.2) g/dL Globulin 3.1 (2-4) g/dL Albumin/Globulin Ratio 0.8 L (1-3) Procalcitonin (<0.6) ng/mL Blood Type Antibody Screen Crossmatch 07/23/16 07/23/16 07/23/16 Range/Units 13:15 13:15 13:15 WBC (3.5-10.8) 10^3/ul RBC (4.0-5.4) 10^6/ul Hgb (12.0-16.0) g/dl Hct (35-47) % MCV (80-97) fL MCH (27-31) pg MCHC (31-36) g/dl RDW (10.5-15) % Plt Count (150-450) 10^3/ul MPV (7.4-10.4) um3 Neut % (Auto) (38-83) % Lymph % (Auto) (25-47) % Nicollet % (Auto) (1-9) % Eos % (Auto) (0-6) % Baso % (Auto) (0-2) % Absolute Neuts (auto) (1.5-7.7) 10^3/ul Absolute Lymphs (auto) (1.0-4.8) 10^3/ul Absolute Monos (auto) (0-0.8) 10^3/ul Absolute Eos (auto) (0-0.6) 10^3/ul Absolute Basos (auto) (0-0.2) 10^3/ul Absolute Nucleated RBC 10^3/ul Nucleated RBC % INR (Anticoag Therapy) (0.89-1.11) APTT (26.0-36.3) seconds Sodium (133-145) mmol/L Potassium (3.5-5.0) mmol/L Chloride (101-111) mmol/L Carbon Dioxide (22-32) mmol/L Anion Gap (2-11) mmol/L BUN (6-24) mg/dL Creatinine (0.51-0.95) mg/dL Est GFR ( Amer) (>60) Est GFR (Non-Af Amer) (>60) BUN/Creatinine Ratio (8-20) Glucose (70-100) mg/dL Lactic Acid 0.7 (0.5-2.0) mmol/L Calcium (8.6-10.3) mg/dL Total Bilirubin (0.2-1.0) mg/dL AST (13-39) U/L ALT (7-52) U/L Alkaline Phosphatase (34-104) U/L Total Creatine Kinase (10-223) U/L Troponin I (<0.04) ng/mL C-Reactive Protein (< 5.00) mg/L B-Natriuretic Peptide 140 H ( - 100) pg/mL Total Protein (6.4-8.9) g/dL Albumin (3.2-5.2) g/dL Globulin (2-4) g/dL Albumin/Globulin Ratio (1-3) Procalcitonin 0.1 (<0.6) ng/mL Blood Type Antibody Screen Crossmatch 07/23/16 Range/Units 13:15 WBC (3.5-10.8) 10^3/ul RBC (4.0-5.4) 10^6/ul Hgb (12.0-16.0) g/dl Hct (35-47) % MCV (80-97) fL MCH (27-31) pg MCHC (31-36) g/dl RDW (10.5-15) % Plt Count (150-450) 10^3/ul MPV (7.4-10.4) um3 Neut % (Auto) (38-83) % Lymph % (Auto) (25-47) % Nicollet % (Auto) (1-9) % Eos % (Auto) (0-6) % Baso % (Auto) (0-2) % Absolute Neuts (auto) (1.5-7.7) 10^3/ul Absolute Lymphs (auto) (1.0-4.8) 10^3/ul Absolute Monos (auto) (0-0.8) 10^3/ul Absolute Eos (auto) (0-0.6) 10^3/ul Absolute Basos (auto) (0-0.2) 10^3/ul Absolute Nucleated RBC 10^3/ul Nucleated RBC % INR (Anticoag Therapy) (0.89-1.11) APTT (26.0-36.3) seconds Sodium (133-145) mmol/L Potassium (3.5-5.0) mmol/L Chloride (101-111) mmol/L Carbon Dioxide (22-32) mmol/L Anion Gap (2-11) mmol/L BUN (6-24) mg/dL Creatinine (0.51-0.95) mg/dL Est GFR ( Amer) (>60) Est GFR (Non-Af Amer) (>60) BUN/Creatinine Ratio (8-20) Glucose (70-100) mg/dL Lactic Acid (0.5-2.0) mmol/L Calcium (8.6-10.3) mg/dL Total Bilirubin (0.2-1.0) mg/dL AST (13-39) U/L ALT (7-52) U/L Alkaline Phosphatase (34-104) U/L Total Creatine Kinase (10-223) U/L Troponin I (<0.04) ng/mL C-Reactive Protein (< 5.00) mg/L B-Natriuretic Peptide ( - 100) pg/mL Total Protein (6.4-8.9) g/dL Albumin (3.2-5.2) g/dL Globulin (2-4) g/dL Albumin/Globulin Ratio (1-3) Procalcitonin (<0.6) ng/mL Blood Type A Positive Antibody Screen Negative Crossmatch See Detail Result Diagrams: 07/23/16 13:15 07/23/16 13:15 Lab Statement: Any lab studies that have been ordered have been reviewed, and results considered in the medical decision making process. - Radiology CXR Xray Interpretation: Positive (See Comments) - PROGRESSION OF LEFT UPPER LOBE AIRSPACE DISEASE AND RIGHT LOWER LOBE AND RIGHT INFRAHILAR MASS. Radiology Interpretation Completed By: Radiologist - EKG EK EKG Rhythm: Sinus Tachycardia - 106 bpm EKG Interpretation: nml AV. nml IV. nml axis. Altered Mental Statu Course/Dx - Course Course Of Treatment: Discussed patient care with Dr. Dominique (Hospitalist) at 1405. The pt will be admitted to [facility] and accepted by Dr. Dominique. Discussed treatment plan with Dr. Hathaway (Oncologist)-says to treat patient as a nosocomial infection. Will treat with Vancomvcin and Cefepime. - Diagnoses Differential Diagnosis/HQI/PQRI: CVA, Metabolic Disorder, Sepsis, Seizure Discharge Diagnoses: Pneumonia, Lung cancer - Provider Notifications Instructed by Provider To: Admit As Inpatient - Critical Care Time Critical Care Time: 30-74 min - 30mins Discharge - Discharge Plan Condition: Stable Disposition: ADMITTED TO [facility] The documentation as recorded by the Mariangel silvestre Michael accurately reflects the service I personally performed and the decisions made by me, Racheal Salvador MD.
[2016-07-23 17:49] LABS: Urine Bacteria Absent (Absent); Urine Bilirubin Negative (Negative); Urine Glucose Negative (Negative); Urine Nitrite Negative (Negative)
[2016-07-23] MEDS: Docusate CAP* 100 MG PO SCH (20:48)
[2016-07-23] MEDS: Apixaban* 5 MG TAB PO SCH (20:48)
[2016-07-23] MEDS: Lidocaine PATCH 5%* 1 PATCH TRANSDERM SCH (20:48)
--- NOTE | 2016-07-23 22:54 | HP ---
HISTORY AND PHYSICAL: DATE OF ADMISSION: 07/23/16 CHIEF COMPLAINT: Altered mental status, hypoxia. HISTORY OF PRESENT ILLNESS: Ms. Laura is a 71-year-old female with a past medical history of metastatic non-small cell lung cancer; hypothyroidism; trigeminal neuralgia; recently diagnosed DVT, on Xarelto; and recent admission for prophylactic left cephalomedullary nail in the setting of metastatic disease to the bone. The patient was just discharged from [facility] on July 21. During that time, she was found to have a DVT, started on Xarelto and also was treated for pneumonia with Levaquin. The patient is unable to contribute much of the history, does not recall what has happened this morning. Her family is present and states that since discharge the patient seemed to have progressively declined. They stated she has not been eating or drinking much, and also she seemed to be confused. She may be hallucinating and "talking in tongues." Family feels that the confusion may have started towards the end of the hospitalization, but has certainly gotten worse since discharge home. This morning, they stated she seemed worse, was very pale, and appeared very dry, so they called EMS. They stated that her oxygen was in the 50s when the EMS arrived. They report compliance with the patient's home Xarelto. She is normally on 2 L of oxygen at home. PAST MEDICAL HISTORY: 1. Metastatic non-small cell lung cancer with mets to bone including left femur , status post prophylactic cephalomedullary nail. 2. Hypothyroidism. 3. Trigeminal neuralgia. 4. Lupus. 5. Left lower extremity DVT, on Xarelto. PAST SURGICAL HISTORY: 1. Intramedullary nail. 2. D and C. 3. Tonsillectomy. 4. Tubal ligation. 5. Finger surgery. ALLERGIES: TEGRETOL, HYDROCHLOROTHIAZIDE, LATEX, and NICKEL. FAMILY HISTORY: Significant for a brother with lung cancer, mother with breast cancer, and a sister with colon and pancreatic cancer. SOCIAL HISTORY: The patient is a former smoker with [id number] smoking history; however, quit sometime ago. Lives at home with her . Occasional use of a glass of wine prior to this recent admission. REVIEW OF SYSTEMS: Unable to obtain from the patient. PHYSICAL EXAMINATION GENERAL: The patient is an elderly female, lying in bed, mild tachypnea. VITAL SIGNS: On admission temperature 100.2, heart rate of 110, O2 saturation 92% on 6 L, respiratory rate was initially 15 and then reached to 24, and blood pressure 116/75. HEENT: Pupils equal, round, reactive to light and accommodation. Anicteric sclerae. Dry mucous membranes. NECK: No cervical adenopathy. LUNGS: With diminished breath sounds in the left middle lung field and rhonchi on the right lower lung field. CARDIOVASCULAR: Tachycardia. No murmurs, rubs, or gallops. ABDOMEN: Soft, nontender, and nondistended. Bowel sounds positive. EXTREMITIES: Some mild pitting edema. NEUROLOGIC: The patient is alert and oriented to self and [facility] as well as the year. Cannot tell me the month or day of the week. Somewhat inattentive. No focal neurological deficits. DIAGNOSTIC STUDIES/LAB DATA: White blood cell count of 5.4, hemoglobin of 7.2 , hematocrit of 22, and platelets of 137. INR of 1.94. Sodium 132, potassium 4.0, chloride of 90, carbon dioxide of 35, BUN 13, creatinine 0.68, glucose 102 , lactic acid 0.7, and calcium of 8.2. CK of 32. Troponin 0.05. CRP of 195. B- natriuretic peptide of 140. EKG personally reviewed shows sinus tachycardia. Chest x-ray personally reviewed shows left upper lobe airspace disease and is read as progressive right lower lobe infrahilar mass as well. CT of the head with no acute disease. ASSESSMENT AND PLAN: Hospital-associated pneumonia in a 71-year-old female with past medical history of metastatic nonsmall cell lung cancer; hypothyroidism; trigeminal neuralgia; lupus; DVT, on Xarelto; recent left cephalomedullary nail placement; and recent pneumonia. 1. Hospital-associated pneumonia: We will treat the patient broadly with vancomycin and cefepime. Wean oxygen as tolerated. We will add on procalcitonin. The patient's influenza swab is pending. Follow culture data. Wean oxygen as tolerated. She is currently on 5 L. 2. Confusion, likely due to hypoxia: However, I will hold any centrally acting medications for now. 3. DVT prophylaxis: Continue home Eliquis. 4. Hypothyroidism: Continue home Synthroid. 5. Chronic pain: We will hold fentanyl patch, gabapentin, Flexeril, and Dilaudid. 6. Anemia: The patient's anemia seems chronic; however, in the setting of sepsis, I will transfuse 1 unit of packed red blood cells at this time. Recheck CBC in the morning. 7. Troponin elevation: It is mild at this time. The patient is not reporting any chest pain. Likely demand mediated. We will continue to trend for now. No significant ST changes or ischemic changes noted on EKG. TIME SPENT: Total time spent on this admission, 50 minutes with over half the time spent [id number] with the patient in counseling and coordinating care. CC: Lidia Terry MD* [id number]/[facility] #: [id number] MTDD
[2016-07-23] MEDS ORDERED: Amitriptyline TAB* 25 MG PO SCH (23:15)
[2016-07-24] MEDS: Vancomycin(*) 1,000 MG in NS 0.9% 250 ML* 250 ML IVPB SCH ×3 (01:02→17:42)
[2016-07-24] MEDS: Cefepime(*) 1 GM in NS 0.9% 50 ML* 50 ML IVPB SCH ×2 (03:40→16:31)
[2016-07-24] MEDS ORDERED: HYDROmorphone* 1 MG/ML 1 ML SYR ONE (04:16)
[2016-07-24 05:17] LABS: Hematocrit 24 % (35-47); Hemoglobin 7.9 g/dl (12.0-16.0); Mean Corpuscular HGB Conc 33 g/dl (31-36); Mean Corpuscular Hemoglobin 31 pg (27-31); Mean Corpuscular Volume 95 fL (80-97); Mean Platelet Volume 8 um3 (7.4-10.4); Red Blood Count 2.53 10^6/ul (4.0-5.4); Red Cell Distribution Width 17 % (10.5-15); White Blood Count 6.3 10^3/ul (3.5-10.8)
[2016-07-24 05:27] LABS: BUN/Creatinine Ratio 21.8 (8-20); Calcium 7.9 mg/dL (8.6-10.3); EGFR African American 140.1 (>60); Potassium 3.7 mmol/L (3.5-5.0)
[2016-07-24] MEDS: NS 0.9% 1000 ML* 1,000 ML IV SCH ×2 (05:45→20:00)
[2016-07-24] MEDS: Levothyroxine TAB* 125 MCG TAB PO SCH (05:49)
[2016-07-24] MEDS: Docusate CAP* 100 MG PO SCH ×2 (09:07→20:14)
[2016-07-24] MEDS: Atorvastatin* 10 MG TAB PO SCH (09:18)
[2016-07-24] MEDS: CMC:Meloxicam(NF) 7.5 MG TAB PO SCH (09:18)
[2016-07-24] MEDS: Acetaminophen TAB* 325 MG PO PRN (09:18)
[2016-07-24] MEDS: Aspirin EC Low Dose* 81 MG TAB.EC PO SCH (09:18)
[2016-07-24] MEDS: Apixaban* 5 MG TAB PO SCH ×2 (09:19→20:13)
[2016-07-24] MEDS: Lidocaine Patch REMOVE* 1 NOTE MISC PATCH OFF SCH (09:24)
[2016-07-24] MEDS: Lidocaine PATCH 5%* 1 PATCH TRANSDERM SCH (09:24)
--- NOTE | 2016-07-24 11:03 | PN ---
Progress Note - Progress Note SOAP: Subjective: []Continued confusion, oriented to place and situation. Had planned on XRT starting today. According to family, anorexia, progressive confusion at home, hypoxic with sat of 50% by EMS. In ER concern for pneumonia, admitted to ICU. Acetaminophen (Tylenol Tab*) 650 mg PO Q6H PRN PRN Reason: FEVER/PAIN Last Admin: 07/24/16 09:18 Dose: 650 mg Amitriptyline HCl (Elavil Tab*) 25 mg PO 2100 [facility] Last Admin: 07/23/16 23:14 Dose: 25 mg Apixaban (Eliquis*) 5 mg PO BID [facility] Last Admin: 07/24/16 09:19 Dose: 5 mg Aspirin (Aspirin Ec Low Dose*) 81 mg PO DAILY [facility] Last Admin: 07/24/16 09:18 Dose: 81 mg Atorvastatin Calcium (Lipitor*) 10 mg PO DAILY [facility] PRN Reason: Protocol Last Admin: 07/24/16 09:18 Dose: 10 mg Docusate Sodium (Colace Cap*) 100 mg PO BID [facility] Last Admin: 07/24/16 09:07 Dose: Not Given Hydromorphone HCl (Dilaudid Iv*) 0.5 mg IV SLOW PU Q4H PRN PRN Reason: PAIN Vancomycin HCl 1,000 mg/ (Sodium Chloride) 250 mls @ 166.667 mls/hr IVPB Q8H [facility] Last Admin: 07/24/16 09:17 Dose: 166.667 mls/hr Cefepime HCl 1 gm/ Sodium (Chloride) 50 mls @ 100 mls/hr IVPB Q12H [facility] Last Admin: 07/24/16 03:40 Dose: 100 mls/hr Sodium Chloride (Ns 0.9% 1000 Ml*) 1,000 mls @ 100 mls/hr IV PER RATE [facility] Last Admin: 07/24/16 05:45 Dose: 100 mls/hr Levothyroxine Sodium (Synthroid Tab*) 125 mcg PO 0600 [facility] Last Admin: 07/24/16 05:49 Dose: 125 mcg Lidocaine (Lidoderm 5% Patch*) 1 patch TRANSDERM Q12HR [facility] Last Admin: 07/24/16 09:24 Dose: 1 patch Meloxicam (Mobic(Nf)) 7.5 mg PO DAILY [facility] Last Admin: 07/24/16 09:18 Dose: 7.5 mg Ondansetron HCl (Zofran Odt Tab*) 4 mg PO Q6H PRN PRN Reason: NAUSEA/VOMITING Pharmacy Consult (Vancomycin Per Pharmacy*) 1 note FOLLOW UP . PRN PRN Reason: PER PROTOCOL Pharmacy Profile Note (Lidocaine Patch Remove*) 1 note PATCH OFF 0900 [facility] Last Admin: 07/24/16 09:24 Dose: 1 note Pharmacy Profile Note (Vancomycin Trough Check) 1 note FOLLOW UP 1700 ONE Stop: 07/24/16 17:01 Objective: [] Vital Signs Temp Pulse Resp BP Pulse Ox 99.9 F 110 19 107/53 92 07/24/16 07:50 07/24/16 10:10 07/24/16 10:10 07/24/16 10:10 07/24/16 10:10 HEENT - mucosa moist, pale Decreased BS, wheezing, no crackles RRR S1S2 Normal BS, NT/ND Ext - No c/c/e Neuro - strength is 5/5 and following commands. Oriented. CN 2-12 intact Assessment: []71 year old with history of NSCLC, presented with stage II disease but not surgical candidate. Treated with chemothepry and XRT in 11/2015. Remained disease free until 06/2015 when presented with recurrent disease in left femur and L2. Status post stabilization of femur and planning XRT. Course complicated by DVT, on Xeralto. She had low grade fever, confusion and decreased oxygen saturation. Admitted yesterday to ICU. Evaluation shows stable CXR, urine with leukocytes, no bacteria. In ICU, tolerating NC at 2 L. Plan: []1. Unclear if there is acute infection. Will continue antibiotics for time being. 2. Oxygen on 2L and sat > 90%, check walking O2 saturation 3. Will proceed with XRT to hip. 4. Encourage PO and follow intake 5. Delirium, stop Amitriptyline and follow.
[2016-07-24] MEDS ORDERED: Levalbuterol 1.25MG/0.5ML NEB INH PRN (11:08)
[2016-07-24] MEDS: HYDROmorphone* 1 MG/ML 1 ML SYR IV SLOW PU PRN ×2 (15:59→20:14)
[2016-07-24] MEDS ORDERED: Vancomycin Trough Check NOTE FOLLOW UP ONE (17:00)
[2016-07-24] MEDS: fentaNYL PATCH 50 MCG/HR TRANSDERM SCH (18:56)
[2016-07-24] MEDS: fentaNYL Patch Check Q Shift 1 NOTE SCH (18:57)
[2016-07-24] MEDS: Haloperidol TAB* 1 MG PO PRN ×2 (19:27→22:30)
[2016-07-24] MEDS ORDERED: Haloperidol TAB* 1 MG PO ONE (23:00)
[2016-07-24] MEDS: Amitriptyline TAB* 25 MG PO PRN (23:36)
[2016-07-25] MEDS: Vancomycin(*) 1,000 MG in NS 0.9% 250 ML* 250 ML IVPB SCH ×3 (01:37→17:21)
[2016-07-25] MEDS: Cefepime(*) 1 GM in NS 0.9% 50 ML* 50 ML IVPB SCH ×2 (05:00→15:40)
[2016-07-25] MEDS: Haloperidol TAB* 2 MG PO PRN ×3 (05:00→23:21)
[2016-07-25] MEDS: HYDROmorphone* 1 MG/ML 1 ML SYR IV SLOW PU PRN ×2 (05:00→16:35)
[2016-07-25] MEDS: fentaNYL Patch Check Q Shift 1 NOTE SCH ×2 (07:31→19:27)
[2016-07-25] MEDS: Levothyroxine TAB* 125 MCG TAB PO SCH (07:32)
[2016-07-25 07:39] LABS: Hematocrit 27 % (35-47); Mean Corpuscular HGB Conc 33 g/dl (31-36); Mean Corpuscular Hemoglobin 31 pg (27-31); Mean Corpuscular Volume 94 fL (80-97); Mean Platelet Volume 8 um3 (7.4-10.4); Red Blood Count 2.88 10^6/ul (4.0-5.4); Red Cell Distribution Width 16 % (10.5-15); White Blood Count 7.7 10^3/ul (3.5-10.8)
[2016-07-25 07:50] LABS: Albumin 2.5 g/dL (3.2-5.2); BUN/Creatinine Ratio 14.9 (8-20); Calcium 8.2 mg/dL (8.6-10.3); EGFR Non-African American 130.6 (>60); Globulin 3.2 g/dL (2-4); Potassium 3.2 mmol/L (3.5-5.0); Total Bilirubin 0.7 mg/dL (0.2-1.0); Total Protein 5.7 g/dL (6.4-8.9)
--- NOTE | 2016-07-25 10:33 | PN ---
Progress Note - Progress Note SOAP: Subjective: []Had a "terrible" night, SOB and couldn't sleep. Feels more alert and really wants to go home. Lower back pain controlled. Denies chest pain and SOB at this time. Has gotten up and moved around room only. No abd. upset, eating OK. Medications: Acetaminophen (Tylenol Tab*) 650 mg PO Q6H PRN PRN Reason: FEVER/PAIN Last Admin: 07/24/16 09:18 Dose: 650 mg Amitriptyline HCl (Elavil Tab*) 25 mg PO BEDTIME PRN PRN Reason: INSOMNIA Last Admin: 07/24/16 23:36 Dose: 25 mg Apixaban (Eliquis*) 5 mg PO BID [facility] Last Admin: 07/24/16 20:13 Dose: 5 mg Aspirin (Aspirin Ec Low Dose*) 81 mg PO DAILY [facility] Last Admin: 07/24/16 09:18 Dose: 81 mg Atorvastatin Calcium (Lipitor*) 10 mg PO DAILY [facility] PRN Reason: Protocol Last Admin: 07/24/16 09:18 Dose: 10 mg Docusate Sodium (Colace Cap*) 100 mg PO BID [facility] Last Admin: 07/24/16 20:14 Dose: 100 mg Fentanyl (Duragesic Patch 50 Mcg/Hr*) 50 mcg TRANSDERM Q72H [facility] Last Admin: 07/24/16 18:56 Dose: 50 mcg Haloperidol (Haldol Tab*) 2 mg PO Q3H PRN PRN Reason: AGITATION/ANXIETY Last Admin: 07/25/16 05:00 Dose: 2 mg Hydromorphone HCl (Dilaudid Iv*) 0.5 mg IV SLOW PU Q4H PRN PRN Reason: Pain severe Vancomycin HCl 1,000 mg/ (Sodium Chloride) 250 mls @ 166.667 mls/hr IVPB Q8H [facility] Last Admin: 07/25/16 01:37 Dose: 166.667 mls/hr Cefepime HCl 1 gm/ Sodium (Chloride) 50 mls @ 100 mls/hr IVPB Q12H [facility] Last Admin: 07/25/16 05:00 Dose: 100 mls/hr Sodium Chloride (Ns 0.9% 1000 Ml*) 1,000 mls @ 75 mls/hr IV PER RATE [facility] Levalbuterol HCl (Xopenex 1.25 Mg/0.5 Ml Neb.Nguyen*) 1.25 mg INH Q6H PRN PRN Reason: SOB/WHEEZING Last Admin: 07/24/16 13:39 Dose: 1.25 mg Levothyroxine Sodium (Synthroid Tab*) 125 mcg PO 0600 [facility] Last Admin: 07/25/16 07:32 Dose: 125 mcg Lidocaine (Lidoderm 5% Patch*) 1 patch TRANSDERM DAILY@2100 [facility] Meloxicam (Mobic(Nf)) 7.5 mg PO DAILY [facility] Last Admin: 07/24/16 09:18 Dose: 7.5 mg Morphine Sulfate (Morphine Oral Concentrate*) 5 mg PO [id number] AWAKE PRN PRN Reason: Pain or dyspnea Ondansetron HCl (Zofran Odt Tab*) 4 mg PO Q6H PRN PRN Reason: NAUSEA/VOMITING Pharmacy Profile Note (Lidocaine Patch Remove*) 1 note PATCH OFF 0900 [facility] Last Admin: 07/24/16 09:24 Dose: 1 note Pharmacy Profile Note (Fentanyl Patch Check Q Shift) 1 note N/A 0700,1900 [facility] Last Admin: 07/25/16 07:31 Dose: 1 note Objective: [] Vital Signs Temp Pulse Resp BP Pulse Ox 99.4 F 107 22 144/72 96 07/25/16 07:41 07/25/16 10:15 07/25/16 08:00 07/25/16 07:41 07/25/16 10:15 A&Ox3, EOMI, QUESADA, neuro grossly non-focal -- communicating easily and states understanding of plan of care HRR, tachycardic, rare ectopy on tele LS clear bilat., mildly labored breathing with supplemental O2 +BS, abd. soft and non-tender Laboratory Results - last 24 hr 07/24/16 07/25/16 07/25/16 16:01 07:14 07:14 WBC 7.7 RBC 2.88 L Hgb 9.0 L Hct 27 L MCV 94 MCH 31 MCHC 33 RDW 16 H Plt Count 149 L MPV 8 Neut % (Auto) 87.4 H Lymph % (Auto) 5.8 L [place] % (Auto) 6.2 Eos % (Auto) 0.3 Baso % (Auto) 0.3 Absolute Neuts (auto) 6.7 Absolute Lymphs (auto) 0.4 L Absolute Monos (auto) 0.5 Absolute Eos (auto) 0 Absolute Basos (auto) 0 Absolute Nucleated RBC 0 Nucleated RBC % 0 Sodium 131 L Potassium 3.2 L Chloride 94 L Carbon Dioxide 29 Anion Gap 8 BUN 7 Creatinine 0.47 L Est GFR ( Amer) 168.0 Est GFR (Non-Af Amer) 130.6 BUN/Creatinine Ratio 14.9 Glucose 92 Calcium 8.2 L Total Bilirubin 0.70 AST 38 ALT 33 Alkaline Phosphatase 103 Total Protein 5.7 L Albumin 2.5 L Globulin 3.2 Albumin/Globulin Ratio 0.8 L Vancomycin Trough 14.0 Assessment: []71 yo with metastatic lung cancer s/p right femoral stabilization with pin d/c 'd from PMRU 07/21 and presenting back to ER with acute confusion and hypoxia on 07/23 admitted for abx. with question of hospital acquired pneumonia. Although her procalcitonin was 0.1 she appears to be slowly improving on abx. Plan: []1. Pneumonia: will cont. Vancomycin through tonight (day 3), question if component of resp. difficulties is r/t disease therefore will obtain CT of chest today 2. Hypokalemia: additional IV potassium runs today and decrease IV fluids 3. Confusion: likely r/t infection, appears improved, will cont. caution with narcotics - decrease frequency of dilaudid and trial morphine concentrate PO PRN pain or dyspnea 4. Lung Cancer: starting palliative RT to hip today, CT as above
[2016-07-25] MEDS: Apixaban* 5 MG TAB PO SCH ×2 (10:54→19:32)
[2016-07-25] MEDS: Atorvastatin* 10 MG TAB PO SCH (10:54)
[2016-07-25] MEDS: Docusate CAP* 100 MG PO SCH ×2 (10:54→20:40)
[2016-07-25] MEDS: Aspirin EC Low Dose* 81 MG TAB.EC PO SCH (10:55)
[2016-07-25] MEDS ORDERED: Atorvastatin* 10 MG TAB ONE (11:02)
[2016-07-25] MEDS: Lidocaine Patch REMOVE* 1 NOTE MISC PATCH OFF SCH (11:11)
[2016-07-25] MEDS: NS 0.9% 1000 ML* 1,000 ML IV SCH (11:31)
[2016-07-25] MEDS: CMC:Meloxicam(NF) 7.5 MG TAB PO SCH (11:32)
[2016-07-25] MEDS ORDERED: Iohexol 300* (CONTRAST) 10 ML SDV IV ONE (12:50)
[2016-07-25] MEDS ORDERED: fentaNYL PATCH 50 MCG/HR ONE (13:10)
[2016-07-25] MEDS: Morphine ORAL CONCENTRATE* 5 MG/0.25 ML ORAL.SYRIN PO PRN ×3 (13:12→21:26)
[2016-07-25] MEDS: fentaNYL PATCH 50 MCG/HR TRANSDERM SCH (13:13)
--- NOTE | 2016-07-25 13:50 | RAD ---
HISTORY: Mass versus pneumonia COMPARISONS: July 23, 2016 chest x-ray, CT dated June 28, 2016 TECHNIQUE: Multiple contiguous axial CT scans of the chest were obtained with intravenous contrast. Coronal and sagittal multiplanar reformations are also submitted for review. FINDINGS: The study is limited by patient motion artifact. NECK AND THYROID: The lower neck and thyroid are unremarkable. CHEST WALL: There is no lower cervical, axillary, or supraclavicular lymphadenopathy by size criteria. HEART AND PERICARDIUM: The heart is unremarkable. AORTA AND PULMONARY VASCULATURE: The aorta and pulmonary vasculature are normal. MEDIASTINUM: There is no mediastinal lymphadenopathy by size criteria. ELLE: There is a right hilar mass, likely reflecting confluent hilar lymphadenopathy, measuring approximate 5.2 x 3.6 x 4.1 cm in size. This is increased in size from 4.4 cm in maximum dimension on June 28, 2026. AIRWAY AND ESOPHAGUS: There is bronchiectasis of the left upper lobe LUNG PARENCHYMA: There are persistent fibrotic changes of the left upper lung, with patchy associated ground glass opacification. There is emphysematous change of the right lung apex. There is a 0.6 cm nodule of the right upper lobe on axial image 17. There is a persistent 0.6 cm nodule of the left lower lobe PLEURA: There are moderate bilateral pleural effusions UPPER ABDOMEN: The upper abdomen is unremarkable. BONES AND SOFT TISSUES: Degenerative changes are noted of the spine OTHER: None. IMPRESSION: 1. THERE HAS BEEN INTERVAL PROGRESSION OF RIGHT HILAR LYMPHADENOPATHY. 2. PERSISTENT PULMONARY NODULARITY. THERE IS A 0.6 CM NODULE OF THE RIGHT UPPER LUNG THAT IS NOT CLEARLY SEEN ON THE MOST RECENT PREVIOUS EXAMINATION. 3. PERSISTENT MIXED AIRSPACE DISEASE AND FIBROTIC CHANGES AND BRONCHIECTASIS OF THE LEFT UPPER LUNG. 4. MODERATE BILATERAL PLEURAL EFFUSIONS
[2016-07-25] MEDS: KCL 20 MEQ/100 ML IVPREMIX* 20 MEQ/100 ML BAG IV SCH ×2 (14:48→20:34)
--- NOTE | 2016-07-25 15:41 | PN ---
Progress Note - Progress Note SOAP: Subjective: []Recurrent hypoxia with confusion following minimal exertion. Recovered with increased supplemental O2 to 8L, now back down to 5L. Very restless. Family concerned about pursuing RT if mom is dying. Medications: Acetaminophen (Tylenol Tab*) 650 mg PO Q6H PRN PRN Reason: FEVER/PAIN Last Admin: 07/24/16 09:18 Dose: 650 mg Amitriptyline HCl (Elavil Tab*) 25 mg PO BEDTIME PRN PRN Reason: INSOMNIA Last Admin: 07/24/16 23:36 Dose: 25 mg Apixaban (Eliquis*) 5 mg PO BID [facility] Last Admin: 07/25/16 10:54 Dose: 5 mg Aspirin (Aspirin Ec Low Dose*) 81 mg PO DAILY [facility] Last Admin: 07/25/16 10:55 Dose: 81 mg Atorvastatin Calcium (Lipitor*) 10 mg PO DAILY [facility] PRN Reason: Protocol Last Admin: 07/25/16 10:54 Dose: 10 mg Docusate Sodium (Colace Cap*) 100 mg PO BID [facility] Last Admin: 07/25/16 10:54 Dose: 100 mg Fentanyl (Duragesic Patch 50 Mcg/Hr*) 50 mcg TRANSDERM Q72H [facility] Last Admin: 07/25/16 13:13 Dose: 50 mcg Haloperidol (Haldol Tab*) 2 mg PO Q3H PRN PRN Reason: AGITATION/ANXIETY Last Admin: 07/25/16 11:31 Dose: 2 mg Hydromorphone HCl (Dilaudid Iv*) 0.5 mg IV SLOW PU Q4H PRN PRN Reason: Pain severe Vancomycin HCl 1,000 mg/ (Sodium Chloride) 250 mls @ 166.667 mls/hr IVPB Q8H [facility] Last Admin: 07/25/16 10:54 Dose: 166.667 mls/hr Cefepime HCl 1 gm/ Sodium (Chloride) 50 mls @ 100 mls/hr IVPB Q12H [facility] Last Admin: 07/25/16 05:00 Dose: 100 mls/hr Sodium Chloride (Ns 0.9% 1000 Ml*) 1,000 mls @ 75 mls/hr IV PER RATE [facility] Last Admin: 07/25/16 11:31 Dose: 75 mls/hr Levalbuterol HCl (Xopenex 1.25 Mg/0.5 Ml Neb.Nguyen*) 1.25 mg INH Q6H PRN PRN Reason: SOB/WHEEZING Last Admin: 07/24/16 13:39 Dose: 1.25 mg Levothyroxine Sodium (Synthroid Tab*) 125 mcg PO 0600 [facility] Last Admin: 07/25/16 07:32 Dose: 125 mcg Lidocaine (Lidoderm 5% Patch*) 1 patch TRANSDERM DAILY@2100 [facility] Meloxicam (Mobic(Nf)) 7.5 mg PO DAILY [facility] Last Admin: 07/25/16 11:32 Dose: 7.5 mg Morphine Sulfate (Morphine Oral Concentrate*) 5 mg PO [id number] AWAKE PRN PRN Reason: Pain or dyspnea Last Admin: 07/25/16 13:12 Dose: 5 mg Ondansetron HCl (Zofran Odt Tab*) 4 mg PO Q6H PRN PRN Reason: NAUSEA/VOMITING Pharmacy Profile Note (Lidocaine Patch Remove*) 1 note PATCH OFF 0900 [facility] Last Admin: 07/25/16 11:11 Dose: 1 note Pharmacy Profile Note (Fentanyl Patch Check Q Shift) 1 note N/A 0700,1900 [facility] Last Admin: 07/25/16 07:31 Dose: 1 note Objective: [] Vital Signs Temp Pulse Resp BP Pulse Ox 98.7 F 98 22 143/70 96 07/25/16 11:15 07/25/16 11:15 07/25/16 13:13 07/25/16 11:15 07/25/16 11:15 A&Ox3, EOMI, answering questions appropriately HRR - tachycardia on tele, rare ectopy Resp. mildly labored CT chest with new bilat pleural effusions, cont. fibrosis of right lung, and increased adenopathy left hillar Assessment/Plan:: []71 yo w metastatic lung cancer, admitted 3 days ago with acute confusion and hypoxia felt to be r/t infective process. Unfortunately while I initially felt she was improving this afternoon reveals limited improvement (though stable) and CT Scan concerning for progressive systemic disease beyond her known bone mets. Reviewed findings of plan with pt. and family and will pursue thoracentesis for diagnostic reasons (unfortunately she is on anti-coagulants therefore will need to hold and delay intervention tonight). Extensive discussion with family regarding what is currently known, they are very concerned that this acute episode represents a rapid decline and are very focused on QOL issues. At this time they have moved to delay RT until they understand the extent of her disease. Reviewed palliative nature of RT to bone lesions and discussed that while August has not made a dramatic improvement over the last 3 days it is difficult to know at this time if this represents a significant clinical decline or an acute insult. Discussed if there is progression option of pursuing systemic therapy, however she tolerated this very poorly in the past and it sounds as if she and the family would request a hospice consult if indicated. >40 min spent with pt. and family providing counseling []
[2016-07-25] MEDS: Lidocaine PATCH 5%* 1 PATCH TRANSDERM SCH (20:42)
[2016-07-25] MEDS: Amitriptyline TAB* 25 MG PO PRN (22:19)
[2016-07-26] MEDS: Vancomycin(*) 1,000 MG in NS 0.9% 250 ML* 250 ML IVPB SCH ×2 (01:18→09:33)
[2016-07-26] MEDS: Haloperidol TAB* 2 MG PO PRN ×2 (03:32→22:38)
[2016-07-26] MEDS: Cefepime(*) 1 GM in NS 0.9% 50 ML* 50 ML IVPB SCH ×2 (04:02→16:10)
[2016-07-26] MEDS: Levothyroxine TAB* 125 MCG TAB PO SCH (05:27)
[2016-07-26] MEDS: Morphine ORAL CONCENTRATE* 5 MG/0.25 ML ORAL.SYRIN PO PRN ×5 (05:32→22:39)
[2016-07-26] MEDS: fentaNYL Patch Check Q Shift 1 NOTE SCH ×2 (06:52→18:53)
[2016-07-26] MEDS: NS 0.9% 1000 ML* 1,000 ML IV SCH (08:01)
[2016-07-26] MEDS: Atorvastatin* 10 MG TAB PO SCH (09:30)
[2016-07-26] MEDS: Docusate CAP* 100 MG PO SCH ×2 (09:30→20:56)
[2016-07-26] MEDS: Aspirin EC Low Dose* 81 MG TAB.EC PO SCH (09:31)
[2016-07-26] MEDS: CMC:Meloxicam(NF) 7.5 MG TAB PO SCH (09:35)
[2016-07-26] MEDS: Lidocaine Patch REMOVE* 1 NOTE MISC PATCH OFF SCH (09:37)
[2016-07-26 09:47] LABS: Hematocrit 26 % (35-47); Hemoglobin 8.5 g/dl (12.0-16.0); Mean Corpuscular HGB Conc 32 g/dl (31-36); Mean Corpuscular Hemoglobin 31 pg (27-31); Mean Corpuscular Volume 94 fL (80-97); Mean Platelet Volume 8 um3 (7.4-10.4); Red Blood Count 2.77 10^6/ul (4.0-5.4); Red Cell Distribution Width 17 % (10.5-15); White Blood Count 6.4 10^3/ul (3.5-10.8)
[2016-07-26 10:17] LABS: Albumin 2.6 g/dL (3.2-5.2); BUN/Creatinine Ratio 9.6 (8-20); Calcium 8.3 mg/dL (8.6-10.3); EGFR African American 149.5 (>60); EGFR Non-African American 116.2 (>60); Globulin 3.1 g/dL (2-4); Potassium 3.3 mmol/L (3.5-5.0); Total Bilirubin 0.7 mg/dL (0.2-1.0); Total Protein 5.7 g/dL (6.4-8.9)
--- NOTE | 2016-07-26 11:05 | PN ---
Progress Note - Progress Note SOAP: Subjective: []Feeling OK today. "Waiting for answers." No complaints to this data analyst report writer. Medications: Acetaminophen (Tylenol Tab*) 650 mg PO Q6H PRN PRN Reason: FEVER/PAIN Last Admin: 07/24/16 09:18 Dose: 650 mg Amitriptyline HCl (Elavil Tab*) 25 mg PO BEDTIME PRN PRN Reason: INSOMNIA Last Admin: 07/25/16 22:19 Dose: 25 mg Aspirin (Aspirin Ec Low Dose*) 81 mg PO DAILY [facility] Last Admin: 07/26/16 09:31 Dose: 81 mg Atorvastatin Calcium (Lipitor*) 10 mg PO DAILY [facility] PRN Reason: Protocol Last Admin: 07/26/16 09:30 Dose: 10 mg Docusate Sodium (Colace Cap*) 100 mg PO BID [facility] Last Admin: 07/26/16 09:30 Dose: 100 mg Fentanyl (Duragesic Patch 50 Mcg/Hr*) 50 mcg TRANSDERM Q72H [facility] Last Admin: 07/25/16 13:13 Dose: 50 mcg Haloperidol (Haldol Tab*) 2 mg PO Q3H PRN PRN Reason: AGITATION/ANXIETY Last Admin: 07/26/16 03:32 Dose: 2 mg Hydromorphone HCl (Dilaudid Iv*) 0.5 mg IV SLOW PU Q4H PRN PRN Reason: Pain severe Last Admin: 07/25/16 16:35 Dose: 0.5 mg Vancomycin HCl 1,000 mg/ (Sodium Chloride) 250 mls @ 166.667 mls/hr IVPB Q8H [facility] Last Admin: 07/26/16 09:33 Dose: 166.667 mls/hr Cefepime HCl 1 gm/ Sodium (Chloride) 50 mls @ 100 mls/hr IVPB Q12H [facility] Last Admin: 07/26/16 04:02 Dose: 100 mls/hr Sodium Chloride (Ns 0.9% 1000 Ml*) 1,000 mls @ 75 mls/hr IV PER RATE [facility] Last Admin: 07/26/16 08:01 Dose: 75 mls/hr Levalbuterol HCl (Xopenex 1.25 Mg/0.5 Ml Neb.Nguyen*) 1.25 mg INH Q6H PRN PRN Reason: SOB/WHEEZING Last Admin: 07/24/16 13:39 Dose: 1.25 mg Levothyroxine Sodium (Synthroid Tab*) 125 mcg PO 0600 [facility] Last Admin: 07/26/16 05:27 Dose: 125 mcg Lidocaine (Lidoderm 5% Patch*) 1 patch TRANSDERM DAILY@2100 [facility] Last Admin: 07/25/16 20:42 Dose: 1 patch Meloxicam (Mobic(Nf)) 7.5 mg PO DAILY [facility] Last Admin: 07/26/16 09:35 Dose: 7.5 mg Morphine Sulfate (Morphine Oral Concentrate*) 5 mg PO [id number] AWAKE PRN PRN Reason: Pain or dyspnea Last Admin: 07/26/16 09:31 Dose: 5 mg Ondansetron HCl (Zofran Odt Tab*) 4 mg PO Q6H PRN PRN Reason: NAUSEA/VOMITING Pharmacy Profile Note (Lidocaine Patch Remove*) 1 note PATCH OFF 0900 [facility] Last Admin: 07/26/16 09:37 Dose: 1 note Pharmacy Profile Note (Fentanyl Patch Check Q Shift) 1 note N/A 0700,1900 [facility] Last Admin: 07/26/16 06:52 Dose: 1 note Objective: [] Vital Signs Temp Pulse Resp BP Pulse Ox 98.6 F 91 16 135/76 96 07/26/16 07:16 07/26/16 07:16 07/26/16 09:31 07/26/16 07:16 07/26/16 07:16 A&Ox3, answering questions appropriately and involved in decision making today. HRR, tachycardic at times on tele, rare ectopy LS clear throughout today with scattered wheeze, mildly labored +BS, abd. soft and non-tender No edema noted Laboratory Results - last 24 hr 07/25/16 07/26/16 07/26/16 07:14 09:18 09:18 WBC 6.4 RBC 2.77 L Hgb 8.5 L Hct 26 L MCV 94 MCH 31 MCHC 32 RDW 17 H Plt Count 138 L MPV 8 Neut % (Auto) 87.0 H Lymph % (Auto) 6.6 L [place] % (Auto) 5.3 Eos % (Auto) 0.9 Baso % (Auto) 0.2 Absolute Neuts (auto) 5.6 Absolute Lymphs (auto) 0.4 L Absolute Monos (auto) 0.3 Absolute Eos (auto) 0.1 Absolute Basos (auto) 0 Absolute Nucleated RBC 0 Nucleated RBC % 0 Sodium 132 L Potassium 3.3 L Chloride 94 L Carbon Dioxide 31 Anion Gap 7 BUN 5 L Creatinine 0.52 Est GFR ( Amer) 149.5 Est GFR (Non-Af Amer) 116.2 BUN/Creatinine Ratio 9.6 Glucose 134 H Calcium 8.3 L Total Bilirubin 0.70 AST 44 H ALT 38 Alkaline Phosphatase 103 Lactate Dehydrogenase 187 Total Protein 5.7 L Albumin 2.6 L Globulin 3.1 Albumin/Globulin Ratio 0.8 L Assessment: []71 yo f with metastatic lung cancer concerning for progression on CT 07/25 when compared to 06/28. Currently pending full work-up. Plan: []1. SIRS: present on admission (temp. and tachycardia with altered mental status and concerning hypoxia), felt initially to be r/t hospital acquired pneumonia, however limited improvement thus far on abx., and CT scan now with question of obstruction (ddx: post obstructive PNA, progressive cancer) -- procalcitonin negative, cultures negative. Remains tachycardic but no further fevers and BP stable over last 24 hrs. -- cont. abx. until further eval. as may be post obstructive 2. Acute respiratory distress: hypoxia on admission and felt initially to be r/ t PNA, now concerning for obstructive progression of malignancy -- cont. supplemental O2, wean as needed, support anxiety/agitation, utilize morphine palliatively as well -- requested consult with Dr. Randolph (call into her office) for possible bronch. and thoracentesis with cultures and biopsy 3. Hypokalemia: likely dilutional and will replace, however cont. hydration /c poor PO intake 4. Protein-caloric Malnutrition: appears mild r/t poor intake, but will eval. pre-albumin as well in terms of prognosis 5. DVT: HOLD eliquis d/t pending procedure, add TEDs 6. Metastatic Lung Cancer: pending work-up, family meeting planned with Dr. Hathaway this afternoon, HOLD RT for now Plan of care discussed with pt.'s daughter, Willow Barnes ([phone]) per pt.'s request
[2016-07-26] MEDS ORDERED: Vancomycin per Pharmacy* NOTE FOLLOW UP PRN (12:34)
[2016-07-26] MEDS: KCL 20 MEQ/100 ML IVPREMIX* 20 MEQ/100 ML BAG IV SCH ×2 (13:42→16:51)
[2016-07-26] MEDS: HYDROmorphone* 1 MG/ML 1 ML SYR IV SLOW PU PRN ×2 (15:22→20:56)
[2016-07-26] MEDS ORDERED: Vancomycin Trough Check NOTE FOLLOW UP ONE (16:30)
[2016-07-26] MEDS ORDERED: LORazepam INJ* 2 MG/ML 1 ML VIAL IV PUSH PRN (16:57)
--- NOTE | 2016-07-26 16:57 | RAD ---
INDICATION: Ultrasound guidance for thoracentesis on the left side. COMPARISON: Correlation is made with a prior CT of the chest from July 25, 2016. TECHNIQUE: Multiple real-time images of both sides of the chest were obtained. FINDINGS: There is only a small sliver of pleural fluid present on the right and left sides. There does not appear to be enough fluid for a thoracentesis. IMPRESSION: SIGNIFICANT INTERVAL DECREASE IN SIZE OF THE PREVIOUSLY NOTED PLEURAL EFFUSIONS.
[2016-07-26] MEDS: Apixaban* 5 MG TAB PO SCH (20:56)
[2016-07-26] MEDS: Lidocaine PATCH 5%* 1 PATCH TRANSDERM SCH (20:59)
[2016-07-26] MEDS ORDERED: Apixaban* 5 MG TAB PO SCH (21:00)
--- NOTE | 2016-07-26 21:59 | CONS ---
PULMONARY CONSULTATION REPORT: DATE OF CONSULT: 07/26/16 CONSULTATION REQUESTED BY: Tatum Barrera NP REASON FOR CONSULT: Evaluation of pleural effusion and abnormal CT chest. HISTORY OF PRESENT ILLNESS: The patient is a 71-year-old female with history of COPD, recent diagnosis of metastatic [id number] lung cancer with mets to bone including left femur. The patient known to me from outpatient evaluation. The patient was brought in by family for evaluation of altered mental status and shortness of breath. The patient was recently hospitalized in end of May for evaluation of similar complaints. The patient was discharged to inpatient rehab. The patient was discharged from the rehab home and was noted to have been having altered mental status. The patient was brought in for further evaluation. The patient underwent CT-guided biopsy of left lung in June 2015 and biopsy was positive for adenocarcinoma. The patient subsequently underwent EBUS at the negative nodes. The patient was treated with chemotherapy in November 2015, which was complicated by acute renal failure. The patient subsequently underwent XRT in December 2015. CT from May 2016 without recurrence, stable lymphadenopathy, and postradiation changes in the left lung. The patient was noted to have enhancing lesion at the level of L2 in the right pedicle concerning for metastatic disease. The patient has been on pain medications for pain relief. She underwent left hip fixation with the pin. The patient was supposed to undergo radiation for local control of the lesion. The patient was discharged from [facility] on 07/21/16. The patient was also recently diagnosed with DVT and was started on Xarelto. The patient was also treated for pneumonia with Levaquin. The patient was noted to have altered mental status and was brought in by family for further evaluation. The patient is currently being treated for hospital-acquired pneumonia. The patient had repeat CT scan of the chest. I have personally reviewed CT scan of the chest. The patient with evidence of scarring in the left lung consistent with prior radiation exposure and residual scarring. The patient also with interval progression of right hilar lymphadenopathy. The patient also with persistent pulmonary nodules with 0.6 cm nodule in the right upper lung that was not seen on prior scans. The patient also with evidence of airspace disease and scarring in the left upper lung. The patient also with small bilateral pleural effusions. Pulmonary consultation was requested for evaluation of pleural effusion and for consideration of thoracentesis and bronchoscopy. The patient was seen and examined at bedside earlier today. The patient appeared to be drowsy, arousable to verbal stimuli. The patient's family at bedside reported the patient just received Dilaudid for pain. I have requested bedside ultrasound for evaluation of pleural effusion. The patient noted to have very small effusions bilaterally not enough to be drained through thoracentesis. The patient with no lymphocytosis or fevers. The patient did not receive Eliquis since admission. The patient is on pain medications and antibiotics. PAST MEDICAL HISTORY: 1. Adenocarcinoma of left lung, status post chemoradiation, recent recurrence in left femur, status post pinning and awaiting radiation. 2. Hypothyroidism. 3. Trigeminal neuralgia. 4. COPD. 5. Lupus. 6. Recent diagnosis of left lower extremity DVT, on anticoagulation prior to the admission. PAST SURGICAL HISTORY: 1. Intramedullary nail placement in left femur. 2. D and C. 3. Tonsillectomy. 4. Tubal ligation. 5. Finger surgery. ALLERGIES: TEGRETOL, HYDROCHLOROTHIAZIDE, LATEX, NICKEL. FAMILY HISTORY: Brother with lung cancer, mother with breast cancer, and a sister with colon and pancreatic cancer. SOCIAL HISTORY: Former smoker with [id number] smoking history, quit recently. The patient's sister is her healthcare proxy. REVIEW OF SYSTEMS: Unable to obtain due to drowsiness. PHYSICAL EXAM: The patient in bed, in no apparent distress. Vital Signs: Temperature 98.5, heart rate 93 beats per minute, respiratory rate 20 per minute , O2 sat 99% on O2, blood pressure 117/64. HEENT: Pupils equal and reactive to light. Mucous membranes moist. Lung: Diminished breath sounds bilaterally at bases. Cardiovascular: S1, S2 present. No murmurs. Abdomen: Obese, soft , nontender, nondistended. Bowel sounds present. Extremities: No edema. Neurologic: Alert, awake, oriented x3 towards end of interview, was drowsy in the beginning. DIAGNOSTIC STUDIES/LAB DATA: WBC count 6.4, hemoglobin 8.5, hematocrit 26, platelet count 138. INR 1.94. Sodium 132, potassium 3.3, chloride 94, bicarb 31, BUN 5, creatinine 0.52. Influenza A and B negative. CT of the chest as described above in HPI. Chest ultrasound showed trace pleural effusions bilaterally. IMPRESSION/RECOMMENDATIONS: 71-year-old obese female with history of chronic obstructive pulmonary disease, possible metastatic adenocarcinoma of the lung with postradiation changes in the left lung, with concern for postobstructive pneumonia and with small pleural effusions bilaterally secondary to basal atelectasis. Thoracentesis could not be performed as there was minimal fluid bilaterally not enough to be drained with ultrasound-guided thoracentesis. I have discussed her prognosis and diagnostic and therapeutic approaches with her family members in detail. I do not believe bronchoscopy would be helpful in her case. My feeling is that she might have recurrence of lung cancer given that she does have metastatic disease in her bone. I would recommend palliative care approach. It will not alter the treatment much even if she is found to have postobstructive pneumonitis. She does have significantly enlarged nodes in the left hilum which might be resulting in effusions and also in extrinsic compression and obstruction of the left lower lobe. Thank you for allowing me to participate in the care of your patient. Will follow up with you. Total time spent at bedside including discussions with patient and family members exceeded 60 min [id number]/CPS #: [id number] MICHAELA
[2016-07-26] MEDS: Acetaminophen TAB* 325 MG PO PRN (23:46)
[2016-07-26] MEDS: Amitriptyline TAB* 25 MG PO PRN (23:47)
[2016-07-27] MEDS: NS 0.9% 1000 ML* 1,000 ML IV SCH (01:31)
[2016-07-27] MEDS: Cefepime(*) 1 GM in NS 0.9% 50 ML* 50 ML IVPB SCH ×2 (04:20→15:00)
[2016-07-27] MEDS: Haloperidol TAB* 2 MG PO PRN (04:28)
[2016-07-27] MEDS: Morphine ORAL CONCENTRATE* 5 MG/0.25 ML ORAL.SYRIN PO PRN ×4 (04:29→14:24)
[2016-07-27] MEDS: HYDROmorphone* 1 MG/ML 1 ML SYR IV SLOW PU PRN ×4 (06:21→14:47)
[2016-07-27] MEDS: Levothyroxine TAB* 125 MCG TAB PO SCH (06:31)
[2016-07-27 07:33] VITALS: BP 130/70
[2016-07-27] MEDS: fentaNYL Patch Check Q Shift 1 NOTE SCH (07:48)
[2016-07-27] MEDS: Aspirin EC Low Dose* 81 MG TAB.EC PO SCH (09:48)
[2016-07-27] MEDS: Atorvastatin* 10 MG TAB PO SCH (09:48)
[2016-07-27] MEDS: CMC:Meloxicam(NF) 7.5 MG TAB PO SCH (09:49)
[2016-07-27] MEDS: Docusate CAP* 100 MG PO SCH (09:49)
[2016-07-27] MEDS: Apixaban* 5 MG TAB PO SCH (09:49)
[2016-07-27] MEDS: Lidocaine Patch REMOVE* 1 NOTE MISC PATCH OFF SCH (09:52)
[2016-07-27] MEDS ORDERED: HYDROmorphone* 1 MG/ML 1 ML SYR ONE (12:50)
--- NOTE | 2016-07-27 22:40 | DS ---
DISCHARGE SUMMARY: DATE OF ADMISSION: 07/23/16 DATE OF DISCHARGE: 07/27/16 ATTENDING PHYSICIAN: Kalyn Watson MD * (DICTATED BY AKIKO CRUZ NP) DISCHARGE DIAGNOSES: 1. Metastatic non-small cell lung cancer; plan for transition to hospice. 2. Postobstructive pneumonia; subtle improvement on antibiotics. We will plan discharge home with p.o. meds to complete approximately 10 days. DISCHARGE MEDICATIONS: 1. Tylenol 650 mg p.o. q.6 hours p.r.n. pain or fever. 2. Meloxicam 7.5 mg p.o. daily. 3. Lidocaine patch 5% transdermally q.12 hours. 4. Amitriptyline 25 mg p.o. q.h.s. p.r.n. insomnia. 5. Eliquis 5 mg p.o. b.i.d. 6. Docusate sodium 100 mg p.o. b.i.d. 7. Levothyroxine 125 mcg p.o. q.a.m. 8. Ondansetron 4 mg p.o. q.6 hours p.r.n. nausea and vomiting. 9. Hydromorphone 2 mg p.o. q.2 hours p.r.n. pain. 10. Haloperidol 2 mg p.o. q.3 hours p.r.n. agitation/anxiety. 11. Xopenex 1.25 mg/0.5 mL inhaled q.6 hours p.r.n. shortness of breath or wheezing. 12. Morphine oral concentrate 5 mg p.o. q.2 hours p.r.n. pain or dyspnea. 13. Fentanyl 50 mcg transdermally q.72 hours. HOSPITAL COURSE: Please see admission note for full H and P. However, briefly Ms. Laura is well known to our service due to her unfortunate diagnosis of locally advanced non-small cell lung cancer, mid 2013 treated with definitive chemo RT. Since that time, Ms. Laura has been doing reasonable well having completed therapy in December of 2015. Unfortunately, Ms. Laura presented to the ER in the end of May of 2016 with severe back pain and was subsequently admitted for workup with findings of metastatic disease to her spine and left hip. During that admission, Ms. Laura had surgical intervention with pinning and she was subsequently discharged to acute rehab, [facility], and recovered very well. She was discharged from the hospital to the acute rehab unit on 07/21/16 to home. Subsequently, Ms. Laura presented to the ER via EMS on 07/23/16 with significant hypoxia and change in mental status. In the ER, a brain CT was unrevealing for intracranial cause and a chest x-ray revealed concern for pneumonia. Ms. Laura was admitted with treatment for hospital acquired pneumonia, she was placed in the ICU initially. Over the next 24 hours, Ms. Laura did show some improvement with stabilization of her oxygen using supplemental O2 and was transitioned to the telemetry floor the following day on 07/24/16. Her confusion appeared to improve. In question of delirium therefore fentanyl was decreased from 75 mcg to 50 mcg. The following day on 07/25/16, Ms. Laura had some continued shortness of breath, occasional agitation, and confusion as well as an episode of hypoxia requiring oxygen up to [address] of the chest revealed extensive fibrosis of the right lung (felt to be related to radiation treatment) and enlargement of left hilar lymph nodes when compared to 06/28/16. She also had bilateral pleural fusion. PLAN: The patient's status was discussed at length with the patient's family that afternoon and plan was made to evaluate her for possible thoracentesis, CT guided was unable to be performed due to anticoagulation. The following day, Dr. Randolph of Pulmonology, was consulted for possible bronchoscopy evaluation of the hilar mass/adenopathy and potential thoracentesis. Unfortunately ultrasound-guided thoracentesis was not successful due to limited fluid. Dr. Randolph's consultation on 07/26/16 did not recommend bronchoscopy feeling that there would be limited benefit. The family did meet with Dr. Hathaway, the patient' s primary oncologist, the evening of 07/26/16 as well. Throughout this workup and over the last 24 hours, the patient and family have decided that she would not like to pursue any further therapy and has decided instead to pursue hospice care at home. She very much would like to go home and as she is already set up with a hospital bed, it is felt this would reasonable with hospice sign-on within the next 24 hours. I did speak with the patient's daughter, Willow, who will be her primary caregiver and she is in agreement with getting Laura home [facility]. As such, Ms. Laura will be discharged home today with anabiotics to complete a total of 10 days, pain medication and hospice to sign on likely tomorrow. The patient will be transferred from the hospital via [facility] stretcher vehicle. TIME SPENT: Greater than 40 minutes spent with greater than 50% [id number] counseling. AKIKO CRUZ NP CC: Dr. Andrade* [id number]/CPS #: [id number] MICHAELA
== END 2016-07-27 16:06 | disposition hospice, home (50) | DRG 194 ==
LOC: ED 12:46 → ICU 14:09 → MEDTELE 07-24 12:00
PROVIDERS: ADMIT Hospitalist; ATTEND Internal Medicine Hematology & Oncology
PROC: 30233N1 Transfusion of Nonautologous Red Blood Cells into Peripheral Vein, Percutaneous Approach (ICD-10-PCS; principal; 2016-07-23)
DX: J18.8 Other pneumonia, unspecified organism (principal); C34.90 Malignant neoplasm of unspecified part of unspecified bronchus or lung; M32.9 Systemic lupus erythematosus, unspecified; C79.51 Secondary malignant neoplasm of bone; Z99.81 Dependence on supplemental oxygen; J90 Pleural effusion, not elsewhere classified; E44.1 Mild protein-calorie malnutrition; J44.9 Chronic obstructive pulmonary disease, unspecified; E78.00 Pure hypercholesterolemia, unspecified; I10 Essential (primary) hypertension; K21.9 Gastro-esophageal reflux disease without esophagitis; M19.90 Unspecified osteoarthritis, unspecified site; M06.9 Rheumatoid arthritis, unspecified; M41.9 Scoliosis, unspecified; G50.0 Trigeminal neuralgia; F32.9 Major depressive disorder, single episode, unspecified; E03.9 Hypothyroidism, unspecified; G89.29 Other chronic pain; R41.0 Disorientation, unspecified; D64.9 Anemia, unspecified; E87.6 Hypokalemia; R09.02 Hypoxemia; Z86.718 Personal history of other venous thrombosis and embolism; Z88.8 Allergy status to other drugs, medicaments and biological substances; Z91.040 Latex allergy status; Z87.01 Personal history of pneumonia (recurrent); Z92.3 Personal history of irradiation; Z92.21 Personal history of antineoplastic chemotherapy; Z80.1 Family history of malignant neoplasm of trachea, bronchus and lung; Z80.3 Family history of malignant neoplasm of breast; Z80.0 Family history of malignant neoplasm of digestive organs; Z98.51 Tubal ligation status; Z87.891 Personal history of nicotine dependence; Z68.26 Body mass index [BMI] 26.0-26.9, adult; Z79.01 Long term (current) use of anticoagulants
CPT/HCPCS: 36415; 70450; 71010; 71260; 76604; 77307; 77334; 80048; 80053; 80202; 81003; 81015; 82550; 83605; 83615; 83880; 84134; 84145; 84484; 85025; 85610; 85652; 85730; 86140; 86850; 86900; 86901; 86922; 87040; 87086; 87502; 87641; 94640; 94760; 99233; 99239; A9270-GY; J0692; J1170; J3370; J3480; P9040; Q9967